=== PATIENT | female | born 1945 | race Caucasian/White ===

== ENCOUNTER 2018-03-25 14:32 | Emergency (ER) | payer BC ==
--- NOTE | 2018-03-25 16:08 | RAD ---
Indication: Head injury. CT of the brain was performed without IV contrast. Ventricular structures are midline. No midline shift is noted. The extra-axial spaces are unremarkable. There is no evidence of intracranial mass or hemorrhage. No other high or low density lesions are identified. Scalp hematoma is noted over the left parietal area. Mastoid air cells and paranasal sinuses are otherwise unremarkable. IMPRESSION: SCALP HEMATOMA ON THE LEFT. NO INTRACRANIAL MASS OR HEMORRHAGE IS NOTED.
--- NOTE | 2018-03-25 16:44 | RAD ---
Indication: Bilateral hip pain post fall. LEFT hip replacement. Comparison: December 20, 2016 Technique: AP pelvis and AP and frog-leg lateral views bilateral hips. Report: The hips are normally located. The [place] RIGHT hip is without evidence for femoral neck fracture. Minimal osteophytic lipping of the RIGHT hip without significant joint space narrowing. The bipolar LEFT hip hemiprosthesis appears normally located and without evidence for prosthesis loosening or periprosthetic fracture. No pelvic fracture or joint diastases evident. Lumbar sacral spine degenerative spondylosis and facet joint osteoarthritis. Peripheral vascular calcifications. Unremarkable soft tissue contours. IMPRESSION: #. No radiographic evidence for fracture of the [place] RIGHT hip or periprosthetic fracture of the prosthetic LEFT hip. #. As x-rays may be negative with nondisplaced hip fracture if there is persistent clinical concern MRI or in setting of contraindication to MRI or limitation in emergent access to MRI CT would be suggested.
--- NOTE | 2018-03-25 16:48 | ED ---
Head Injury - HPI Summary HPI Summary: C/o bilat hip pain, posterior head contusion, nausea s/p mechanical fall today. pt fell backwards from standing position. Denies loc, vomiting, vision chnage, RODRIGUEZ, AMS, neck pain, back pain, chest wall pain, SOB, abdo pain, UE pain, trauma to face or mouth. No anti coag. med hx = HTN, DM. 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 Mechanism Of Injury: Fall From A Standing Position Onset/Duration: Started Hours Ago Onset of Pain: Immediate Severity Currently: Moderate Severity Initially: Moderate Pain Intensity: 8 Pain Scale Used: 0-10 Numeric Location: Discrete At: - posterior head Character: Dull, Throbbing Associated Signs And Symptoms: Nausea, Swelling - Allergies/Home Medications Allergies/Adverse Reactions: Allergies Allergy/AdvReac Type Severity Reaction Status Date / Time ciprofloxacin Allergy Muscle Ache Verified 03/25/18 16:37 Iodinated Contrast- Oral and Allergy Rash Verified 03/25/18 16:37 IV Dye Sulfa (Sulfonamide Allergy Rash Verified 03/25/18 16:37 Antibiotics) amoxicillin AdvReac GI Upset Verified 03/25/18 16:37 cephalexin AdvReac GI Upset Verified 03/25/18 16:37 clarithromycin AdvReac GI Upset Verified 03/25/18 16:37 clavulanic acid AdvReac GI Upset Verified 03/25/18 16:37 [From Augmentin] codeine AdvReac GI Upset Verified 03/25/18 16:37 levofloxacin [From Levaquin] AdvReac GI Upset Verified 03/25/18 16:37 oxycodone AdvReac GI Upset Verified 03/25/18 16:37 prednisone AdvReac Shakes Verified 03/25/18 16:37 ENVIRONMENT/SEASONAL Allergy ITCHY Uncoded 03/25/18 16:29 WATERY EYES LATEX SENSITIVITY Allergy LATEX Uncoded 03/25/18 16:29 BANDAGE-REDNESS, ITCHY, SORE PMH/Surg Hx/FS Hx/Imm Hx Endocrine/Hematology History: Reports: Hx Blood Transfusions, Hx Diabetes - TYPE II Denies: Hx Anticoagulant Therapy, Hx Blood Disorders, Hx Bone Marrow Disease , Hx Systemic Lupus Erythematosus, Hx Sickle Cell Disease, Hx Thyroid Disease, Hx Anemia, Hx Unexplained Bleeding Cardiovascular History: Reports: Hx Hypertension Denies: Hx Aneurysm, Hx Angina, Hx Angioplasty, Hx Auto Implanted Cardiovert Defib, Hx Cardiac Arrest, Hx Cardiomegaly, Hx Congenital Heart Disease, Hx Congestive Heart Failure, Hx Coronary Artery Disease, Hx Deep Vein Thrombosis, Hx Embolism, Hx Hypotension, Hx Pacemaker/ICD, Hx Peripheral Vascular Disease, Hx Rheumatic Fever, Hx Syncope, Other Cardiovascular Problems/Disorders Respiratory History: Reports: Other Respiratory Problems/Disorders - SINUS INFECTION Denies: Hx Asthma, Hx Chronic Obstructive Pulmonary Disease (COPD) GI History: Reports: Hx Gastroesophageal Reflux Disease, Hx Gastrointestinal Bleed, Hx Irritable Bowel, Hx Ulcer - gastric ulcer, Other GI Disorders - ISCHEMIC COLITIS Denies: Hx Cirrhosis, Hx Crohn's Disease, Hx Diverticulosis, Hx Gall Bladder Disease, Hx Hiatal Hernia, Hx Jaundice, Hx Obstructive Bowel, Hx Ileostomy, Hx Pyloric Stenosis History: Denies: Hx Renal Disease, Other Problems/Disorders - DENIES Musculoskeletal History: Reports: Hx Arthritis - shoulders, Hx Orthopedic Injury - left hip fracture Denies: Hx Back Problems, Hx Bursitis, Hx Congenital Bone Abnormalities, Hx Fibromyalgia, Hx Gout, Hx Osteoporosis, Hx Scoliosis, Hx Tendonitis, Other Musculoskeletal History Sensory History: Reports: Hx Cataracts - surgery 11/23/15, Hx Contacts or Glasses - awaiting new prescription, Hx Glaucoma, Hx Vision Problem Denies: Hx Eye Injury, Hx Eye Prosthesis, Hx Legally Blind, Hx Macular Degeneration, Hx Deafness, Hx Hearing Aid, Hx Hearing Problem, Other Sensory Impairments Opthamlomology History: Reports: Hx Cataracts - surgery 11/23/15, Hx Contacts or Glasses - awaiting new prescription, Hx Glaucoma, Hx Vision Problem Denies: Hx Eye Injury, Hx Eye Prosthesis, Hx Legally Blind, Hx Macular Degeneration, Other Sensory Impairments Neurological History: Reports: Hx Headaches - chronic, Hx Nerve Disease - left leg DUE TO SURGERY Denies: Hx Dementia, Hx Developmental Delay, Hx Migraine, Hx Seizures, Hx Spinal Cord Injury, Hx Transient Ischemic Attacks (TIA), Other Neuro Impairments /Disorders Psychiatric History: Denies: Hx Anxiety - ON MED FOR RODRIGUEZ, Hx Panic Disorder, Hx Substance Abuse - Cancer History Cancer Type, Location and Year: bleeding ulcer, colitis Hx Chemotherapy: No - Surgical History Surgery Procedure, Year, and Place: Hysterectomy-Complete 1979. Sinus surgery. 06/30/15 L HIP REPAIR WITH HARDWARE. BILATERAL CATARACTS/GLAUCOMA. LAZER SURGERY ON EYES Hx Anesthesia Reactions: No Infectious Disease History: No Infectious Disease History: Reports: Hx of Known/Suspected MRSA, Hx Shingles, History Other Infectious Disease - gerardia Denies: Hx Clostridium Difficile - R/o C.diff, Hx Hepatitis, Hx Human Immunodeficiency Virus (HIV), Hx Tuberculosis, Hx Known/Suspected VRE, Hx Known/ Suspected VRSA, Traveled Outside the [place] in Last 30 Days - Family History Known Family History: Positive: Cardiac Disease - Social History Alcohol Use: None Hx Substance Use: No Substance Use Type: Reports: None Hx Tobacco Use: No Smoking Status (MU): Never Smoked Tobacco Review of Systems Constitutional: Negative Eyes: Negative ENT: Negative Cardiovascular: Negative Respiratory: Negative Gastrointestinal: Negative Genitourinary: Negative Positive: Other Positive: Bruising Neurological: Negative Psychological: Normal All Other Systems Reviewed And Are Negative: Yes Physical Exam - Summary Physical Exam Summary: small contusion to posterior head, no abrasion or lac. no trauma to face or mouth noted. no pain with palpation of face, neck, back, chest wall, abdomen, bilat UE, bilat LE below hips. TTP at bilat hips. pt bale to flex and extend bilat knees and hips. Neuro exam nml. Triage Information Reviewed: Yes Vital Signs On Initial Exam: Initial Vitals Temp Pulse Resp BP Pulse Ox 98.8 F 66 16 186/73 97 03/25/18 14:36 03/25/18 14:36 03/25/18 14:36 03/25/18 14:36 03/25/18 14:36 Vital Signs Reviewed: Yes Appearance: Positive: Well-Appearing Skin: Positive: Warm Head/Face: Positive: Normal Head/Face Inspection Eyes: Positive: Normal Neck: Positive: Supple Respiratory/Lung Sounds: Positive: Clear to Auscultation Cardiovascular: Positive: Normal Abdomen Description: Positive: Nontender Musculoskeletal: Positive: Normal Neurological: Positive: Normal Psychiatric: Positive: Normal AVPU Assessment: Alert - Parrish Coma Scale Best Eye Response: 4 - Spontaneous Best Motor Response: 6 - Obeys Commands Best Verbal Response: 5 - Oriented Coma Scale Total: 15 Diagnostics - Vital Signs Vital Signs Temp Pulse Resp BP Pulse Ox 03/25/18 14:36 98.8 F 66 16 186/73 97 - Laboratory Lab Statement: Any lab studies that have been ordered have been reviewed, and results considered in the medical decision making process. - Radiology hips Xray Interpretation: No Acute Changes Radiology Interpretation Completed By: Radiologist - CT brain CT Interpretation: No Acute Changes CT Interpretation Completed By: Radiologist Head Injury Course/Dx Course Of Treatment: C/o bilat hip pain, posterior head contusion, nausea s/p mechanical fall today. pt fell backwards from standing position. Denies loc, vomiting, vision chnage, RODRIGUEZ, AMS, neck pain, back pain, chest wall pain, SOB, abdo pain, UE pain, trauma to face or mouth. No anti coag. med hx = HTN, DM. PE : small contusion to posterior head, no abrasion or lac. no trauma to face or mouth noted. no pain with palpation of face, neck, back, chest wall, abdomen, bilat UE, bilat LE below hips. TTP at bilat hips. pt bale to flex and extend bilat knees and hips. Neuro exam nml. Pt ambulated at baseline after being told CT brain and xray hips were NEG. Follow up with primary care. Tylenol for pain. - Diagnoses Provider Diagnoses: Fall Discharge - Sign-Out/Discharge Documenting (check all that apply): Patient Departure - Discharge Plan Condition: Stable Disposition: HOME Patient Education Materials: Head Injury (ED) Referrals: Austyn Boyd MD [Primary Care Provider] - Additional Instructions: Follow up with primary care. Take tylenol for pain. Return to ED for any new or worsening symptoms., - Billing Disposition and Condition Condition: STABLE Disposition: Home
[2018-03-25 17:52] VITALS: BP 200/76
== END 2018-03-25 17:49 | disposition home or self-care (01) ==
LOC: ED 14:32
DX: S00.93XA Contusion of unspecified part of head, initial encounter (principal); M25.552 Pain in left hip; R11.0 Nausea; F41.9 Anxiety disorder, unspecified; I10 Essential (primary) hypertension; E11.9 Type 2 diabetes mellitus without complications; W19.XXXA Unspecified fall, initial encounter; Y92.9 Unspecified place or not applicable; Z79.899 Other long term (current) drug therapy; Z88.3 Allergy status to other anti-infective agents; Z88.2 Allergy status to sulfonamides; Z91.041 Radiographic dye allergy status; Z88.5 Allergy status to narcotic agent; Z88.8 Allergy status to other drugs, medicaments and biological substances
CPT/HCPCS: 70450; 73523; 99282

== ENCOUNTER 2018-03-31 16:19 | Emergency (ER) | payer BC ==
--- OUTSIDE RECORDS SUMMARY | 2018-03-31 16:47 | XMS REPORT ---
:1945 External Reference #:[id number] Author Organization Red Tom M.D., [facility] Address [address] [place] [address] Phone [phone] Care Team Providers Name Role Phone Austyn Boyd MD Care Team Information Special Assemblies Supervisor Unavailable Austyn Boyd MD Primary Care Physician Unavailable Payers Type Date Identification Numbers Payment Provider Subscriber Commercial Policy Number: [id number] [employer] Joaquín Hopson Huy PayID: [id number] [address] [address] [place] [address] Problems Date Description Provider Status Onset: 09/17/2013 Type 2 diabetes mellitus Active Onset: 09/17/2013 Essential hypertension Active Onset: 09/17/2013 Ocular hypertension Ottoniel Yin O.D. Active Onset: 09/17/2013 Chronic conjunctivitis Ottoniel Yin O.D. Active Onset: 01/14/2014 Chronic allergic conjunctivitis Ottoniel Yin O.D. 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 Active Onset: 04/21/2014 Tear film insufficiency Ottoniel Yin O.D. Active Onset: 04/21/2014 Cortical senile cataract Ottoniel Yin O.D. Active Onset: 04/21/2014 Nuclear senile cataract Ottoniel Yin O.D. Active Onset: 09/14/2015 Combined form of senile cataract Ottoniel Yin O.D. 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 Active Onset: 11/10/2015 Convalescence after surgery Red Tom M.D. Active Onset: 11/23/2015 Presence of intraocular lens Ottoniel Yin O.D. Active Onset: 02/12/2017 Other secondary cataract, right eye eRd Tom M.D. Active Onset: 02/12/2017 Other secondary cataract, left eye Red Tom M.D. Active Family History Date Family Member(s) Problem(s) Comments Father due to Diabetes () Father Glasses Father due to Heart Attack () Father Diabetes Father Heart Disease Father High BP Mother due to Cervical Cancer () Mother Cancer Mother Thyroid Disease Mother Glasses Mother Arthritis Social History Type Date Description Comments ETOH Use Rarely consumes alcohol Smoking Patient has never smoked Allergies, Adverse Reactions, Alerts Date Description Reaction Status Severity Comments 09/17/2013 Codeine active 09/17/2013 Sulfa Antibiotics active 09/17/2013 Codeine active 09/17/2013 Biaxin active 09/17/2013 Levaquin active 09/17/2013 Augmentin active 09/14/2015 Cipro active Medications Medication Date Status Form Strength Qnty SIG Indications Ordering Provider Timolol Maleate 09/27/ Active Solution 0.5% 15ml one H40.1131 Ottoniel 2018 drop Moon, twice a OD day both eyes Gabapentin / Active Capsules 300mg Amilcardery 0000 , Mini Sertraline HCL / Active Tablets 50mg Cowdery 0000 MD, Mini Glucophage / Active Tablets 500mg Breiman 0000 , Austyn Glyburide / Active Tablets 2.5mg Breiman 0000 , Austyn Lisinopril / Active Tablets 10mg Breiman 0000 , Austyn Onetouch Ultra / Active Strips Breiman Blue 0000 , Austyn Escitalopram / Active Tablets 5mg Cowdery Oxalate 0000 , Mini Montelukast / Active Tablets 10mg Breiman Sodium 0000 , Austyn Sertraline HCL / Active Tablets 100mg Cowdery 0000 , Mini Zyrtec Allergy / Active Capsules 10mg Unknown 0000 Betimol 02/12/ Hx Solution 0.5% 10ml 1 gtt H26.491 Red 2017 - od bid Vaishali 02/12Maria R Morrell 2017 Timolol Maleate 02/12/ Hx Solution 0.25% 15ml 1 drop Red 2016 - both Tom, 03/27/ eyes M.D. 2017 twice a day Latanoprost 06/30/ Hx Solution 0.005% 7.500m 1 drop Red 2016 - l drops Vaishali, 03/27/ both M.D. 2017 eyes every night Ketorolac 10/21/ Hx Solution 0.5% 10ml 1 drops Red Tromethamine 2015 - left Vaishali, 12/01/ eye M.D. 2016 twice a day Pred Forte 10/21/ Hx Suspension 1% 10ml 1 drops Red 2015 - left Vaishali, 12/01/ eye M.D. 2016 four times a day Tobramycin 10/21/ Hx Solution 0.3% 5ml 1 drop Red 2015 - drops Vaishali, 12/01/ left M.D. 2016 eye four times a day Timolol Maleate 12/15/ Hx Solution 0.25% 15ml 1 drop Ottoniel 2014 - both Humphrey, 01/16/ eyes O.D. 2016 twice a day Timolol Maleate 12/02/ Hx Solution 0.5% 15ml 1 drop Ottoniel 2013 - drops Humphrey, 12/15/ both O.D. 2015 eyes twice a day Latanoprost 09/17/ Hx Solution 0.005% 7.500m 1 drop Ottoniel 2013 - l drops Humphrey, 12/01/ both O.D. 2016 eyes every night Hyoscyamine / Hx Tablets 0.125mg Breiman Sulfate Mikhail Mayorga MD, 2016 Pantoprazole / Hx Tablets DR 40mg Breiman Sodium Mikhail Mayorga MD, 2016 Alphagan P / Hx Solution 0.1% Unknown 0000 - 2013 Linzess / Hx Capsules 145mcg [place] MD 2016 Mupirocin / Hx Ointment 2% Deb Mayorga MD, 2016 Nystatin/Triamci / Hx Cream 872418-9.1 Unknown nolone 0000 - Unit/GM-% 2016 Venlafaxine HCL / Hx Caps ER 24HR 37.5mg Cowdery ER 0000 Mini Mayorga MD 2016 Benzonatate / Hx Capsules 200mg Jocelynn 0000 - INT[employer]ER, July 2016 Venlafaxine HCL / Hx Caps ER 24HR 75mg Cowdery ER 0000 - , Mini 2016 Terconazole / Hx Cream 0.4% Breiman 0000 - MD, 2016 Ciprofloxacin / Hx Tablets 500mg Unknown HCL 0000 - 2016 Metronidazole / Hx Tablets 500mg Unknown 0000 - 2016 Nortriptyline / Hx Capsules 10mg Cowdery HCL 0000 - MD, Mini 2016 Tramadol HCL / Hx Tablets 50mg Haile 0000 Mukesh PEACRE, Mini 2016 Sertraline HCL / Hx Tablets 25mg Haile 0000 - MD, Mini 2016 Cholestyramine / Hx Powder Unknown 0000 - 2016 Vital Signs Date Vital Result Comment 03/28/2018 Intraocular Pressure Right Eye 12 mmHg Intraocular Pressure Left Eye 13 mmHg 12/27/2017 Intraocular Pressure Right Eye 15 mmHg Intraocular Pressure Left Eye 14 mmHg 10/15/2017 Intraocular Pressure Right Eye 13 mmHg 09/27/2017 Intraocular Pressure Right Eye 12 mmHg Intraocular Pressure Left Eye 13 mmHg 06/27/2017 Intraocular Pressure Right Eye 12 mmHg Intraocular Pressure Left Eye 12 mmHg 03/27/2017 Intraocular Pressure Right Eye 14 mmHg Intraocular Pressure Left Eye 14 mmHg 02/27/2017 Intraocular Pressure Right Eye 16 mmHg Intraocular Pressure Left Eye 16 mmHg 02/21/2017 Intraocular Pressure Right Eye 12 mmHg Intraocular Pressure Left Eye 12 mmHg 02/12/2017 Intraocular Pressure Right Eye 15 mmHg Intraocular Pressure Left Eye 15 mmHg 01/02/2017 Intraocular Pressure Right Eye 15 mmHg Intraocular Pressure Left Eye 15 mmHg 10/04/2016 Intraocular Pressure Right Eye 15 mmHg Intraocular Pressure Left Eye 15 mmHg 06/29/2016 Intraocular Pressure Right Eye 13 mmHg Intraocular Pressure Left Eye 13 mmHg 04/03/2016 Intraocular Pressure Right Eye 12 mmHg Intraocular Pressure Left Eye 12 mmHg 01/17/2016 Intraocular Pressure Right Eye 15 mmHg Intraocular Pressure Left Eye 15 mmHg 12/16/2015 Intraocular Pressure Right Eye 16 mmHg Intraocular Pressure Left Eye 16 mmHg 12/02/2015 Intraocular Pressure Right Eye 21 mmHg Intraocular Pressure Left Eye 17 mmHg 11/23/2015 Intraocular Pressure Right Eye 26 mmHg Intraocular Pressure Left Eye 32 mmHg 11/17/2015 Intraocular Pressure Right Eye 23 mmHg Intraocular Pressure Left Eye 20 mmHg 11/10/2015 Intraocular Pressure Left Eye 9 mmHg 10/20/2015 Intraocular Pressure Right Eye 16 mmHg Intraocular Pressure Left Eye 14 mmHg 09/14/2015 Intraocular Pressure Right Eye 12 mmHg Intraocular Pressure Left Eye 10 mmHg 04/15/2015 Intraocular Pressure Right Eye 11 mmHg Intraocular Pressure Left Eye 10 mmHg 01/12/2015 Intraocular Pressure Right Eye 11 mmHg Intraocular Pressure Left Eye 11 mmHg 12/15/2014 Intraocular Pressure Right Eye 14 mmHg Intraocular Pressure Left Eye 11 mmHg 10/22/2014 Intraocular Pressure Right Eye 15 mmHg Intraocular Pressure Left Eye 15 mmHg 07/22/2014 Intraocular Pressure Right Eye 11 mmHg Intraocular Pressure Left Eye 10 mmHg 04/21/2014 Intraocular Pressure Right Eye 11 mmHg Intraocular Pressure Left Eye 10 mmHg 01/14/2014 Intraocular Pressure Right Eye 14 mmHg Intraocular Pressure Left Eye 13 mmHg 09/17/2013 Intraocular Pressure Right Eye 13 mmHg Intraocular Pressure Left Eye 12 mmHg Results Test Date Test Result H/L Range Note Laboratory test finding 11/16/2015 Point of Care Glucose 115 mg/dL High 74 -106 1 Laboratory test finding 11/09/2015 Point of Care Glucose 117 mg/dL High 74 -106 2 1 [place] Block Paver: [id number] KINJALSTEPHON ODEN 2 Gran[place] Block Paver: [id number] ELYSIA LU Emiliana Procedures Date CPT Code Description Status 03/28/2018 27129 Eye Exam Est Intermediate Completed 12/27/2017 73722 Fundus Photography W/Interpretation & Report Completed 12/27/2017 65416 Ophthalmoscopy Subsequent Completed 12/27/2017 26182 Eye Exam Est Intermediate Completed 10/15/2017 58907 Ophthalmoscopy Subsequent Completed 10/15/2017 40654 Eye Exam Est Intermediate Completed 09/27/2017 37187 Eye Exam Est Intermediate Completed 06/27/2017 88360 Visual Field Exam Extended, Unilateral Or Bilateral Completed 06/27/2017 07570 Eye Exam Est Intermediate Completed 03/27/2017 54705 Eye Exam Est Intermediate Completed 03/27/2017 16475 Oct, Optic Nerve Completed 02/27/2017 34184 Eye Exam Est Intermediate Completed 02/21/2017 95254 Remove Secondary Cataract, Laser (Yag) Completed 02/12/2017 32043 Remove Secondary Cataract, Laser (Yag) Completed 01/02/2017 45058 Fundus Photography W/Interpretation & Report Completed 01/02/2017 35836 Ophthalmoscopy Subsequent Completed 01/02/2017 92079 Eye Exam Est Comprehensive Completed 10/04/2016 63775 Oct, Optic Nerve Completed 10/04/2016 29243 Eye Exam Est Intermediate Completed 06/29/2016 84112 Eye Exam Est Intermediate Completed 06/29/2016 26332 Visual Field Exam Extended, Unilateral Or Bilateral Completed 04/03/2016 17065 Fundus Photography W/Interpretation & Report Completed 04/03/2016 52038 Refraction Completed 04/03/2016 86569 Eye Exam Est Intermediate Completed 11/16/2015 46512 Extracapsular Cataract Extraction W/Intraocular Lens Completed 11/16/2015 0191T Insertion Of Anterior Segment Aqueous Drainage Device Completed 11/09/2015 01997 Extracapsular Cataract Extraction W/Intraocular Lens Completed 11/09/2015 0191T Insertion Of Anterior Segment Aqueous Drainage Device Completed 10/20/2015 13326 Eye Exam Est Intermediate Completed 10/20/2015 05538 Ophthalmic Biometry By Partial Coherence Interferometry Completed W/Intra 09/14/2015 24809 Oct Retina Completed 09/14/2015 72217 Eye Exam Est Intermediate Completed 04/15/2015 35854 Oct Retina Completed 04/15/2015 75208 Eye Exam Est Comprehensive Completed 01/12/2015 00905 Visual Field Exam Extended, Unilateral Or Bilateral Completed 01/12/2015 04655 Eye Exam Est Intermediate Completed 12/15/2014 77619 Eye Exam Est Intermediate Completed 10/22/2014 91311 Eye Exam Est Intermediate Completed 10/22/2014 12314 Oct, Optic Nerve Completed 07/22/2014 04891 Eye Exam Est Intermediate Completed 04/21/2014 75955 Fundus Photography W/Interpretation & Report Completed 04/21/2014 14389 Refraction Completed 04/21/2014 03011 Eye Exam Est Comprehensive Completed 01/14/2014 44464 Visual Field Exam Extended, Unilateral Or Bilateral Completed 01/14/2014 55556 Eye Exam Est Intermediate Completed 09/17/2013 87398 Eye Exam Est Intermediate Completed 12/19/2011 15163 Eye Exam Est Intermediate Completed 12/19/2011 15828 Visual Field Exam Extended, Unilateral Or Bilateral Completed 12/19/2011 15420 Oct, Optic Nerve Completed 08/29/2011 85787 Eye Exam Est Intermediate Completed 08/29/2011 94888 Corneal Pachymetry, Unilateral/Bilateral Completed 07/21/2011 01150 Eye Exam Est Intermediate Completed 06/19/2011 98107 Visual Field Exam Extended, Unilateral Or Bilateral Completed 06/19/2011 77456 Eye Exam Est Intermediate Completed 06/06/2011 74261 Eye Exam Est Intermediate Completed 04/20/2011 23274 Eye Exam Est Intermediate Completed 03/29/2011 14329 Eye Exam Est Intermediate Completed 03/17/2011 74303 Eye Exam Est Comprehensive Completed 03/17/2011 78737 Refraction Completed 03/17/2011 76908 Fundus Photography W/Interpretation & Report Completed 12/16/2010 73056 Eye Exam Est Intermediate Completed 11/08/2010 97586 Eye Exam Est Intermediate Completed 10/24/2010 57529 Eye Exam Est Intermediate Completed 10/17/2010 86563 Eye Exam Est Intermediate Completed 10/13/2010 17486 Eye Exam Est Intermediate Completed 09/19/2010 47445 Refraction Completed 09/19/2010 34829 Eye Exam Est Intermediate Completed 09/12/2010 86583 Eye Exam Est Intermediate Completed 06/30/2010 71187 Eye Exam Est Intermediate Completed 03/31/2010 23080 Visual Field Exam Extended, Unilateral Or Bilateral Completed 03/31/2010 86483 Eye Exam Est Intermediate Completed 03/17/2010 60885 Fundus Photography W/Interpretation & Report Completed 03/17/2010 87919 Ophthalmoscopy Initial Completed 03/17/2010 51541 Refraction Completed 03/17/2010 57744 Eye Exam New Comprehensive Completed 03/17/2010 37212 Corneal Pachymetry, Unilateral/Bilateral Completed Encounters Type Date Location Provider CPT E/M Dx Office Visit 10/29/2017 10:15a [place] [address] E11.3293 H43.811 H40.1131 Office Visit 09/13/2011 3:30p Main Office Red Tom M.D. 55214 365.10 Office Visit 08/11/2011 9:40a Main Office DR. Gisselle Mejias O.D. 35636 372.14 Office Visit 05/19/2011 2:30p Main Office Red Tom M.D. 24610 365.10 Office Visit 05/04/2011 10:15a Main Office Red Tom M.D. 46528 365.10 373.32 Office Visit 04/28/2011 9:40a Main Office DR. Gisselle Mejias O.D. 01911 372.14 Office Visit 04/05/2011 10:00a Main Office Red Tom M.D. 04042 373.32 365.10 Plan of Care Future Appointment(s):06/28/2018 9:00 am - Ottoniel Moon, OD at [id number] - Ottoniel Moon, ODH40.1131 Primary open-angle glaucoma, bilateral, mild stageFollow up:3 mos VF, sooner PRN
--- OUTSIDE RECORDS SUMMARY | 2018-03-31 16:48 | XMS REPORT ---
:1945 External Reference #:[id number] Author Organization Red Tom M.D., [facility] Address [address] [facility] [address] [place] [address] Phone [phone] Care Team Providers Name Role Phone Austyn oByd MD Care Team Information Net Developer Programmer Unavailable Austyn Boyd MD Primary Care Physician Unavailable Payers Type Date Identification Numbers Payment Provider Subscriber Commercial Policy Number: [id number] [employer] Joaquín Hopson Huy PayID: [id number] [address] [address] [place] [address] Problems Date Description Provider Status Onset: 09/17/2013 [...] Onset: 02/12/2017 Other secondary cataract, right eye Red Tom M.D. Active Onset: 02/12/2017 Other secondary [...] Mayorga MD, 2016 Nystatin/Triamci / Hx Cream [id number] Unknown nolone 0000 - Unit/GM-% 2016 Venlafaxine HCL / Hx Caps ER 24HR 37.5mg Cowdery ER 0000 Mini Mayorga MD 2016 Benzonatate / Hx Capsules 200mg Jocelynn 0000 - SURVEYOR, July 2016 Venlafaxine HCL / Hx Caps ER 24HR 75mg Cowdery ER 0000 - , Mini 2016 Terconazole / Hx Cream 0.4% Breiman 0000 - MD, 2016 Ciprofloxacin / Hx Tablets 500mg Unknown HCL 0000 - 2016 Metronidazole / Hx Tablets 500mg Unknown 0000 - 2016 Nortriptyline / Hx Capsules 10mg Cowdery HCL 0000 - , Mini 2016 Tramadol HCL / Hx Tablets 50mg Haile 0000 Mukesh PEARCE, Mini 2016 Sertraline HCL / Hx Tablets 25mg Haile 0000 - MD, Mini 2016 Cholestyramine / Hx Powder Unknown 0000 - 2016 Vital Signs Date Vital Result Comment 12/27/2017 Intraocular Pressure Right Eye 15 mmHg [...] 117 mg/dL High 74 -106 2 1 Cooperative Education Coordinator: [id number] LALIT ODEN 2 Cooperative Education Coordinator: [id number] ELYSIA Hopson Procedures Date CPT Code Description Status 03/28/2018 56729 Eye Exam Est Intermediate Completed 12/27/2017 10028 Fundus Photography W/Interpretation & Report Completed 12/27/2017 01582 Ophthalmoscopy Subsequent Completed 12/27/2017 03330 Eye Exam Est Intermediate Completed 10/15/2017 68030 Ophthalmoscopy Subsequent Completed 10/15/2017 01623 Eye Exam Est Intermediate Completed 09/27/2017 59561 Eye Exam Est Intermediate Completed 06/27/2017 77002 Visual Field Exam Extended, Unilateral Or Bilateral Completed 06/27/2017 25782 Eye Exam Est Intermediate Completed 03/27/2017 30657 Eye Exam Est Intermediate Completed 03/27/2017 10668 Oct, Optic Nerve Completed 02/27/2017 60417 Eye Exam Est Intermediate Completed 02/21/2017 56707 Remove Secondary Cataract, Laser (Yag) Completed 02/12/2017 79116 Remove Secondary Cataract, Laser (Yag) Completed 01/02/2017 23509 Fundus Photography W/Interpretation & Report Completed 01/02/2017 87709 Ophthalmoscopy Subsequent Completed 01/02/2017 42485 Eye Exam Est Comprehensive Completed 10/04/2016 55473 Oct, Optic Nerve Completed 10/04/2016 28158 Eye Exam Est Intermediate Completed 06/29/2016 56639 Eye Exam Est Intermediate Completed 06/29/2016 60606 Visual Field Exam Extended, Unilateral Or Bilateral Completed 04/03/2016 88794 Fundus Photography W/Interpretation & Report Completed 04/03/2016 48702 Refraction Completed 04/03/2016 98980 Eye Exam Est Intermediate Completed 11/16/2015 23042 Extracapsular Cataract Extraction W/Intraocular Lens Completed 11/16/2015 0191T Insertion Of Anterior Segment Aqueous Drainage Device Completed 11/09/2015 21534 Extracapsular Cataract Extraction W/Intraocular Lens Completed 11/09/2015 0191T Insertion Of Anterior Segment Aqueous Drainage Device Completed 10/20/2015 61678 Eye Exam Est Intermediate Completed 10/20/2015 28439 Ophthalmic Biometry By Partial Coherence Interferometry Completed W/Intra 09/14/2015 36739 Oct Retina Completed 09/14/2015 25293 Eye Exam Est Intermediate Completed 04/15/2015 49651 Oct Retina Completed 04/15/2015 70611 Eye Exam Est Comprehensive Completed 01/12/2015 61129 Visual Field Exam Extended, Unilateral Or Bilateral Completed 01/12/2015 05224 Eye Exam Est Intermediate Completed 12/15/2014 66005 Eye Exam Est Intermediate Completed 10/22/2014 28550 Eye Exam Est Intermediate Completed 10/22/2014 93740 Oct, Optic Nerve Completed 07/22/2014 76201 Eye Exam Est Intermediate Completed 04/21/2014 93161 Fundus Photography W/Interpretation & Report Completed 04/21/2014 70268 Refraction Completed 04/21/2014 64691 Eye Exam Est Comprehensive Completed 01/14/2014 65415 Visual Field Exam Extended, Unilateral Or Bilateral Completed 01/14/2014 22952 Eye Exam Est Intermediate Completed 09/17/2013 98915 Eye Exam Est Intermediate Completed 12/19/2011 87583 Eye Exam Est Intermediate Completed 12/19/2011 78899 Visual Field Exam Extended, Unilateral Or Bilateral Completed 12/19/2011 20313 Oct, Optic Nerve Completed 08/29/2011 68964 Eye Exam Est Intermediate Completed 08/29/2011 05864 Corneal Pachymetry, Unilateral/Bilateral Completed 07/21/2011 59832 Eye Exam Est Intermediate Completed 06/19/2011 74593 Visual Field Exam Extended, Unilateral Or Bilateral Completed 06/19/2011 18364 Eye Exam Est Intermediate Completed 06/06/2011 17992 Eye Exam Est Intermediate Completed 04/20/2011 39408 Eye Exam Est Intermediate Completed 03/29/2011 33695 Eye Exam Est Intermediate Completed 03/17/2011 49718 Eye Exam Est Comprehensive Completed 03/17/2011 91206 Refraction Completed 03/17/2011 17212 Fundus Photography W/Interpretation & Report Completed 12/16/2010 52397 Eye Exam Est Intermediate Completed 11/08/2010 13124 Eye Exam Est Intermediate Completed 10/24/2010 16876 Eye Exam Est Intermediate Completed 10/17/2010 50946 Eye Exam Est Intermediate Completed 10/13/2010 37217 Eye Exam Est Intermediate Completed 09/19/2010 39243 Refraction Completed 09/19/2010 71571 Eye Exam Est Intermediate Completed 09/12/2010 94052 Eye Exam Est Intermediate Completed 06/30/2010 46917 Eye Exam Est Intermediate Completed 03/31/2010 36251 Visual Field Exam Extended, Unilateral Or Bilateral Completed 03/31/2010 17900 Eye Exam Est Intermediate Completed 03/17/2010 08730 Fundus Photography W/Interpretation & Report Completed 03/17/2010 58796 Ophthalmoscopy Initial Completed 03/17/2010 38026 Refraction Completed 03/17/2010 50735 Eye Exam New Comprehensive Completed 03/17/2010 98193 Corneal Pachymetry, Unilateral/Bilateral Completed Encounters Type Date Location Provider CPT E/M Dx Office Visit 10/29/2017 10:15a [place] [address] E11.3293 H43.811 H40.1131 Office Visit 09/13/2011 3:30p Main Office Red Tom M.D. 57545 365.10 Office Visit 08/11/2011 9:40a Main Office DR. Gisselle Mejias O.D. 16165 372.14 Office Visit 05/19/2011 2:30p Main Office Red Tom M.D. 82129 365.10 Office Visit 05/04/2011 10:15a Main Office Red Tom M.D. 71464 365.10 373.32 Office Visit 04/28/2011 9:40a Main Office DR. Gisselle Mejias O.D. 62815 372.14 Office Visit 04/05/2011 10:00a Main Office Red Tom M.D. 09517 373.32 365.10 Plan of Care 03/28/2018 - Ottoniel Moon, [id number] Primary open-angle glaucoma, bilateral, mild stageFollow up:3 mos VF, sooner PRN
[2018-03-31] MEDS ORDERED: NS 0.9% 1000 ML* 1,000 ML IV ONE (17:25)
--- NOTE | 2018-03-31 17:46 | ED ---
Neurological HPI - HPI Summary HPI Summary: This is brody Small documenting for attending Joe Montero MD. This patient is a 72 year old F presenting to ED with a chief complaint of dizziness and fall since 1500 today. She was carrying a recycling bag when it was slipping from her hands. She lost her balance and fell on her L hip and L side of her face. She reports she still has a bump on her L side of her head from her fall last week. She doesnt usually use a cane and can ambulate just fine. She brings one in today for fear of falling again. The patient rates the pain 8/10 in severity. Symptoms aggravated by nothing. Symptoms alleviated by nothing. Patient reports feeling disoriented at times since last fall, slight lightheadedness, butt pain, L eye bruise, and L hip pain. Patient denies LOC, CP, abdominal pain, and SOB. - History of Current Complaint Chief Complaint: EDDizziness Stated Complaint: FALL/LT HIP & FACIAL INJURIES Hx Obtained From: Patient Onset/Duration: Sudden Onset, Started hours ago - 1500 today Timing: Intermittent Episodes Lasting: Current Severity: Moderate - 8/10 Pain Intensity: 8 Pain Scale Used: 0-10 Numeric - pain on L side of her face and her L hip Aggravating: Nothing Alleviating: Nothing Associated Signs and Symptoms: Positive: Dizziness - Patient reports feeling disoriented at times since last fall, slight lightheadedness, butt pain, L eye bruise, and L hip pain. Patient denies LOC, CP, abdominal pain, and SOB. - Additional Pertinent History Primary Care Physician: [id number] - Allergy/Home Medications Allergies/Adverse Reactions: Allergies Allergy/AdvReac Type Severity Reaction Status Date / Time ciprofloxacin Allergy Muscle Ache Verified 03/31/18 16:31 Iodinated Contrast- Oral and Allergy Rash Verified 03/31/18 16:31 IV Dye Sulfa (Sulfonamide Allergy Rash Verified 03/31/18 16:31 Antibiotics) amoxicillin AdvReac GI Upset Verified 03/31/18 16:31 cephalexin AdvReac GI Upset Verified 03/31/18 16:31 clarithromycin AdvReac GI Upset Verified 03/31/18 16:31 clavulanic acid AdvReac GI Upset Verified 03/31/18 16:31 [From Augmentin] codeine AdvReac GI Upset Verified 03/31/18 16:31 levofloxacin [From Levaquin] AdvReac GI Upset Verified 03/31/18 16:31 oxycodone AdvReac GI Upset Verified 03/31/18 16:31 prednisone AdvReac Shakes Verified 03/31/18 16:31 ENVIRONMENT/SEASONAL Allergy ITCHY Uncoded 03/31/18 16:31 WATERY EYES LATEX SENSITIVITY Allergy LATEX Uncoded 03/31/18 16:31 BANDAGE-REDNESS, ITCHY, SORE PMH/Surg Hx/FS Hx/Imm Hx Endocrine/Hematology History: Reports: Hx Blood Transfusions, Hx Diabetes - TYPE II Denies: Hx Anticoagulant Therapy, Hx Blood Disorders, Hx Bone Marrow Disease , Hx Systemic Lupus Erythematosus, Hx Sickle Cell Disease, Hx Thyroid Disease, Hx Anemia, Hx Unexplained Bleeding Cardiovascular History: Reports: Hx Hypertension Denies: Hx Aneurysm, Hx Angina, Hx Angioplasty, Hx Auto Implanted Cardiovert Defib, Hx Cardiac Arrest, Hx Cardiomegaly, Hx Congenital Heart Disease, Hx Congestive Heart Failure, Hx Coronary Artery Disease, Hx Deep Vein Thrombosis, Hx Embolism, Hx Hypotension, Hx Pacemaker/ICD, Hx Peripheral Vascular Disease, Hx Rheumatic Fever, Hx Syncope, Other Cardiovascular Problems/Disorders Respiratory History: Reports: Other Respiratory Problems/Disorders - SINUS INFECTION Denies: Hx Asthma, Hx Chronic Obstructive Pulmonary Disease (COPD) GI History: Reports: Hx Gastroesophageal Reflux Disease, Hx Gastrointestinal Bleed, Hx Irritable Bowel, Hx Ulcer - gastric ulcer, Other GI Disorders - ISCHEMIC COLITIS Denies: Hx Cirrhosis, Hx Crohn's Disease, Hx Diverticulosis, Hx Gall Bladder Disease, Hx Hiatal Hernia, Hx Jaundice, Hx Obstructive Bowel, Hx Ileostomy, Hx Pyloric Stenosis History: Denies: Hx Renal Disease, Other Problems/Disorders - DENIES Musculoskeletal History: Reports: Hx Arthritis - shoulders, Hx Orthopedic Injury - left hip fracture Denies: Hx Back Problems, Hx Bursitis, Hx Congenital Bone Abnormalities, Hx Fibromyalgia, Hx Gout, Hx Osteoporosis, Hx Scoliosis, Hx Tendonitis, Other Musculoskeletal History Sensory History: Reports: Hx Cataracts - surgery 11/23/15, Hx Contacts or Glasses - awaiting new prescription, Hx Glaucoma, Hx Vision Problem Denies: Hx Eye Injury, Hx Eye Prosthesis, Hx Legally Blind, Hx Macular Degeneration, Hx Deafness, Hx Hearing Aid, Hx Hearing Problem, Other Sensory Impairments Opthamlomology History: Reports: Hx Cataracts - surgery 11/23/15, Hx Contacts or Glasses - awaiting new prescription, Hx Glaucoma, Hx Vision Problem Denies: Hx Eye Injury, Hx Eye Prosthesis, Hx Legally Blind, Hx Macular Degeneration, Other Sensory Impairments Neurological History: Reports: Hx Headaches - chronic, Hx Nerve Disease - left leg DUE TO SURGERY Denies: Hx Dementia, Hx Developmental Delay, Hx Migraine, Hx Seizures, Hx Spinal Cord Injury, Hx Transient Ischemic Attacks (TIA), Other Neuro Impairments /Disorders Psychiatric History: Denies: Hx Anxiety - ON MED FOR RODRIGUEZ, Hx Panic Disorder, Hx Substance Abuse - Cancer History Cancer Type, Location and Year: bleeding ulcer, colitis Hx Chemotherapy: No - Surgical History Surgery Procedure, Year, and Place: Hysterectomy-Complete 1979. Sinus surgery. 06/30/15 L HIP REPAIR WITH HARDWARE. BILATERAL CATARACTS/GLAUCOMA. LAZER SURGERY ON EYES Hx Anesthesia Reactions: No Infectious Disease History: No Infectious Disease History: Reports: Hx of Known/Suspected MRSA, Hx Shingles, History Other Infectious Disease - gerardia Denies: Hx Clostridium Difficile - R/o C.diff, Hx Hepatitis, Hx Human Immunodeficiency Virus (HIV), Hx Tuberculosis, Hx Known/Suspected VRE, Hx Known/ Suspected VRSA, Traveled Outside the [place] in Last 30 Days - Family History Known Family History: Positive: Cardiac Disease - Social History Alcohol Use: None Hx Substance Use: No Substance Use Type: Reports: None Hx Tobacco Use: No Smoking Status (MU): Never Smoked Tobacco Review of Systems Positive: Other - L eye bruise Negative: Chest Pain Negative: Shortness Of Breath Negative: Abdominal Pain Positive: Other - butt pain, L hip pain Neurological: Other - dizziness, disoriented, slight lightheadedness; denies LOC All Other Systems Reviewed And Are Negative: Yes Physical Exam - Summary Physical Exam Summary: GENERAL: Patient is a well-developed and nourished FEMALE who is lying comfortable in the stretcher. Patient is not in any acute respiratory distress. HEAD AND FACE: Normocephalic EYES: PERRLA, EOMI x 2. Periorbital ecchymosis on the L eye. EARS: Hearing grossly intact. MOUTH: Oropharynx within normal limits. NECK: Supple, trachea is midline, no adenopathy, no JVD, no carotid bruit. CHEST: Symmetric, no tenderness at palpation LUNGS: Clear to auscultation bilaterally. No wheezing or crackles. CVS: Regular rate and rhythm, S1 and S2 present, no murmurs or gallops appreciated. ABDOMEN: Soft, non-tender. Bowel sounds are normal. No abdominal abnormal pulsations. EXTREMITIES: Full ROM in all major joints, no edema, no cyanosis or clubbing. Cervical incision is intact. Bruises on the L hip. NEURO: Alert and oriented x 3. No acute neurological deficits. Speech is normal and follows commands. SKIN: Dry and warm Triage Information Reviewed: Yes Vital Signs On Initial Exam: Initial Vitals Temp Pulse Resp BP Pulse Ox 98 F 65 16 136/52 95 03/31/18 16:31 03/31/18 16:31 03/31/18 16:31 03/31/18 16:31 03/31/18 16:31 Vital Signs Reviewed: Yes Diagnostics - Vital Signs Vital Signs Temp Pulse Resp BP Pulse Ox 03/31/18 16:31 98 F 65 16 136/52 95 - Laboratory Result Diagrams: 03/31/18 18:22 Lab Statement: Any lab studies that have been ordered have been reviewed, and results considered in the medical decision making process. - Radiology CXR Radiology Interpretation Completed By: Radiologist - No evidence for acute intrathoracic disease. ED physician has reviewed this radiology report. - EKG 1748 Cardiac Rate: NL - 60 BPM EKG Rhythm: Sinus Rhythm - prolonged OK interval, L anterior fasicular block, LVH, minimal ST elevations in anterior leads, most likely secondary to LVH EKG Comparison: No Significant Change - from 12/27/15 Course/Dx - Course Assessment/Plan: This patient is a 72 year old F presenting to ED with a chief complaint of dizziness and L hip pain and L side of face pain s/p fall since 1500 today. This patient will be signed out to Dr. Welsh, awaiting CT Brain, CT LE, CT maxillofacial, CT pelvis, and re-eval. - Differential Dx Differential Diagnoses Neuro: Positive: Other - fall with facial injury, hip injury - Diagnoses Provider Diagnoses: Fall, Facial injury, Hip injury Discharge - Sign-Out/Discharge Documenting (check all that apply): Sign-Out Patient Signing out patient TO: Sandy Welsh - Discharge Plan Condition: Stable Referrals: Austyn Boyd MD [Primary Care Provider] -
[2018-03-31] MEDS ORDERED: fentaNYL* 50 MCG/ML 2 ML VIAL (100 MCG VIAL) IV SLOW PU ONE (17:52)
--- NOTE | 2018-03-31 18:17 | RAD ---
Indication: Chest pain. Syncopal episodes. Comparison: December 27, 2015 Technique: Upright AP 1755 hours Report: Clear lungs and pleural spaces. Negative for pneumothorax. The heart, pulmonary vasculature, and mediastinal contours are unremarkable. Unremarkable osseous structures and soft tissue contours. IMPRESSION: #. No evidence for acute intrathoracic disease.
[2018-03-31 18:18] LABS: Urine Appearance Clear; Urine Blood Negative (Negative); Urine Color Straw; Urine Ketones Negative (Negative); Urine Protein Negative (Negative); Urine Red Blood Cell Trace(0-2/hpf) (Absent); Urine Specific Gravity 1.006 (1.010-1.030); Urine Urobilinogen Negative (Negative); Urine White Blood Cell Trace(0-5/hpf) (Absent)
[2018-03-31 18:29] LABS: Hematocrit 35 % (35-47); Hemoglobin 11.9 g/dl (12.0-16.0); Mean Corpuscular HGB Conc 34 g/dl (31-36); Mean Corpuscular Hemoglobin 28 pg (27-31); Mean Corpuscular Volume 84 fL (80-97); Mean Platelet Volume 7.2 um3 (7.4-10.4); Platelet Count 359 10^3/ul (150-450); Red Cell Distribution Width 15 % (10.5-15); White Blood Count 10.9 10^3/ul (3.5-10.8)
[2018-03-31 18:32] LABS: ABS Basophils 0.1 10^3/ul (0-0.2); ABS Eosinophils 0.3 10^3/ul (0-0.6); ABS Lymphocytes 1.5 10^3/ul (1.0-4.8); ABS Monocytes 0.7 10^3/ul (0-0.8); ABS Neutrophils 8.1 10^3/ul (1.5-7.7); ABS Nucleated RBC 0 10^3/ul; Eosinophil % 2.7 % (0-6); Lymphocyte % 14.3 % (25-47); Nucleated Red Blood Cells % 0
[2018-03-31 18:38] LABS: INR 0.86 (0.77-1.02)
[2018-03-31 18:46] LABS: EGFR Non-African American 101.6 (>60)
--- NOTE | 2018-03-31 19:29 | RAD ---
Indication: Recurrent falls. Hit LEFT side of head and hip. Lightheaded and disoriented. Comparison: March 25, 2018 Technique: Noncontrast CT vertex of skull through foramen magnum. Report: Mild prominence of the cerebral sulci and cerebellar fissures reflecting atrophy. Proportional mild enlargement of the ventricles. Patent basal cisterns. Negative for barraza matter white matter obscuration, intra or extra-axial hemorrhage, or mass effect. Unremarkable orbital contents. Negative for calvarial or skull base fracture. Grossly clear visualized paranasal sinuses and mastoid air spaces. Small LEFT parietal scalp hematoma significantly decreased in size compared with the March 25, 2018 exam. IMPRESSION: #. No CT evidence for traumatic brain injury or acute intracranial process. #. Mild involutional change. #. Significant partial resolution of LEFT parietal scalp hematoma.
--- NOTE | 2018-03-31 19:34 | RAD ---
INDICATION: Multiple falls. Hit LEFT side of head. Previous sinus surgery. COMPARISON: March 24, 2009 TECHNIQUE: Multidetector CT base of the skull through mandible without contrast. Multiplanar reformation. REPORT: Negative for superficial soft tissue plane edema or hematoma. Unremarkable orbital contents. The orbital and maxillary sinus margins, zygomatic arches, lamina papyracea, base of the maxilla, pterygoid plates, and nasal bones are intact. The mandible is intact. Normal temporal mandibular joint alignment. Postsurgical change of enlargement of the infundibula of the maxillary sinuses. Mild mucosal thickening and moderate indolent osseous thickening of the LEFT maxillary sinus consistent with sequela of chronic sinusitis. Negative for paranasal sinus fluid levels. Clear mastoid air spaces. IMPRESSION: #. No CT evidence for maxillofacial fracture or soft tissue injury.
--- NOTE | 2018-03-31 19:42 | RAD ---
Indication: LEFT hip and femur pain post fall. Recurrent falls. Comparison: March 25, 2018 radiographs. Technique: Noncontrast CT pelvis and LEFT femur. Multiplanar reformation. No traumatic injury or suspicious finding of the visualized pelvic viscera. Negative for free pelvic fluid. Atherosclerotic calcification at the normal diameter bifurcation of the abdominal aorta. Partial physiologic distention of the visualized inferior vena cava. Infiltrative edema or hematoma noted at the lateral LEFT hip subcutaneous tissue plane. No loculated soft tissue plane hematoma evident. Moderately severe atrophy of the LEFT hip gluteus musculature. Prosthetic LEFT hip is normally located. Negative for pelvic, periprosthetic LEFT hip, or LEFT femur fracture. Dystrophic calcifications are noted cephalad to the LEFT greater trochanter without change. Lumbar sacral spine degenerative spondylosis and facet joint osteoarthritis with advanced degenerative arthropathy at the L4-L5 and L5-S1 levels. Peripheral vascular calcifications. Report: #. Infiltrative subcutaneous tissue plane soft tissue hematoma lateral peripheral to the LEFT hip. #. Prosthetic LEFT hip is normally located. Negative for pelvic, periprosthetic LEFT hip, or LEFT femur fracture.
--- NOTE | 2018-03-31 20:07 | ED ---
Progress - Progress Note Progress Note: This is scribe Sixto White documenting for attending Dr. Sandy Welsh MD. BRAIN CT: Impression: 1. No CT evidence for traumatic brain injury or acute intracranial process. 2. Mild involutional change. 3. Significant partial resolution of LEFT parietal scalp hematoma. ED PHYSICIAN REVIEWED THIS RADIOLOGY REPORT. GCS: [address]: Impression: 1. Infiltrative subcutaneous tissue plane soft tissue hematoma lateral peripheral to the LEFT hip. 2. Prosthetic LEFT hip is normally located. Negative for pelvic, periprosthetic LEFT hip, or LEFT femur fracture. ED PHYSICIAN REVIEWED THIS RADIOLOGY REPORT. MAXILLOFACIAL CT: Impression: No CT evidence for maxillofacial fracture or soft tissue injury. ED PHYSICIAN REVIEWED THIS RADIOLOGY REPORT. PELVIS CT: Impression: 1. Infiltrative subcutaneous tissue plane soft tissue hematoma lateral peripheral to the LEFT hip. 2. Prosthetic LEFT hip is normally located. Negative for pelvic, periprosthetic LEFT hip, or LEFT femur fracture. ED PHYSICIAN REVIEWED THIS RADIOLOGY REPORT. Re-Evaluation - Re-Evaluation First Eval Re-Evaluation Time: 21:20 Comment: Patient was walked around the ED. Pt is asymptomatic, however, does only complain of pain. Patient will be discharged home with medications. Course/Dx - Course Course Of Treatment: A 72 y/o female presents to ED c/o dizziness s/p fall. A Brain CT revealed 1. No CT evidence for traumatic brain injury or acute intracranial process. 2. Mild involutional change. 3. Significant partial resolution of LEFT parietal scalp hematoma. GCS 15. A Lower Extremity/Pelvis CT revealed 1. Infiltrative subcutaneous tissue plane soft tissue hematoma lateral peripheral to the LEFT hip. 2. Prosthetic LEFT hip is normally located. Negative for pelvic, periprosthetic LEFT hip, or LEFT femur fracture. A Maxillofacial CT revealed No CT evidence for maxillofacial fracture or soft tissue injury. In the ED course, the patient recieved Fentanyl and IV fluids. During reevaluation, the patient was able to walk around the ED. Pt is asymptomatic, however, does only complain of pain. Patient will be discharged with a diagnosis of contusion. Pt is to follow up with PCP in 1-2 days. Pt is agreeable with this plan. - Diagnoses Provider Diagnoses: Contusion Discharge - Sign-Out/Discharge Documenting (check all that apply): Patient Departure - DISCHARGE - Discharge Plan Condition: Stable Disposition: HOME Prescriptions: traMADol TAB* [Ultram*] 50 mg PO Q6HR PRN #20 tab MDD 4 PRN Reason: Pain Patient Education Materials: Hip Contusion (ED) Referrals: Austyn Boyd MD [Primary Care Provider] - 2 Days Additional Instructions: FOLLOW UP WITH PRIMARY CARE PHYSICIAN IN 1-2 DAYS. RETURN TO ED FOR ANY NEW OR WORSENING SYMPTOMS.
[2018-03-31] MEDS ORDERED: Labetalol IV* 5 MG/ML 20 ML VIAL IV PUSH ONE (20:38)
[2018-03-31] MEDS ORDERED: Lisinopril TAB* 10 MG PO ONE (20:38)
[2018-03-31] MEDS ORDERED: traMADol TAB* 50 MG PO ONE (21:12)
[2018-03-31 22:05] VITALS: BP 192/70
== END 2018-03-31 22:09 | disposition home or self-care (01) ==
LOC: ED 16:19
DX: S00.03XA Contusion of scalp, initial encounter (principal); S70.02XA Contusion of left hip, initial encounter; W19.XXXA Unspecified fall, initial encounter; Y93.01 Activity, walking, marching and hiking; Y92.9 Unspecified place or not applicable; R42 Dizziness and giddiness; Z88.3 Allergy status to other anti-infective agents; Z88.5 Allergy status to narcotic agent; Z88.2 Allergy status to sulfonamides; Z91.041 Radiographic dye allergy status; Z96.642 Presence of left artificial hip joint
CPT/HCPCS: 36415; 70450; 70486; 71045; 72192; 80053; 81003; 81015; 83605; 83880; 84484; 85025; 85610; 85730; 87086; 93005; 96361; 96374; 96375; 99283; A9270-GY; J3010

== ENCOUNTER 2018-12-13 11:46 | Emergency (ER) | payer BC ==
--- OUTSIDE RECORDS SUMMARY | 2018-12-13 12:15 | XMS REPORT | Continuity of Care Document ---
:1945 External Reference #:[id number] Author Name Lary Parr PA-C Address [address] [place] [address] Care Team Providers Name Role Phone Austyn Boyd M.D. Care Team Information Acls Specialist Unavailable Austyn Boyd M.D. Primary Care Physician Unavailable Payers Date Identification Numbers Payment Provider Subscriber Policy Number: [id number] [facility] Joaquín Son PayID: [id number] [address] [address] [place] [address] Advance Directives Description No Information Available Problems Date Description Provider Status Onset: 03/02/2005 Essential hypertension Austyn Caldera M.D. Active Family History Date Family Member(s) Observation Comments Father Diabetes Father Heart Attack Father Heart Disease Mother Cancer Mother Thyroid Disease Paternal Grandfather Heart Attack Paternal Grandmother Cancer Social History Type Date Description Comments Sex Unknown Occupation Retired Tobacco Use Start: Unknown Never Smoked Cigarettes Smoking Status Reviewed: 06/30/17 Never Smoked Cigarettes Tobacco Use Start: Unknown has never smoked cigars Tobacco Use Start: Unknown has never smoked a pipe Smokeless Tobacco has never used smokeless tobacco ETOH Use does not drink alcohol Tobacco Use Start: Unknown Patient has never smoked Allergies, Adverse Reactions, Alerts Date Description Reaction Status Severity Comments 11/10/2004 Sulfa Active 11/10/2004 Codeine Active 04/24/2006 Augmentin Active 04/24/2006 Biaxin Active 06/28/2006 Keflex Active 06/28/2006 Levaquin Active 07/30/2006 Hydrocodone Active 01/05/2010 Lidocaine Active 07/02/2017 Tetracycline Active 07/02/2017 Doxycycline Active 07/02/2017 Prednisone Active 07/02/2017 Requip Active 07/02/2017 Ciprofloxacin Active Medications Medication Date Status Form Strength Qnty SIG Indications Ordering Provider Glucophage Active Tablets 500mg 14Day Unknown /0000 s Glyburide Active Tablets 1.25mg Unknown Lisinopril Active Tablets 10mg Unknown / Tramadol HCL Active Unknown / Hyoscyamine Active Unknown Sertraline HCL Active Tablets 100mg Breiman, Austyn George M.D. Gabapentin Active Capsules 300mg Breiman, Austyn George M.D. Lansoprazole Active Capsules DR 30mg Breiman, Austyn George M.D. Timolol Maleate Active Solution 0.25% Unknown Aspirin Active Chewtabs 81mg 1 by mouth Breiman, / every day Austyn George M.D. Culturelle Active Capsules 1 by mouth Self / every day Zylet 05/05 Hx Suspension 0.5-0.3% Austyn Amanda Lorelei neil M.D. 07/01 Medrol Dosepak 01/02 Hx Tablets 4mg 1Pack Follow The Austyn Patel Schedule Strominge - On Honey neil M.D. 01/05 Bacitracin 12/26 Hx 1Tube apply to 478.11 Austyn Patel Oisavage rim of Strominge - nose both Porsche neil 01/05 sides the am and the pm. Mucinex Maximum 12/26 Hx Tablets ER 1200mg 30tab 1 tab po 473.0 Austyn Patel 12HR s every 12 Strominge - hours. Porsche neil 01/05 Medrol Dosepak 07/25 Hx Tablets 4mg 1Pak follow 784.0 Austyn Patel schedule Strominge - on willard neil M.D. 12/26 Clarinex 07/11 Hx Tablets 5mg 90day 1 PO qd Austyn Patel s Strominge - Porsche neil 01/05 Medrol Dosepak 07/05 Hx Tablets 4mg 1Pak Follow 473.0 Austyn Patel Schedule Strominge - On Willard Porsche neil 07/25 Nasonex 07/05 Hx Suspension 50mcg/Act 90day 1-2 Sprays 473.0 Austyn Meño. s Intranasal Strominge - bid rPorsche 01/05 Gentamicin In NS 08/27 Hx Infusion 80mg 1lite mix in one Austyn N. r liter of Strominge - ns and rJeffersonDBo 01/05 irrig both nostrils with 50 cc bid Doxycycline 06/28 Hx Capsules 100mg 3Week 1 po bid 473.8 Austyn Patel Hyclate s Strominge - Porsche neil 07/26 Lortab 06/28 Hx Tablets 5mg;500 30tab 1-2 po q4h 473.8 Austyn NBo mg s pain Stromoriana - Porsche neil 07/26 Topamax 06/14 Hx Tablets 25mg 90day 25 mg bid 784.0 Austyn N. s for one Strominge - week, then Porsche neil 07/26 50 mg bid /2005 for one week, then 100 mg bid as tolerated. stay on lower dose for confusion Cipro 04/24 Hx Tablets 750mg 14Day 1 po bid Austyn N. s Lorelei neil M.D. 06/28 Imitrex Nasal 11/22 Hx Solution 5mg 12uni 1 346.90 Austyn Amanda [place] ts intranasal Strominge - prn Porsche neil 03/14 headache may repeat in 2 hours if needed Gentamicin In NS 11/08 Hx Infusion 80mg 1Lite mix in 1 Austyn N. r liter of Strominge - ns and rPorsche 07/26 irrigate both nostrils with 50 cc bid Bactroban 10/24 Hx Cream 2% 1tube 1 mix 09/12 N. tube in Strominge - liter ns rashaad M.DBo 11/22 irrigate both nostrils bid Bactroban 10/23 Hx Ointment 2% 1Tube mix 09/12 473.0 Austyn Patel Ointment tube in a Strominge - liter Porsche neil 10/24 bottle of sterile saline. irrigate nose bid Amitriptyline 10/22 Hx Unknown /2005 - 06/28 Protonix 10/22 Hx Unknown /2005 - 12/26 Maida 03/16 Hx Tablets 180mg 30tab 1 po qd Austyn N. /2005 s prn Strominge - allergies Porsche neil 10/23 Nasonex 03/02 Hx Suspension 50mcg 1unit 2 squirts 473.2 Austyn N. Intranasal [place] /2004 s in each Strominge - nostril qd rPorsche 11/22 Flonase 01/03 Hx Suspension 50mcg/Spr 1unit 2 Sprays 473.0 Austyn N. /2005 ay s In Each Strominge - Nostril qd Porsche neil 03/02 Doxycycline 12/09 Hx Capsules 100mg 3week 1 po bid 473.0 Austyn N. Hyclate /2004 s Melissainge - Porsche neil 10/23 Premarin Hx Tablets 0.3mg Unknown - 07/01 Hydrochlorothiazi Hx Capsules 12.5mg 14Day Unknown s - 12/26 Requip 00/ Hx Unknown / - 01/05 Neurontin Hx Capsules 300mg Unknown - 07/01 Ultram ER 00 Hx Unknown - 07/01 Xalatan Hx Solution 0.005% - 07/01 Cefuroxime Axetil Hx Tablets 250mg Breiman, /0000 Austyn George M.D. 07/01 Amoxicillin 00 Hx Capsules 500mg Breiman, 0000 Austyn George M.D. 07/01 Immunizations Description No Information Available Vital Signs Date Vital Result Comment 07/02/2017 2:32pm BP Systolic 159 mmHg BP Diastolic 67 mmHg Heart Rate 72 /min Respiratory Rate 17 /min Weight 146.00 lb Weight 66.226 kg Height 64.50 inches 5'4.50" Height in cm's 163.8 cm BMI (Body Mass Index) 24.7 kg/m2 01/05/2010 2:05pm BP Systolic 136 mmHg BP Diastolic 78 mmHg Heart Rate 74 /min Respiratory Rate 16 /min 12/27/2007 11:08am BP Systolic 131 mmHg BP Diastolic 82 mmHg Heart Rate 77 /min Respiratory Rate 16 /min 07/05/2007 2:16pm BP Systolic 152 mmHg BP Diastolic 64 mmHg Heart Rate 87 /min Respiratory Rate 16 /min 01/09/2006 9:55am BP Systolic 139 mmHg BP Diastolic 75 mmHg Heart Rate 103 /min Respiratory Rate 16 /min Results Test Date Facility Test Result H/L Range Note Laboratory test 05/08/2011 [facility] (SEE NOTE) 1 finding c/o Department of Laboratories Screen [place], [place] [id number] [phone] [facility] (SEE NOTE) 2 Laboratory test 07/30/2006 [facility] Surgery Pathology inflammation finding c/o Department of Laboratories [place], [place] [id number] [phone] Laboratory test 07/19/2006 [facility] CBC w/Electronic HCT 34 finding c/o Department of Laboratories Diff [place], [place] [id number] [phone] Xray 03/14/2006 [facility] [place] [facility] Sinus right max sin [address] [place], [place] [id number] [phone] Laboratory test 01/15/2006 [facility] Miscellaneous Cult negative finding c/o Department of Laboratories [place] [address] [phone] Laboratory test 10/23/2005 [facility] Anaerobic negative finding c/o Department of Laboratories Fluid/Swab Culture [place], [place] [id number] [phone] Other lab test - see note MRSA Laboratory test 10/23/2005 [facility] Miscellaneous Cult MRSA finding c/o Department of Laboratories & Sens extr [place], [place] [id number] [phone] Xray 03/09/2005 [facility] [place] [facility] Sinus see linked [address] triage [place], [place] [address] [phone] Laboratory test 12/07/2004 [facility] Miscellaneous Cult MRSA sen to 3 finding c/o Department of Laboratories & Sens extr tetracy [place], [place] [id number] [phone] 1 TEST RESULT RETURNED FROM REFERENCE LABORATORY. HARDCOPY REPORT TO BE SENT TO PHYSICIAN(S) OFFICE. 2 TEST RESULT RETURNED FROM REFERENCE LABORATORY. HARDCOPY REPORT TO BE SENT TO PHYSICIAN(S) OFFICE. 3 12/09/04 PER RNS INFORMED PT THAT CULTURE GREW OUT SOMETHING THAT IS RESISTANT TO ALMOST ALL ORAL ANTIBIOTICS- HE FAXED AN RX FOR A 3 WEEK COURSE OF DOXYCYCLINE DS Procedures Date Code Description Status 12/02/2018 91695 Removal Wax Impaction Completed 07/02/2017 39229 Tympanometry Completed 07/02/2017 76866 Comprehensive Audiogram Completed 07/02/2017 78783 Binocular Microscopy Completed 01/05/2010 22185 Nasal Endoscopy, Diagnostic Completed 07/05/2007 83166 Nasal Endoscopy, Diagnostic Completed 09/17/2006 81951 Endoscopy Nasal/Sinus Max Sinusco Completed 08/14/2006 86791 Nasal Endoscopy W/ Debridement Completed 07/30/2006 44752 Nasal Endoscopy W/ Debridement Completed 07/20/2006 83026 Nasal Endoscopy W/Maxllary Antrostomy W/Excision Of Poylp Completed 06/14/2006 28037 Tympanometry Completed 06/14/2006 68881 Comprehensive Audiogram Completed 01/09/2006 70629 Endoscopy Nasal/Sinus Max Sinusco Completed 10/23/2005 75761 Nasal Endoscopy, Diagnostic Completed 01/09/2005 23950 Nasal Endoscopy, Diagnostic Completed 11/10/2004 64940 Nasal Endoscopy, Diagnostic Completed 06/22/2004 12895 Comprehensive Audiogram Completed 02/24/2004 05152 Nasal Endoscopy, Diagnostic Completed Encounters Type Date Location Provider Dx Diagnosis Office Visit 07/02/2017 [place],After Austyn Patel 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, bilateral H92.03 Otalgia, bilateral M50.91 Cervical disc disorder, unspecified, high cervical region Office Visit 05/05/2011 11:30a [place],After [place] 477.8 Rhinitis, 09/10/07 [place] PATIENT SERVICES COORDINATOR Perennial, Allergy Office Visit 01/05/2010 1:45p [place],After Austyn Patel 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0 Headache Or Facial Pain 401.9 High Blood Pressure Or Hypertension/Unspecified Office Visit 07/05/2007 2:15p [place],After 09/10/07 [place], 473.0 Sinusitis, [place] PATIENT SERVICES COORDINATOR Chronic Maxillary 477.8 Rhinitis, Perennial, Allergy 784.0 Headache Or Facial Pain Office Visit 06/28/2006 [place],After Austyn Patel 473.8 Sinusitis, 9:00a 09/10/07 Porsche Caldera Chronic [place]- 401.9 High Blood Pressure Or Hypertension/Unspecified Office Visit 06/14/2006 10:15a [place],After Austyn Patel 784.0 Headache Or 09/10/07 Porsche Caldera Facial Pain 473.0 Sinusitis, Chronic Maxillary 389.10 Hearing Loss, Sensorineural/Unspecified 401.9 High Blood Pressure Or Hypertension/Unspecified Office Visit 06/14/2006 10:00a [place],After Austyn Patel 784.0 Headache Or 09/10/07 Porsche Caldera Facial Pain 473.0 Sinusitis, Chronic Maxillary 389.10 Hearing Loss, Sensorineural/Unspecified 401.9 High Blood Pressure Or Hypertension/Unspecified Office Visit 03/14/2006 [place],After Austyn Patel 473.0 Sinusitis, 2:15p 09/10/07 Porsche Caldera Chronic Maxillary 389.10 Hearing Loss, Sensorineural/Unspecified 401.9 High Blood Pressure Or Hypertension/Unspecified Office Visit 11/22/2005 [place],After Austyn Patel 473.0 Sinusitis, 3:45p 09/10/07 Porsche Caldera Chronic Maxillary 346.90 Migrane, W/O Mention Of Intractable/Unspecified 401.9 High Blood Pressure Or Hypertension/Unspecified Office Visit 03/02/2005 [place],After Austyn Patel 473.1 Sinusitis, 9:15a 09/10/07 Porsche Caldera Chronic Frontal 461.0 Sinusitis, Acute Maxillary 473.2 Sinusitis, Chronic Ethmoidal 401.9 High Blood Pressure Or Hypertension/Unspecified Office Visit 01/03/2005 [place],After Austyn Patel 473.0 Sinusitis, 9:00a 09/10/07 Porsche Caldera Chronic Maxillary Office Visit 12/28/2004 [place],After Austyn Patel 473.0 Sinusitis, 1:45p 09/10/07 Porsche Caldera Chronic Maxillary Office Visit 12/07/2004 [place],After Austyn Patel 473.0 Sinusitis, 11:00a 09/10/07 Porsche Caldera Chronic Maxillary Office Visit 09/22/2004 [place],After Austyn Patel 461.9 Sinusitis, 9:30a 09/10/07 Porsche Caldera Acute/Unspecifie d 466.0 Bronchitis, Acute/Viral Office Visit 08/16/2004 [place],After Austyn Patel 461.0 Sinusitis, 4:00p 09/10/07 Porsche Caldera Acute Maxillary Office Visit 08/16/2004 [place],After Austyn Patel 461.0 Sinusitis, 3:45p 09/10/07 Porsche Caldera Acute Maxillary Office Visit 07/11/2004 [place],After Austyn Patel 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
[2018-12-13 12:45] VITALS: BP 166/76
--- NOTE | 2018-12-13 14:45 | UC ---
Throat Pain/Nasal Carlito HPI - HPI Summary HPI Summary: 73-year-old female presents with one-week history nasal congestion, sinus pressure, green nasal discharge, sore throat, and progressively worsening productive cough. Denies fever, chills, ear pain, dysphagia, chest pain, shortness of breath, abdominal pain, nausea, or vomiting. - History of Current Complaint Chief Complaint: UCGeneralIllness Stated Complaint: COUGH,CONGESTION Time Seen by Provider: 12/13/18 14:24 Hx Obtained From: Patient Pain Intensity: 7 - Allergies/Home Medications Allergies/Adverse Reactions: Allergies Allergy/AdvReac Type Severity Reaction Status Date / Time ciprofloxacin Allergy Muscle Ache Verified 12/13/18 12:35 Iodinated Contrast- Oral and Allergy Rash Verified 12/13/18 12:35 IV Dye Sulfa (Sulfonamide Allergy Rash Verified 12/13/18 12:35 Antibiotics) amoxicillin AdvReac GI Upset Verified 12/13/18 12:35 cephalexin AdvReac GI Upset Verified 12/13/18 12:35 clarithromycin AdvReac GI Upset Verified 12/13/18 12:35 clavulanic acid AdvReac GI Upset Verified 12/13/18 12:35 [From Augmentin] codeine AdvReac GI Upset Verified 12/13/18 12:35 ibuprofen AdvReac Hx of Verified 12/13/18 12:47 ulcers levofloxacin [From Levaquin] AdvReac GI Upset Verified 12/13/18 12:35 oxycodone AdvReac GI Upset Verified 12/13/18 12:35 prednisone AdvReac Shakes Verified 12/13/18 12:35 ENVIRONMENT/SEASONAL Allergy ITCHY Uncoded 12/13/18 12:35 WATERY EYES LATEX SENSITIVITY Allergy LATEX Uncoded 12/13/18 12:35 BANDAGE-REDNESS, ITCHY, SORE Home Medications: Home Medications Dextromethorphan Polistirex [Delsym] 30 mg PO DAILY PRN 12/13/18 [History Confirmed 12/13/18] PMH/Surg Hx/FS Hx/Imm Hx Endocrine History: Diabetes Cardiovascular History: Hypertension GI/ History: Gastroesophageal Reflux Other History Of: Negative For: Anticoagulant Therapy - Surgical History Surgical History: Yes Surgery Procedure, Year, and Place: Hysterectomy-Complete 1979. Sinus surgery. 06/30/15 L HIP REPAIR WITH HARDWARE. BILATERAL CATARACTS/GLAUCOMA. LAZER SURGERY ON EYES - Family History Known Family History: Positive: Cardiac Disease - Social History Occupation: Retired Lives: With Family Alcohol Use: Rare Substance Use Type: None Smoking Status (MU): Never Smoked Tobacco - Immunization History Most Recent Influenza Vaccination: MAY 2015 Most Recent Tetanus Shot: 05/2012 Most Recent Pneumonia Vaccination: oct 2014 Review of Systems All Other Systems Reviewed And Are Negative: Yes Constitutional: Positive: Fatigue. Negative: Fever, Chills Skin: Negative: Rash Eyes: Negative: Drainage, Eye Redness ENT: Positive: Sore Throat, Nasal Discharge, Sinus Congestion, Sinus Pain/ Tenderness. Negative: Ear Ache Respiratory: Positive: Cough. Negative: Shortness Of Breath Cardiovascular: Negative: Palpitations, Chest Pain Gastrointestinal: Negative: Abdominal Pain, Vomiting, Diarrhea, Nausea Genitourinary: Positive: Negative Musculoskeletal: Positive: Negative Neurological: Positive: Negative Is Patient Immunocompromised?: No Physical Exam - Summary Physical Exam Summary: GENERAL APPEARANCE: Well developed, well nourished, alert and cooperative, and appears to be in no acute distress. EYES: Conjunctiva clear. No drainage. Vision is grossly intact. EARS: External auditory canals and tympanic membranes clear, hearing grossly intact. NOSE: Moderate nasal congestion with mucosal erythema and edema. Maxillary sinus tenderness. THROAT: Mild pharyngeal erythema with post-nasal drip. No tonsilar inflammation , swelling, exudate, or lesions. NECK: Neck supple, non-tender without lymphadenopathy. CARDIAC: Normal S1 and S2. No S3, S4 or murmurs. Rhythm is regular. There is no peripheral edema, cyanosis or pallor. Extremities are warm and well perfused. Capillary refill is less than 2 seconds. Peripheral pulses intact. LUNGS: Clear to auscultation without rales, rhonchi, wheezing or diminished breath sounds. Non-productive cough. ABDOMEN: Positive bowel sounds. Soft, nondistended, nontender. No guarding or rebound. No masses or hepatosplenomegally. MUSKULOSKELETAL: ROM intact to all extremities. No joint erythema or tenderness. Normal muscular development. Normal gait. SKIN: Skin normal color, texture and turgor with no lesions or eruptions. Triage Information Reviewed: Yes Vital Signs: Initial Vital Signs Temp 97.8 F 12/13/18 12:40 Pulse 56 12/13/18 12:40 Resp 20 12/13/18 12:40 BP 166/76 12/13/18 12:40 Pulse Ox 98 12/13/18 12:40 Vital Signs Reviewed: Yes Throat Pain/Nasal Course/Dx - Course Course Of Treatment: 73-year-old female presents with one-week history nasal congestion, sinus pressure, green nasal discharge, sore throat, and progressively worsening productive cough. Denies fever, chills, ear pain, dysphagia, chest pain, shortness of breath, abdominal pain, nausea, or vomiting. Afebrile. Hypertensive otherwise vital signs stable. Exam was remarkable for moderate nasal congestion with mucosal erythema and edema, maxillary sinus tenderness, mild pharyngeal erythema with postnasal drip, and loose nonproductive cough. Considering the duration and worsening of her symptoms will treat for an acute sinusitis with doxycycline 100 mg twice a day 7 days as well as symptomatic treatment including saline rinses and fluticasone nasal spray. She is to follow -up with her primary care provider in 3-5 days if symptoms do not improve. Anticipatory guidance and warning symptoms reviewed with patient. Verbalized understanding and agrees with plan of care. - Differential Dx/Diagnosis Differential Diagnosis/HQI/PQRI: Influenza, Sinusitis, URI Provider Diagnosis: Acute sinusitis, Post-nasal drip Discharge - Sign-Out/Discharge Documenting (check all that apply): Patient Departure All imaging exams completed and their final reports reviewed: No Studies - Discharge Plan Condition: Stable Disposition: HOME Prescriptions: Benzonatate CAP* [Tessalon 100 MG CAP*] 100 mg PO TID PRN #30 cap PRN Reason: Cough Doxycycline Hyclate 100 mg PO BID 7 Days #14 tablet Fluticasone NASAL SPRAY 50MCG* [Flonase NASAL SPRAY 50MCG*] 2 spray BOTH NARES DAILY #1 btl Patient Education Materials: Sinusitis (ED) Referrals: Austyn Boyd MD [Primary Care Provider] - 3 Days (Follow up in 3-5 days if no improvement in symptoms.) Additional Instructions: Your history and exam are consistent with a sinus infection. Start doxycycline 1 tab twice a day for 7 days. Drink plenty of fluids to avoid dehydration especially if you are running any fever. Use a saline rinse kit such as Neti Pot or NeilMed at least twice a day to help thin secretions and promote drainage of the sinuses. Use fluticasone (Flonase) nasal spray 2 sprays each nostril once daily. May use Tessalon Perles 1 cap every 8 hours as needed for cough. Take over the counter acetaminophen (Tylenol) or ibuprofen (Advil, Motrin) according to directions as needed for pain or fever. Follow up with your primary care provider in 3-5 days if symptoms persist. Seek immediate medical attention in the emergency room if you have fever greater than 100.5 F despite taking acetaminophen or ibuprofen, have chest pain , difficulty breathing, are unable to swallow, or have any worsening of symptoms. - Billing Disposition and Condition Condition: STABLE Disposition: Home - Attestation Statements Provider Attestation: Per institutional requirements, I have reviewed the chart, however, I was not consulted specifically or made aware of this patient by the midlevel provider. I did not personally evaluate, interact with , or disposition this patient.
== END 2018-12-13 14:54 | disposition home or self-care (01) ==
LOC: UCCORT 11:46
DX: J01.90 Acute sinusitis, unspecified (principal); R09.82 Postnasal drip; E11.9 Type 2 diabetes mellitus without complications; I10 Essential (primary) hypertension; Z91.040 Latex allergy status; Z91.09 Other allergy status, other than to drugs and biological substances; Z88.5 Allergy status to narcotic agent; Z88.8 Allergy status to other drugs, medicaments and biological substances; Z88.1 Allergy status to other antibiotic agents; Z91.041 Radiographic dye allergy status
CPT/HCPCS: 99212; G0463

== ENCOUNTER 2018-12-22 08:12 | Emergency (ER) | payer BC ==
[2018-12-22] MEDS ORDERED: NS 0.9% 1000 ML** 1,000 ML IV ONE ×2 (08:28→11:03)
[2018-12-22] MEDS ORDERED: Metoclopramide IV* 5 MG/ML 2 ML VIAL IV ONE (08:29)
--- NOTE | 2018-12-22 08:53 | ED ---
GI/ HPI - HPI Summary HPI Summary: This patient is a 73 year old F presenting to [facility] accompanied by a male with a chief complaint of N/V/D since 3 days ago. The patient rates the pain 9/10 in severity. Patient reports difficulty eating. Patient denies abdominal pain, CP, or SOB. The patients PCP sent her with suspected C diff because of the patient recently taking two types of antibiotics. The patient states that her PCP gave her an anti-emetic yesterday with slight improvement. She has recently been on Doxycycline for acute sinusitis. She reports 8 episodes of diarrhea a day. She last vomited earlier today. The symptoms started about 3 days after starting the Doxycycline. Allergy to IV contrast. PMHX C diff, IBS. No PMHx diverticulitis. - History of Current Complaint Chief Complaint: EDNauseaVomitDiarrh Time Seen by Provider: 12/22/18 08:24 Stated Complaint: VOMITING/DIARRHEA PER PT Hx Obtained From: Patient Onset/Duration: Started Days Ago Timing: Constant Current Severity: Severe - 9/10 Pain Intensity: 9 Associated Signs and Symptoms: Positive: Nausea, Vomiting, Diarrhea - Additional Pertinent History Primary Care Physician: [id number] - Allergy/Home Medications Allergies/Adverse Reactions: Allergies Allergy/AdvReac Type Severity Reaction Status Date / Time ciprofloxacin Allergy Muscle Ache Verified 12/22/18 08:29 Iodinated Contrast- Oral and Allergy Rash Verified 12/22/18 08:29 IV Dye latex Allergy Rash Verified 12/22/18 08:30 Sulfa (Sulfonamide Allergy Rash Verified 12/22/18 08:29 Antibiotics) amoxicillin AdvReac GI Upset Verified 12/22/18 08:29 cephalexin AdvReac GI Upset Verified 12/22/18 08:29 clarithromycin AdvReac GI Upset Verified 12/22/18 08:29 clavulanic acid AdvReac GI Upset Verified 12/22/18 08:29 [From Augmentin] codeine AdvReac GI Upset Verified 12/22/18 08:29 ibuprofen AdvReac Hx of Verified 12/22/18 08:29 ulcers levofloxacin [From Levaquin] AdvReac GI Upset Verified 12/22/18 08:29 oxycodone AdvReac GI Upset Verified 12/22/18 08:29 prednisone AdvReac Shakes Verified 12/22/18 08:29 ENVIRONMENT/SEASONAL Allergy ITCHY Uncoded 12/22/18 08:29 WATERY EYES PMH/Surg Hx/FS Hx/Imm Hx Endocrine/Hematology History: Reports: Hx Blood Transfusions, Hx Diabetes - TYPE II Denies: Hx Anticoagulant Therapy, Hx Blood Disorders, Hx Bone Marrow Disease , Hx Systemic Lupus Erythematosus, Hx Sickle Cell Disease, Hx Thyroid Disease, Hx Anemia, Hx Unexplained Bleeding Cardiovascular History: Reports: Hx Hypertension Denies: Hx Aneurysm, Hx Angina, Hx Angioplasty, Hx Auto Implanted Cardiovert Defib, Hx Cardiac Arrest, Hx Cardiomegaly, Hx Congenital Heart Disease, Hx Congestive Heart Failure, Hx Coronary Artery Disease, Hx Deep Vein Thrombosis, Hx Embolism, Hx Hypotension, Hx Pacemaker/ICD, Hx Peripheral Vascular Disease, Hx Rheumatic Fever, Hx Syncope, Other Cardiovascular Problems/Disorders Respiratory History: Reports: Other Respiratory Problems/Disorders - SINUS INFECTION Denies: Hx Asthma, Hx Chronic Obstructive Pulmonary Disease (COPD) GI History: Reports: Hx Gastroesophageal Reflux Disease, Hx Gastrointestinal Bleed, Hx Irritable Bowel, Hx Ulcer - gastric ulcer, Other GI Disorders - ISCHEMIC COLITIS Denies: Hx Cirrhosis, Hx Crohn's Disease, Hx Diverticulosis, Hx Gall Bladder Disease, Hx Hiatal Hernia, Hx Jaundice, Hx Obstructive Bowel, Hx Ileostomy, Hx Pyloric Stenosis History: Denies: Hx Renal Disease, Other Problems/Disorders - DENIES Musculoskeletal History: Reports: Hx Arthritis - shoulders, Hx Orthopedic Injury - left hip fracture Denies: Hx Back Problems, Hx Bursitis, Hx Congenital Bone Abnormalities, Hx Fibromyalgia, Hx Gout, Hx Osteoporosis, Hx Scoliosis, Hx Tendonitis, Other Musculoskeletal History Sensory History: Reports: Hx Cataracts - surgery 11/23/15, Hx Contacts or Glasses - awaiting new prescription, Hx Glaucoma, Hx Vision Problem Denies: Hx Eye Injury, Hx Eye Prosthesis, Hx Legally Blind, Hx Macular Degeneration, Hx Deafness, Hx Hearing Aid, Hx Hearing Problem, Other Sensory Impairments Opthamlomology History: Reports: Hx Cataracts - surgery 11/23/15, Hx Contacts or Glasses - awaiting new prescription, Hx Glaucoma, Hx Vision Problem Denies: Hx Eye Injury, Hx Eye Prosthesis, Hx Legally Blind, Hx Macular Degeneration, Other Sensory Impairments Neurological History: Reports: Hx Headaches - chronic, Hx Nerve Disease - left leg DUE TO SURGERY Denies: Hx Dementia, Hx Developmental Delay, Hx Migraine, Hx Seizures, Hx Spinal Cord Injury, Hx Transient Ischemic Attacks (TIA), Other Neuro Impairments /Disorders Psychiatric History: Denies: Hx Anxiety - ON MED FOR RODRIGUEZ, Hx Panic Disorder, Hx Substance Abuse - Cancer History Cancer Type, Location and Year: bleeding ulcer, colitis Hx Chemotherapy: No - Surgical History Surgery Procedure, Year, and Place: Hysterectomy-Complete 1979. Sinus surgery. 06/30/15 L HIP REPAIR WITH HARDWARE. BILATERAL CATARACTS/GLAUCOMA. LAZER SURGERY ON EYES Hx Anesthesia Reactions: No Infectious Disease History: No Infectious Disease History: Reports: Hx of Known/Suspected MRSA, Hx Shingles, History Other Infectious Disease - gerardia Denies: Hx Clostridium Difficile - R/o C.diff, Hx Hepatitis, Hx Human Immunodeficiency Virus (HIV), Hx Tuberculosis, Hx Known/Suspected VRE, Hx Known/ Suspected VRSA, Traveled Outside the [place] in Last 30 Days - Family History Known Family History: Positive: Cardiac Disease - Social History Alcohol Use: None Hx Substance Use: No Substance Use Type: Reports: None Hx Tobacco Use: No Smoking Status (MU): Never Smoked Tobacco Review of Systems ENT: Other - difficulty eating Negative: Chest Pain Negative: Shortness Of Breath Positive: Vomiting, Diarrhea, Nausea. Negative: Abdominal Pain All Other Systems Reviewed And Are Negative: Yes Physical Exam - Summary Physical Exam Summary: GENERAL: Patient is a well-developed and nourished female who is lying comfortable in the stretcher. Patient is not in any acute respiratory distress. HEAD AND FACE: Normocephalic EYES: PERRLA, EOMI x 2. EARS: Hearing grossly intact. MOUTH: Oropharynx within normal limits. NECK: Supple, trachea is midline, no adenopathy, no JVD, no carotid bruit. CHEST: Symmetric, no tenderness at palpation LUNGS: Clear to auscultation bilaterally. No wheezing or crackles. CVS: Regular rate and rhythm, S1 and S2 present, no murmurs or gallops appreciated. ABDOMEN: Soft, TTP lower abdomen. Bowel sounds are normal. No abdominal abnormal pulsations. EXTREMITIES: Full ROM in all major joints, no edema, no cyanosis or clubbing. NEURO: Alert and oriented x 3. No acute neurological deficits. Speech is normal and follows commands. SKIN: Dry and warm Triage Information Reviewed: Yes Vital Signs On Initial Exam: Initial Vitals Temp Pulse Resp BP Pulse Ox 96.6 F 112 20 192/104 94 12/22/18 08:15 12/22/18 08:15 12/22/18 08:15 12/22/18 08:15 12/22/18 08:15 Vital Signs Reviewed: Yes Diagnostics - Vital Signs Vital Signs Temp Pulse Resp BP Pulse Ox 12/22/18 08:27 196/116 12/22/18 08:15 96.6 F 112 20 192/104 94 - Laboratory Result Diagrams: 12/22/18 09:45 12/22/18 09:45 Lab Statement: Any lab studies that have been ordered have been reviewed, and results considered in the medical decision making process. - CT A/P CT Interpretation Completed By: Radiologist Summary of CT Findings: 1. NO EVIDENCE FOR ACUTE FINDING. 2. HEPATIC STEATOSIS. 3. POSSIBLE CHOLELITHIASIS. 4. SMALL BUBBLES OF AIR WITHIN THE URINARY BLADDER. RECOMMEND CLINICAL CORRELATION. 4. 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 5. STATUS POST HYSTERECTOMY. ED physician has reviewed this report GIGU Course/Dx - Course Course Of Treatment: This patient is a 73 year old F presenting to [facility] accompanied by a male with a chief complaint of N/V/D since 3 days ago. The patient rates the pain 9/10 in severity. Patient reports difficulty eating. Patient denies abdominal pain, CP, or SOB. CT abd/pelvis reveals, per radiologist, 1. NO EVIDENCE FOR ACUTE FINDING. 2. HEPATIC STEATOSIS. 3. POSSIBLE CHOLELITHIASIS. 4. SMALL BUBBLES OF AIR WITHIN THE URINARY BLADDER. RECOMMEND CLINICAL CORRELATION. 4. 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 5. STATUS POST HYSTERECTOMY. ED physician has reviewed this radiology report. The patients sodium was 121 L. I reviewed her past visits, which showed a history of hyponatremia, and made sure to give her IV fluids. She is feeling much better now. I also discussed her CT results, including the adrenal adenoma and possible gallstones, and she agreed to follow up with her doctor about these results. In the ED course the patient was given Metoclopramide, Magnesium Sulfate, Morphine, and IV fluids. Patient will be discharged with follow up from Dr. Boyd. - Diagnoses Provider Diagnoses: Gastroenteritis Discharge - Sign-Out/Discharge Documenting (check all that apply): Patient Departure - discharge Patient Received Moderate/Deep Sedation with Procedure: No - Discharge Plan Condition: Stable Disposition: HOME Patient Education Materials: Dehydration (ED), Hyponatremia (ED), Gastroenteritis (ED) Print Language: PASHTO Referrals: Austyn Boyd MD [Primary Care Provider] - 3 Days Additional Instructions: Follow up with Dr. Boyd in 1-3 days. RETURN TO THE EMERGENCY DEPARTMENT FOR CHANGING OR WORSENING SYMPTOMS. - Billing Disposition and Condition Condition: STABLE Disposition: Home - Attestation Statements Document Initiated by Scribe: Yes Documenting Scribe: Kiran Akins Provider For Whom Scribe is Documenting (Include Credential): Joe Montero MD Scribe Attestation: Kiran Mason, scribed for Joe Montero MD on 12/22/18 at 1502. Scribe Documentation Reviewed: Yes Provider Attestation: The documentation as recorded by the Kiran skinner accurately reflects the service I personally performed and the decisions made by Joe coto MD Status of Scribe Document: Viewed
[2018-12-22] MEDS ORDERED: Morphine 4 MG/ML VIAL (1 ml) 4 MG/ML VIAL IV ONE (08:57)
[2018-12-22 10:07] LABS: ABS Basophils 0 10^3/ul (0-0.2); ABS Eosinophils 0 10^3/ul (0-0.6); ABS Lymphocytes 1.2 10^3/ul (1.0-4.8); ABS Monocytes 0.4 10^3/ul (0-0.8); ABS Neutrophils 8.7 10^3/ul (1.5-7.7); ABS Nucleated RBC 0 10^3/ul; Eosinophil % 0.2 %; Hematocrit 38 % (33-41); Hemoglobin 12.6 g/dL (12.0-16.0); Lymphocyte % 11.2 %; Mean Corpuscular HGB Conc 33 g/dL (31-36); Mean Corpuscular Hemoglobin 27 pg (27-31); Mean Corpuscular Volume 82 fL (80-97); Mean Platelet Volume 7.6 fL (7.4-10.4); Nucleated Red Blood Cells % 0; Platelet Count 415 10^3/uL (150-450); Red Blood Count 4.66 10^6 /uL (3.70-4.87); Red Cell Distribution Width 14 % (10.5-15); White Blood Count 10.3 10^3/uL (3.5-10.8)
[2018-12-22 10:15] LABS: Albumin 4.5 g/dL (3.2-5.2); Albumin/Globulin Ratio 1.6 (1-3); BUN/Creatinine Ratio 18.5 (8-20); C Reactive Protein 3.04 mg/L (<8.01); Calcium 9.4 mg/dL (8.6-10.3); EGFR African American 133.2 (>60); EGFR Non-African American 110.1 (>60); Globulin 2.8 g/dL (2-4); Magnesium 1.4 mg/dL (1.9-2.7); Potassium 4.1 mmol/L (3.5-5.0); Total Bilirubin 0.7 mg/dL (0.2-1.0); Total Protein 7.3 g/dL (6.4-8.9)
[2018-12-22 11:02] LABS: Urine Appearance Clear; Urine Bacteria Absent (Absent); Urine Bilirubin Negative (Negative); Urine Blood 1+ (Negative); Urine Color Straw; Urine Glucose 3+(>=500 mg/dL) (Negative); Urine Ketones 1+ (Negative); Urine Nitrite Negative (Negative); Urine Protein 2+(100 mg/dL) (Negative); Urine Red Blood Cell Trace(0-2/hpf) (Absent); Urine Specific Gravity 1.012 (1.010-1.030); Urine Squamous Epithelial Cell Present (Absent); Urine Urobilinogen Negative (Negative); Urine White Blood Cell Trace(0-5/hpf) (Absent)
[2018-12-22] MEDS ORDERED: Magnesium Sulfate IV* 0.5 GM/ML 2 ML VIAL (1 GM) IVPB ONE (11:02)
[2018-12-22] MEDS ORDERED: Magnesium Sulfate 2 GM IV* 2 GM/50 ML BAG ONE (11:18)
[2018-12-22] MEDS ORDERED: Magnesium Sulfate 2 GM IV (Premix) IVPB ONE (11:30)
[2018-12-22 13:22] VITALS: BP 158/74
--- NOTE | 2018-12-25 06:25 | PN ---
Progress Note - Progress Note Date of Service: 12/25/18 Note: patient urine culture E coli >100,000. macrobid 100mg [id number] sent to pharmacy. spoke with patient about results.
== END 2018-12-22 13:21 | disposition home or self-care (01) ==
LOC: ED 08:12
DX: K52.9 Noninfective gastroenteritis and colitis, unspecified (principal); K76.0 Fatty (change of) liver, not elsewhere classified; E27.9 Disorder of adrenal gland, unspecified; I10 Essential (primary) hypertension; E11.9 Type 2 diabetes mellitus without complications; K21.9 Gastro-esophageal reflux disease without esophagitis; K25.9 Gastric ulcer, unspecified as acute or chronic, without hemorrhage or perforation; K55.9 Vascular disorder of intestine, unspecified; Z88.5 Allergy status to narcotic agent; Z88.2 Allergy status to sulfonamides; Z88.8 Allergy status to other drugs, medicaments and biological substances; Z88.3 Allergy status to other anti-infective agents; Z88.6 Allergy status to analgesic agent; Z91.041 Radiographic dye allergy status; Z91.040 Latex allergy status
CPT/HCPCS: 36415; 74176; 80053; 81003; 81015; 82140; 82150; 83605; 83630; 83690; 83735; 85025; 85730; 86140; 87040; 87045; 87046; 87077; 87086; 87186; 87493; 87899; 96361; 96365; 96375; 99283; J2270; J2765; J3475

== ENCOUNTER 2018-12-23 00:59 | Observation (INO) | payer BC ==
[2018-12-23] MEDS ORDERED: NS 0.9% 1000 ML** 1,000 ML IV ONE (01:30)
--- NOTE | 2018-12-23 01:40 | ED ---
Syncope/Near Syncope - HPI Summary HPI Summary: Patient is a 73 y/o F presenting to ED via ambulance with complaints of an episode of dizziness, near syncope, shaking and slurred speech within the past few hours. Patient had been [place] [facility] [place] which she has had for the past two days, was diagnosed with gastroenteritis and discharged to home at 1400 on this date. This evening, as patient was walking around her house getting ready for bed, she began to experience dizziness, shaking, and felt near syncopal. Patient's , who is present in the room, reports that the patient appeared to be "dragging her feet". reports that the patient had stated that she felt dizzy at this time. Patient grabbed her bed's railing, caught her and patient went to her knees. Patient had difficulty getting up, states that he had to help her into the bed. At this point, states that the patient began to produce slurred speech, stating that she seemed to be "mumbling" and describes her speech as "jumbled". This episode of slurred speech is reported to have lasted for around ten minutes. Patient reports no previous episodes of Sx, notes that she remembers this entire incident. No Hx of afib is reported. Patient is on lisinopril. On triage, associated severity is rated 5/10. Nothing is noted to aggravate/alleviate Sx. Home medications and allergies are reviewed. - History Of Current Complaint Chief Complaint: EDSyncope Hx Obtained From: Patient, Family/Media Intern Onset/Duration: Lasting Minutes - slurred speech episode lasted on and off for around ten minutes Timing: Intermittent Episode Lasting - slurred speech episode lasted on and off for around ten minutes Context: Witnessed - was present in the room Activity At Onset: Other - standing Associated Head Trauma: No Alleviating Factor(s): Nothing Associated Signs And Symptoms: Dizzy, Other - shaking, slurred speech - Allergies/Home Medications Allergies/Adverse Reactions: Allergies Allergy/AdvReac Type Severity Reaction Status Date / Time ciprofloxacin Allergy Muscle Ache Verified 12/22/18 08:29 Iodinated Contrast- Oral and Allergy Rash Verified 12/22/18 08:29 IV Dye latex Allergy Rash Verified 12/22/18 08:30 Sulfa (Sulfonamide Allergy Rash Verified 12/22/18 08:29 Antibiotics) amoxicillin AdvReac GI Upset Verified 12/22/18 08:29 cephalexin AdvReac GI Upset Verified 12/22/18 08:29 clarithromycin AdvReac GI Upset Verified 12/22/18 08:29 clavulanic acid AdvReac GI Upset Verified 12/22/18 08:29 [From Augmentin] codeine AdvReac GI Upset Verified 12/22/18 08:29 ibuprofen AdvReac Hx of Verified 12/22/18 08:29 ulcers levofloxacin [From Levaquin] AdvReac GI Upset Verified 12/22/18 08:29 oxycodone AdvReac GI Upset Verified 12/22/18 08:29 prednisone AdvReac Shakes Verified 12/22/18 08:29 ENVIRONMENT/SEASONAL Allergy ITCHY Uncoded 12/22/18 08:29 WATERY EYES PMH/Surg Hx/FS Hx/Imm Hx Endocrine/Hematology History: Reports: Hx Blood Transfusions, Hx Diabetes - TYPE II Denies: Hx Anticoagulant Therapy, Hx Blood Disorders, Hx Bone Marrow Disease , Hx Systemic Lupus Erythematosus, Hx Sickle Cell Disease, Hx Thyroid Disease, Hx Anemia, Hx Unexplained Bleeding Cardiovascular History: Reports: Hx Hypertension Denies: Hx Aneurysm, Hx Angina, Hx Angioplasty, Hx Auto Implanted Cardiovert Defib, Hx Cardiac Arrest, Hx Cardiomegaly, Hx Congenital Heart Disease, Hx Congestive Heart Failure, Hx Coronary Artery Disease, Hx Deep Vein Thrombosis, Hx Embolism, Hx Hypotension, Hx Pacemaker/ICD, Hx Peripheral Vascular Disease, Hx Rheumatic Fever, Hx Syncope, Other Cardiovascular Problems/Disorders Respiratory History: Reports: Other Respiratory Problems/Disorders - SINUS INFECTION Denies: Hx Asthma, Hx Chronic Obstructive Pulmonary Disease (COPD) GI History: Reports: Hx Gastroesophageal Reflux Disease, Hx Gastrointestinal Bleed, Hx Irritable Bowel, Hx Ulcer - gastric ulcer, Other GI Disorders - ISCHEMIC COLITIS Denies: Hx Cirrhosis, Hx Crohn's Disease, Hx Diverticulosis, Hx Gall Bladder Disease, Hx Hiatal Hernia, Hx Jaundice, Hx Obstructive Bowel, Hx Ileostomy, Hx Pyloric Stenosis History: Denies: Hx Renal Disease, Other Problems/Disorders - DENIES Musculoskeletal History: Reports: Hx Arthritis - shoulders, Hx Orthopedic Injury - left hip fracture Denies: Hx Back Problems, Hx Bursitis, Hx Congenital Bone Abnormalities, Hx Fibromyalgia, Hx Gout, Hx Osteoporosis, Hx Scoliosis, Hx Tendonitis, Other Musculoskeletal History Sensory History: Reports: Hx Cataracts - surgery 11/23/15, Hx Contacts or Glasses - awaiting new prescription, Hx Glaucoma, Hx Vision Problem Denies: Hx Eye Injury, Hx Eye Prosthesis, Hx Legally Blind, Hx Macular Degeneration, Hx Deafness, Hx Hearing Aid, Hx Hearing Problem, Other Sensory Impairments Opthamlomology History: Reports: Hx Cataracts - surgery 11/23/15, Hx Contacts or Glasses - awaiting new prescription, Hx Glaucoma, Hx Vision Problem Denies: Hx Eye Injury, Hx Eye Prosthesis, Hx Legally Blind, Hx Macular Degeneration, Other Sensory Impairments Neurological History: Reports: Hx Headaches - chronic, Hx Nerve Disease - left leg DUE TO SURGERY Denies: Hx Dementia, Hx Developmental Delay, Hx Migraine, Hx Seizures, Hx Spinal Cord Injury, Hx Transient Ischemic Attacks (TIA), Other Neuro Impairments /Disorders Psychiatric History: Denies: Hx Anxiety - ON MED FOR RODRIGUEZ, Hx Panic Disorder, Hx Substance Abuse - Cancer History Cancer Type, Location and Year: bleeding ulcer, colitis Hx Chemotherapy: No - Surgical History Surgery Procedure, Year, and Place: Hysterectomy-Complete 1979. Sinus surgery. 06/30/15 L HIP REPAIR WITH HARDWARE. BILATERAL CATARACTS/GLAUCOMA. LAZER SURGERY ON EYES Hx Anesthesia Reactions: No Infectious Disease History: No Infectious Disease History: Reports: Hx of Known/Suspected MRSA, Hx Shingles, History Other Infectious Disease - gerardia Denies: Hx Clostridium Difficile - R/o C.diff, Hx Hepatitis, Hx Human Immunodeficiency Virus (HIV), Hx Tuberculosis, Hx Known/Suspected VRE, Hx Known/ Suspected VRSA, Traveled Outside the [place] in Last 30 Days - Family History Known Family History: Positive: Cardiac Disease - Social History Alcohol Use: Rare Hx Substance Use: No Substance Use Type: Reports: None Hx Tobacco Use: No Smoking Status (MU): Never Smoked Tobacco Review of Systems Constitutional: Other - POSITIVE - SHAKING Neurological: Other - POSITIVE - DIZZINESS Positive: Syncope - NEAR , Slurred Speech All Other Systems Reviewed And Are Negative: Yes Physical Exam - Summary Physical Exam Summary: VITAL SIGNS: Reviewed. GENERAL: Patient is a well-developed and nourished female who is lying comfortable in the stretcher. Patient is not in any acute respiratory distress. HEAD AND FACE: No signs of trauma. No ecchymosis, hematomas or skull depressions. No sinus tenderness. EYES: PERRLA, EOMI x 2, No injected conjunctiva, no nystagmus. EARS: Hearing grossly intact. Ear canals and tympanic membranes are within normal limits. MOUTH: Oropharynx within normal limits. NECK: Supple, trachea is midline, no adenopathy, no JVD, no carotid bruit, no c- spine tenderness, neck with full ROM. CHEST: Symmetric, no tenderness at palpation LUNGS: Clear to auscultation bilaterally. No wheezing or crackles. CVS: Irregular heartbeat, S1 and S2 present, no murmurs or gallops appreciated. ABDOMEN: Soft, non-tender. No signs of distention. No rebound no guarding, and no masses palpated. Bowel sounds are normal. EXTREMITIES: FROM in all major joints, no edema, no cyanosis or clubbing. NEURO: Alert and oriented x 3. No acute neurological deficits. Speech is normal and follows commands. SKIN: Dry and warm Triage Information Reviewed: Yes Vital Signs On Initial Exam: Initial Vitals Temp Pulse Resp BP Pulse Ox 98.5 F 92 18 153/68 95 12/23/18 01:03 12/23/18 01:03 12/23/18 01:03 12/23/18 01:03 12/23/18 01:03 Vital Signs Reviewed: Yes Diagnostics - Vital Signs Vital Signs Temp Pulse Resp BP Pulse Ox 12/23/18 01:03 98.5 F 92 18 153/68 95 - Laboratory Result Diagrams: 12/23/18 01:55 12/23/18 01:55 Lab Statement: Any lab studies that have been ordered have been reviewed, and results considered in the medical decision making process. - CT brain ct CT Interpretation Completed By: Radiologist Summary of CT Findings: IMPRESSION: 1. There is stable age-related diffuse cerebral volume loss and chronic. microvascular ischemic disease. 2. No acute intracranial pathology. This report was reviewed by Dr. Welsh. - EKG 0150 Cardiac Rate: NL - rate of 91 BPM EKG Rhythm: Sinus Rhythm Summary of EKG Findings: EKG showed sinus rhythm with rate of 91 BPM, first degree AV block, LVH. Re-Evaluation - Re-Evaluation First Eval Re-Evaluation Time: 02:58 Comment: Results of labs and tests were discussed with patient, she is agreeable with admission. Course/Dx Course Of Treatment: Patient is a 73 y/o F presenting to ED via ambulance with complaints of an episode of dizziness, near syncope, shaking and slurred speech within the past few hours. Patient had been seen [place] [facility] [place]/D which she has had for the past two days, was diagnosed with gastroenteritis and discharged to home at 1400 on this date. This evening, as patient was walking around her house getting ready for bed, she began to experience dizziness, shaking, and felt near syncopal. Patient's , who is present in the room, reports that the patient appeared to be "dragging her feet". reports that the patient had stated that she felt dizzy at this time. Patient grabbed her bed's railing, caught her and patient went to her knees. Patient had difficulty getting up, states that he had to help her into the bed. At this point, states that the patient began to produce slurred speech, stating that she seemed to be "mumbling" and describes her speech as "jumbled". This episode of slurred speech is reported to have lasted for around ten minutes. Patient reports no previous episodes of Sx, notes that she remembers this entire incident. No Hx of afib is reported. Patient is on lisinopril. On physical exam, patient is noted to have irregular heartbeat. EKG showed sinus rhythm with rate of 91 BPM, first degree AV block, LVH. BRAIN CT IMPRESSION: 1. There is stable age-related diffuse cerebral volume loss and chronic. microvascular ischemic disease. 2. No acute intracranial pathology. Labs showed WBC 11.2, RBC 4.95, Absolute neuts 9.2, sodium 127, chloride 91, anion gap 13, glucose 231, trop 0.06, TSH 1.73. Patient's case was discussed with Dr. Olguin at 0253, Dr. Olguin accepts patient for admission. Results of labs and tests were discussed with patient, she is agreeable with admission. - Diagnoses Provider Diagnoses: Near syncope, TIA (transient ischemic attack) - Physician Notifications Discussed Care of Patient With: Rhianna Olguin Time Discussed With Above Provider: 02:53 Instructed by Provider To: Other - Patient's case was discussed with Dr. Olguin at 0253, Dr. Olguin accepts patient for admission. Discharge - Sign-Out/Discharge Documenting (check all that apply): Patient Departure - admit Patient Received Moderate/Deep Sedation with Procedure: No - Discharge Plan Condition: Good Disposition: ADMITTED TO [facility] - Billing Disposition and Condition Condition: GOOD Disposition: Admitted to [facility] - Attestation Statements Document Initiated by Darell: Yes Documenting Scribe: STEVIE EDUARDO Provider For Whom Hae is Documenting (Include Credential): MARKIE WELSH MD Scribe Attestation: STEVIE Mason, scribed for MARKIE WELSH MD on 12/23/18 at 0625. Scribe Documentation Reviewed: Yes Provider Attestation: The documentation as recorded by the STEVIE skinner accurately reflects the service I personally performed and the decisions made by me, MARKIE WELSH MD Status of Scribe Document: Viewed
[2018-12-23 02:12] LABS: ABS Basophils 0 10^3/ul (0-0.2); ABS Eosinophils 0 10^3/ul (0-0.6); ABS Lymphocytes 1.2 10^3/ul (1.0-4.8); ABS Monocytes 0.8 10^3/ul (0-0.8); ABS Neutrophils 9.2 10^3/ul (1.5-7.7); ABS Nucleated RBC 0 10^3/ul; Eosinophil % 0.2 %; Hematocrit 41 % (33-41); Hemoglobin 13.4 g/dL (12.0-16.0); Lymphocyte % 10.5 %; Mean Corpuscular HGB Conc 33 g/dL (31-36); Mean Corpuscular Hemoglobin 27 pg (27-31); Mean Corpuscular Volume 82 fL (80-97); Mean Platelet Volume 7.5 fL (7.4-10.4); Nucleated Red Blood Cells % 0; Platelet Count 428 10^3/uL (150-450); Red Blood Count 4.95 10^6 /uL (3.70-4.87); Red Cell Distribution Width 15 % (10.5-15); White Blood Count 11.2 10^3/uL (3.5-10.8)
[2018-12-23 02:24] LABS: Activated Partial Thrombo Time 31.9 seconds (26.0-36.3); Albumin 4.8 g/dL (3.2-5.2); Anion Gap 13 mmol/L (2-11); CO2 Carbon Dioxide 23 mmol/L (22-32); Chloride 91 mmol/L (101-111); INR 0.88 (0.77-1.02); Potassium 3.9 mmol/L (3.5-5.0); Sodium 127 mmol/L (135-145)
[2018-12-23 02:30] LABS: ALT 10 U/L (7-52); AST 19 U/L (13-39); Albumin/Globulin Ratio 1.7 (1-3); Alkaline Phosphatase 101 U/L (34-104); BUN/Creatinine Ratio 14.1 (8-20); Blood Urea Nitrogen 11 mg/dL (6-24); EGFR African American 87.1 (>60); Globulin 2.9 g/dL (2-4); Glucose 231 mg/dL (70-100); Total Protein 7.7 g/dL (6.4-8.9)
[2018-12-23 02:36] LABS: Troponin I 0.06 ng/mL (<0.04)
[2018-12-23 02:42] LABS: TSH (Thyroid Stimulating Horm) 1.73 mcIU/mL (0.34-5.60)
[2018-12-23] MEDS ORDERED: Aspirin TAB* 325 MG PO ONE (02:53)
[2018-12-23] MEDS ORDERED: Aspirin 81 mg CHEW TAB* 81 MG TAB.CHEW ONE (03:02)
[2018-12-23] MEDS ORDERED: Aspirin 81 mg CHEW TAB* 81 MG TAB.CHEW PO ONE (03:18)
[2018-12-23] MEDS ORDERED: traMADol TAB* 50 MG PO PRN (04:09)
[2018-12-23] MEDS ORDERED: Benzonatate CAP* 100 MG PO PRN (04:09)
[2018-12-23] MEDS ORDERED: Dextrose 50% Syringe 50 ML* 25 GM/50 ML SYRINGE IV PUSH PRN (04:13)
[2018-12-23] MEDS ORDERED: NS 0.9% 1000 ML** 1,000 ML IV SCH (04:15)
[2018-12-23] MEDS ORDERED: Ondansetron INJ* 2 MG/ML VIAL IV PRN (04:15)
[2018-12-23] MEDS ORDERED: Acetaminophen TAB* 325 MG PO PRN (04:15)
[2018-12-23 04:58] LABS: Cholesterol 149 mg/dL; HDL Cholesterol 65.7 mg/dL; LDL Cholesterol 71 mg/dL; Triglycerides 62 mg/dL
[2018-12-23 05:03] LABS: Troponin I 0.06 ng/mL (<0.04)
[2018-12-23 07:54] LABS: Troponin I 0.08 ng/mL (<0.04)
[2018-12-23] MEDS: Gabapentin CAP(*) 300 MG PO SCH ×3 (08:26→21:36)
[2018-12-23] MEDS: Lisinopril TAB* 10 MG PO SCH ×2 (08:26→21:35)
[2018-12-23] MEDS: Insulin LISPRO* 1 UNITS UNIT SUBCUT SCH ×3 (08:26→16:29)
[2018-12-23] MEDS: Enoxaparin(*) 40 MG/0.4 ML SYR SUBCUT SCH (08:26)
[2018-12-23] MEDS: Timolol 0.25% OPHTH.SOLN* BTL BOTH EYES SCH ×2 (08:28→21:36)
[2018-12-23] MEDS ORDERED: metFORMIN* 500 MG TAB PO SCH ×2 (09:00→18:00)
[2018-12-23] MEDS ORDERED: Sertraline* 100 MG TAB PO SCH ×2 (09:00→21:00)
[2018-12-23] MEDS: glyBURIDE TAB* 2.5 MG PO SCH (09:08)
[2018-12-23 11:13] LABS: Troponin I 0.05 ng/mL (<0.04)
--- NOTE | 2018-12-23 11:25 | HP ---
HISTORY AND PHYSICAL: DATE OF ADMISSION: 12/23/18 PRIMARY CARE PROVIDER: Dr. Boyd. NEIGHBORHOOD COORDINATOR: Joaquín Son, the patient's . SOURCE OF INFORMATION: HPI is obtained from the patient, who is an excellent historian. CODE STATUS: Full. CHIEF COMPLAINT: Syncopal event. HISTORY OF PRESENT ILLNESS: 73-year-old female with a past medical history of chronic headaches who follows with Neurology, mmr-ovhefcz-mnnrbazoe diabetes, and hypertension, who has presented to the emergency room twice in 2 days, the first time for nausea, vomiting, and diarrhea which she has had for 3 to 4 days and thought to be a gastrointestinal virus that was improving with antinausea medication and a bland diet, but then returned to the emergency room today for a syncopal event at home with a brief period of slurred speech. The patient reports that she was doing well at home after being discharged from the emergency room yesterday from her GI illness, was keeping up with her fluid intake, drinking Gatorade and eating a bland diet, and just before she went to bed, when she stood up from her chair to walk across to her bedroom, the patient felt acutely hot, faint, had tunnel vision, and felt the need to sit down. Her witnessed the entire event and helped her to the floor. He said that she started shuffling her feet and felt that she looked like she was about to pass out. She did not lose consciousness but reports she did have some slurred speech at that time that cleared on its own as the patient felt better after about 5 or 10 minutes and was able to get up. They denied bladder or bowel loss. No focal weakness and no residual deficits. The patient does recall the beginning, middle, and end of the entire event with no documented loss of consciousness, and she denied having active chest pain, shortness of breath, or other symptoms other than her baseline nausea and vomiting and diarrhea, which has actually been improving. Because of her 's concern, they called the ambulance and she was brought to the emergency room to be further evaluated. In the emergency room, blood pressure was 144/58, heart rate was 93, temperature was 98.8, oxygen saturation is 94% on room air. Labs showed mild leukocytosis and hyponatremia to 127. Troponin was elevated at 0.06. Imaging was done, which include a CT head that showed no acute intracranial pathology. EKG was done, which showed sinus rhythm with left ventricular hypertrophy with no active ischemia. CT abdomen and pelvis done from first emergency room visit showed no acute pathology. She received 325 mg of aspirin and the hospitalist team was asked to evaluate the patient given her elevated troponin for rule out ACS and to consider TIA versus syncope. She will be admitted under observation status. PAST MEDICAL HISTORY: Zaq-jnbtgnb-eekgzjsxn diabetes; chronic headaches, followed by Neurology; GERD; hypertension. PAST SURGICAL HISTORY: Status post left hemiarthroplasty and cataract. MEDICATIONS: She takes: 1. Cough syrup 30 mg p.o. daily. 2. Fluticasone 2 sprays both nares daily. 3. Hyoscyamine 0.125 mg p.o. q.6 hours. 4. Lansoprazole 30 mg p.o. q.a.m. 5. Sertraline 100 mg 1 tab p.o. q.h.s. 6. Tramadol 50 mg p.o. q.h.s. and p.o. q.6 hours p.r.n. for pain. 7. Benzonatate 100 mg p.o. t.i.d. 8. Gabapentin 300 p.o. t.i.d. 9. Glyburide 1.25 mg p.o. q.a.m. 10. Lisinopril 10 mg p.o. b.i.d. 11. Metformin 500 mg p.o. t.i.d. 12. Timolol 1 drop both eyes b.i.d. ALLERGIES: To CIPROFLOXACIN, CONTRAST, LATEX, AMOXICILLIN, KEFLEX, CLARITHROMYCIN, CODEINE, IBUPROFEN, LEVAQUIN, OXYCODONE, PREDNISONE, and SEASONAL ALLERGIES. FAMILY HISTORY: Mother with uterine cancer. Father is with a history of diabetes and heart disease. SOCIAL HISTORY: Tobacco: She is a lifetime nonuser. Alcohol: Lifetime nonuser. Illicits: Never. Lives at home with her . 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 REVIEW OF SYSTEMS: Constitutional: She denies fevers or chills. Does endorse fatigue. Eyes: Denies vision changes. Does endorse chronic mild headache but not off her baseline. ENT: Denies sore throat. Cardiovascular: Denies chest pain, palpitations, or orthopnea. Respiratory: Denies shortness of breath, cough, or pleuritic chest pain. GI: Does endorse 3 to 4 days of nausea, vomiting, and diarrhea that has been steadily improving without abdominal pain. : Denies dysuria or hematuria. Musculoskeletal: Denies myalgias or arthralgias. Skin: Denies rashes or lesions. Neurologic: Denies focal weakness or numbness outside of the setting of her 5-minute syncopal event. Psychiatric: Denies depression or anxiety. Endocrine: Denies polyuria or polydipsia. Heme: Denies bruising, bleeding, lymphadenopathy. PHYSICAL EXAMINATION GENERAL: This is a very well-appearing pleasant woman in no acute distress, sitting up in bed. VITAL SIGNS: At the time of physical exam, 98.5 temperature, pulse rate 92, blood pressure 152/68, oxygen saturation 95% on room air. HEENT: Extraocular muscles are intact. Pupils are equal and reactive. Mucous membranes are mildly dry. NECK: Supple with no supraclavicular or cervical lymphadenopathy. RESPIRATORY: She is clear to auscultation bilaterally. CARDIAC: Regular rate and rhythm with no murmurs, rubs or gallops. ABDOMEN: Belly is soft, nontender, and nondistended with normoactive bowel sounds. MUSCULOSKELETAL: She moves all 4 limbs spontaneously. She has 2+ pulses in bilateral lower extremities, DP, and no edema. NEUROLOGIC: The patient is A and O x4. Cranial nerves II through XII are intact. She has 5/5 strength in both upper and lower extremities. Finger-to- nose testing is intact. Speech is fluent. SKIN: With no rashes or lesions. DIAGNOSTIC STUDIES/LAB DATA: CBC shows a white blood cell count of 11, hemoglobin of 13, hematocrit of 41, platelets of 428. CMP shows sodium 127, potassium 3.9, chloride 91, anion gap 7, creatinine 0.78, glucose 231. Alk phos 101, ALT 10, AST 19. Troponin is elevated at 0.06. TSH 1.73. Imaging included an EKG, which showed sinus rhythm with left ventricular hypertrophy and no active ischemia. Head CT, which showed no acute intracranial pathology. Imaging, labs, and EKG reviewed by myself. ASSESSMENT AND PLAN: 73-year-old female with chronic headaches, followed by Neurology; non-insulin- dependent diabetes; hypertension, who presented to the emergency room twice in 2 days once for nausea, vomiting, diarrhea presumed to be a viral gastroenteritis, and then this evening for witnessed vasovagal event without full syncope and concurrent slurred speech. The differential for this includes true transient ischemic attack, although the patient does report prodrome, which makes this less likely. Furthermore, she has been dehydrated in the setting of viral gastroenteritis. She does have elevated troponins, but without active chest pain, this is most likely secondary to demand ischemia. We will admit for rule out acute coronary syndrome and continue to monitor for further neurologic symptoms. 1. Elevated troponin. We will trend troponins 3 times while on telemetry. She last had an echo in 2016 with an ejection fraction of 55% to 60%. She has no active chest pain, and again this is all possibly type 2 in the setting of syncopal or vasovagal event. 2. Syncopal event without true loss of consciousness most consistent with vasovagal, possibly transient ischemic attack given slurred speech. She does have an ABCD2 score of 5. Her CT head was negative. She is status post aspirin 325. PT/OT is in for tomorrow. She did have an echo in 2016 with 55% to 60%, consider consulting Neurology tomorrow, an MRI is appropriate. 3. Nausea, vomiting, and diarrhea. This is presumed to be viral gastroenteritis. Supportive care. Continue IV fluids at 100 cc per hour for additional 1 L. 4. Hyponatremia. This is all presumed to be secondary to hypovolemia, improved since initial ER visit yesterday. Continue on fluids. 5. Hypertension. Continue home lisinopril. 6. Yxc-dafjiuv-kwmtymmio diabetes. Pvbob-ko-uhye glucose. Continue home meds. 7. Chronic headaches. Continue tramadol, Tylenol, and sertraline as needed. 8. DVT prophylaxis. The patient will be placed on Lovenox for DVT prophylaxis. 9. Diet is carbohydrate consistent diet as tolerated. 10. Code status is full. 11. Disposition. The patient is stable for admission to telemetry unit for observation. Anticipate discharge in the next 24 to 48 hours if symptoms cleared and Neurology feels appropriate. TIME SPENT: Forty minutes was spent on planning of this admission with over half of that spent directly at the bedside with the patient providing direct patient care. Plan of care, assessment, and data collected to this point were shared with the patient and she agrees with the plan. [id number]/[facility] #: [id number] DARCY
--- NOTE | 2018-12-23 16:30 | PN ---
Subjective Date of Service: 12/23/18 Interval History: Patient feels better today, have rest and rehydration. Yesterday was in ER, sent home w/ likely viral gastroenteritis vs gastritis due to recent doxycycline use. Then later in evening had sweating, weakness, near-syncope, mumbling speech, bilateral leg weakness. Was admitted w/ pre-syncope, possible vagal episode vs TIA. No current symptoms Family History: Unchanged from Admission Social History: Unchanged from Admission Past Medical History: Unchanged from Admission Objective Active Medications: Acetaminophen (Tylenol Tab*) 650 mg PO Q4H PRN PRN Reason: FEVER/PAIN Benzonatate (Tessalon Cap*) 100 mg PO TID PRN PRN Reason: COUGH Dextrose (D50w Syringe 50 Ml*) 12.5 gm IV PUSH .FOR FS < 60 - SS PRN PRN Reason: FS < 60 Enoxaparin Sodium (Lovenox(*)) 40 mg SUBCUT Q24H [facility] Last Admin: 12/23/18 08:26 Dose: 40 mg Gabapentin (Neurontin Cap(*)) 300 mg PO TID [facility] Last Admin: 12/23/18 13:13 Dose: 300 mg Glyburide (Diabeta Tab*) 1.25 mg PO QAM [facility] Last Admin: 12/23/18 09:08 Dose: 1.25 mg Insulin Human Lispro (Humalog*) 0 units SUBCUT [facility]; Protocol Last Admin: 12/23/18 11:51 Dose: 1 units Lisinopril (Prinivil Tab*) 10 mg PO BID [facility] Last Admin: 12/23/18 08:26 Dose: 10 mg Metformin HCl (Glucophage*) 500 mg PO QPM [facility] Ondansetron HCl (Zofran Inj*) 4 mg IV Q6H PRN PRN Reason: NAUSEA Last Admin: 12/23/18 11:51 Dose: 4 mg Sertraline HCl (Zoloft*) 100 mg PO BEDTIME [facility] Timolol Maleate (Timoptic Ophth.Soln 0.25%) 1 drop BOTH EYES BID [facility] Last Admin: 12/23/18 08:28 Dose: 1 drop Tramadol HCl (Ultram*) 50 mg PO Q6HR PRN PRN Reason: PAIN Vital Signs - 8 hr 12/23/18 12/23/18 12/23/18 08:26 11:26 13:13 Temperature 37.0 C Pulse Rate 81 Respiratory 18 16 18 Rate Blood Pressure 142/61 (mmHg) O2 Sat by Pulse 99 Oximetry 12/23/18 12/23/18 15:39 15:50 Temperature 36.4 C 36.4 C Pulse Rate 76 76 Respiratory 16 16 Rate Blood Pressure 180/55 180/55 (mmHg) O2 Sat by Pulse 99 99 Oximetry Oxygen Devices in Use Now: None Appearance: alert, no distress Eyes: No Scleral Icterus Ears/Nose/Mouth/Throat: Clear Oropharnyx Neck: NL Appearance and Movements; NL JVP Respiratory: Symmetrical Chest Expansion and Respiratory Effort, Clear to Auscultation Cardiovascular: NL Sounds; No Murmurs; No JVD, RRR Abdominal: NL Sounds; No Tenderness; No Distention Neurological: Alert and Oriented x 3, NL Muscle Strength and Tone Lines/Tubes/Other Access: Clean, Dry and Intact Peripheral IV Nutrition: Taking PO's Result Diagrams: 12/23/18 01:55 12/23/18 01:55 Additional Lab and Data: Laboratory Tests 12/23/18 12/23/18 12/23/18 04:34 07:18 10:23 Troponin I 0.06 H* 0.08 H* 0.05 H* Assess/Plan/Problems-Billing Assessment: 73 year old admitted w/ near-syncope, differential includes TIA, vasovagal faint - Patient Problems (1) Pre-syncope Current Visit: Yes Status: Acute Priority: High Comment: -differential as above -Neurology consult appreciated -MRI pending this evening, possible small stroke -continue aspirin 81 qd (2) Hyponatremia with extracellular fluid depletion Current Visit: Yes Status: Acute Priority: Medium Code(s): E87.1 - HYPO- OSMOLALITY AND HYPONATREMIA SNOMED Code(s): 58765616 Comment: -sodium moderately low -appears was dehydrated on admission -IV NS is correct treatment, will recheck electrolytes in AM (3) DVT prophylaxis Current Visit: No Status: Acute Priority: Low Code(s): HIS4660 - SNOMED Code(s): 265436284 Comment: -SC lovenox (4) Type 2 diabetes mellitus Current Visit: Yes Status: Acute Priority: Medium Comment: -no hypoglycemia noted on admission -blood sugars adequately controlled -continue outpatient medications, FSBG Status and Disposition: OBV, likely discharge tomorrow
[2018-12-23] MEDS: amLODIPine TAB* 5 MG PO SCH (16:41)
--- NOTE | 2018-12-23 16:46 | CONS ---
NEUROLOGY CONSULTATION: DATE OF CONSULT: 12/23/18 LOCATION: She is an inpatient in [facility]. REFERRING PROVIDER: Rhianna Olguin MD CHIEF COMPLAINT: Weakness, slurred speech. HISTORY OF PRESENT ILLNESS: Terese Son is a 73-year-old woman who had been suffering from a gastroenteritis for several days prior to admission. She had not had anything to eat, but just fluids for several days. Yesterday, with persistent nausea and vomiting and diarrhea, she presented to the emergency room. She was treated with antiemetics and fluids and sent home. Last evening , she felt very weak. She started to go to bed and her , who is present this afternoon, states that she was shuffling more than usual. She began to feel very weak and dizzy. She was sweating profusely. She felt like she was going to pass out. Her said that her speech was slurred. This went on for perhaps a minute or less from his estimation, less than 5 according to Terese. She ended up on her knees in front of their bed. She was not able to get up by herself to get into bed. Her finally got her into bed and called an ambulance and she was brought back to the emergency room and admitted. Currently, she feels a little weak, but other than that, better. She had not eaten for days and ate something earlier and so has a little bit of nausea. There is no history of epilepsy or stroke in the past. She has had chronic migraines for which she follows with Dr. Be. It sounds as though she might have had some faints in the past, but she could not come up with any specific instances. PAST MEDICAL HISTORY: Notable for hypertension, chronic migraines, type 2 diabetes, gastroesophageal reflux. MEDICATIONS: At home consist of: 1. Lansoprazole 30 mg p.o. q.a.m. 2. Sertraline 100 mg q.h.s. 3. Tramadol 50 mg q.6 hours p.r.n. pain. 4. Gabapentin 300 mg p.o. t.i.d. 5. Lisinopril 10 mg p.o. b.i.d. 6. Glyburide 1.25 mg p.o. q.a.m. 7. Metformin 500 mg p.o. t.i.d. 8. Timolol eyedrops. ALLERGIES: She has multiple drug allergies. Specifically, CIPROFLOXACIN, AMOXICILLIN, KEFLEX, CLARITHROMYCIN, CODEINE, LEVAQUIN, IBUPROFEN, OXYCODONE, CONTRAST DYE. SOCIAL HISTORY: She lives with her . She does not smoke and does not drink alcohol. She is retired from the [employer]. PHYSICAL EXAMINATION: She is an elderly woman who appears her stated age. Most recent vital signs, temperature 98.6, blood pressure 142/61, heart rate 81 , respiratory rate is 16, oxygen saturation is 99% on room air. Skin is cool and dry. Lungs are clear. Heart is in a regular rhythm with a grade 2/6 early systolic murmur, left lower sternal border. Neurological Exam: Pupils react sluggishly from 3 down to about 2.5 mm. Eye movements are saccadic and she has some impersistence of gaze. Visual bedoya seem constricted bilaterally. Funduscopic exam reveals pale, sharp, optic discs bilaterally. Facial musculature is symmetric. Facial sensation to light touch is reported as less in the left side of the face than the right. Palate and tongue appear normal, there is no oral trauma. Speech is clear without dysarthria. Sensory exam in the limbs is notable for diminished light touch in the left hand relative to the right. Light touch is intact in the legs. Motor exam reveals relatively normal tone and strength for age. There is no drift of the limbs. Reflexes are trace in biceps and knees. Plantars are flexor. She is alert and oriented and a good historian with intact memory and fluent language. She has reasonably good attention, concentration, and adequate fund of knowledge. LABORATORY DATA/DIAGNOSTIC STUDIES: Laboratory data includes a CT of the brain , which I reviewed the images of as well as the report. It is interpreted as showing possible chronic ischemic changes, but otherwise normal. EKG reveals evidence for left ventricular hypertrophy. Other laboratory data notable for a CBC with a borderline elevated white blood cell count at 11.2 and otherwise a normal CBC. Chemistry is notable for a sodium of 127 this morning and it was 121 yesterday. Troponin upon presentation yesterday was 0.06 and peaked at 0.08 and is 0.05 this morning. A glucose in diamond setter apprentice hours was 231. The rest of the chemistry profile is unremarkable. She did have a mildly elevated ammonia at 59. IMPRESSION AND PLAN: Impression is that of a probable syncopal episode complicated by some dysarthria. However, given her sensory asymmetries on exam and elevated troponins, I would like to get an MRI scan of the brain to make sure she did not have an acute ischemic insult. If that is negative, then I do not think any further neurological evaluation would be warranted. I will follow her up until at least the MRI is complete. [id number]/[facility] #: [id number] DARCY
--- NOTE | 2018-12-23 17:02 | ECHO ---
Patient: ZBIGNIEW FITZPATRICK [facility] Rec#: [id number] : 1945 Date: 12/23/2018 Age: 73y Height: 163 cm / 64.2 in Weight: 65 kg / 143.3 lbs Sex: F BSA: 1.7 Room#: [facility] Admit Date#: 12/23/2018 Type: Inpatient Referring: CARMEN TIPTON L Reading: Ollie Morales DO Dowel Pointer: Mini Luna RDCS CC: Austyn Boyd MD CC: Dalton Tian MD Transthoracic Echocardiogram Indication: TIA BP: 174/67 HR: 72 Rhythm: NSR Findings History: DM,HTN,+ family hx.,dizziness,near syncope,slurred speech. Technical Comments: The study quality is good. Completed at 1542. Left Ventricle: The left ventricular chamber size is normal. Mild concentric left ventricular hypertrophy is observed.with moderate thicking of the anterior basal septum up to 1.75 cm The estimated ejection fraction is 60-65%. Abnormal left ventricular diastolic function is observed. The basal inferolateral, and mid inferolateral wall segments are hypokinetic (score 2). Overall wallmotion score index is 2.00 Left Atrium: The left atrial chamber size is normal. Right Ventricle: The right ventricular chamber size and systolic function are within normal limits. Right Atrium: The right atrial cavity size is normal. Aortic Valve: The aortic valve is trileaflet. There is no evidence of aortic valve thickening. There is no evidence of aortic regurgitation. There is no evidence of aortic stenosis. Mitral Valve: There is posterior mitral annular calcification. There is trace to mild mitral regurgitation. There is no evidence of mitral stenosis. Tricuspid Valve: The tricuspid valve leaflets are normal. There is trace tricuspid regurgitation. Unable to estimate the right ventricular systolic pressure. There is no tricuspid stenosis. Pulmonic Valve: The pulmonic valve appears normal. There is no evidence of pulmonic regurgitation. There is no pulmonic stenosis. Pericardium: There is no significant pericardial effusion. Aorta: The ascending aorta is not well visualized. There is no dilatation of the aortic arch. There is no dilation of the aortic root. Pulmonary Artery: The main pulmonary artery is not well visualized. Venous: The inferior vena cava appears normal in size. There is a greater than 50% respiratory change in the inferior vena cava dimension. Conclusions Mild concentric left ventricular hypertrophy is observed. The left ventricular chamber size is normal. Mild concentric left ventricular hypertrophy is observed Moderate thicking of the anterior basal septum The estimated ejection fraction is 60-65%. The basal inferolateral, and mid inferolateral wall segments are hypokinetic The left atrial chamber size is normal. The right ventricular chamber size and systolic function are within normal limits. No significant valvular abnormalities noted Compared to prior study from 12/2015, LV wall thickness not previously commented on, basal inferior/inferolateral wall appears hypokinetic on this study. Measurements Name Value Normal Range RVIDd (AP) 2D 2.6 cm (0.9 - 2.6) RVDdMajor (2D) 2.1 cm (2.2 - 4.4) RAd ISD 4CH 3.8 cm (3.4 - 4.9) RA (A4C)W 2.5 cm (2.9 - 4.6) IVSd (2D) 1.1 cm (0.6 - 1) LVPWd (2D) 1.1 cm (0.6 - 1) LVIDd (2D) 4.1 cm (3.6 - 5.4) LVIDs (2D) 2.9 cm - LV FS (2D) 29 % (25 - 45) Aortic Annulus 1.7 cm (1.4 - 2.6) Ao root diameter (2D) 2.8 cm (2.1 - 3.5) Aortic arch 2.2 cm (1.8 - 3.4) Descending Ao 1 cm - LA dimension (AP) 2D 3.3 cm (2.3 - 3.8) LAd ISD 4CH 4.1 cm (2.9 - 5.3) LA ISD 4CH W 4.1 cm (2.5 - 4.5) Name Value Normal Range MV E-wave Vmax 1 m/sec - MV deceleration time 172 msec - MV A-wave Vmax 1.5 m/sec - MV E:A ratio 0.6 ratio - LV septal e' Vmax 0.06 m/sec - LV lateral e' Vmax 0.07 m/sec - LV E:e' septal ratio 16.67 ratio - LV E:e' lateral ratio 14.28 ratio - Name Value Normal Range AV Vmax 1.5 m/sec - AV VTI 33.4 cm - AV peak gradient 9 mmHg - AV mean gradient 5 mmHg - LVOT Vmax 1.4 m/sec - LVOT VTI 32.8 cm - LVOT peak gradient 8 mmHg - LVOT mean gradient 4 mmHg - Name Value Normal Range MR Vmax 6.4 m/sec - MR VTI 211 cm - Name Value Normal Range IVC diameter 1.3 cm - Name Value Normal Range PV Vmax 1 m/sec - PV peak gradient 4 mmHg - Wallmotion BAS Not Seen BA Not Seen BAL Not Seen VERO Hypokinetic BI Not Seen BIS Not Seen MAS Not Seen MA Not Seen MAL Not Seen MIL Hypokinetic WI Not Seen MIS Not Seen Not Seen AA Not Seen AL Not Seen AI Not Seen APEX Not Seen
[2018-12-24 07:05] LABS: ABS Basophils 0 10^3/ul (0-0.2); ABS Eosinophils 0.2 10^3/ul (0-0.6); ABS Lymphocytes 2.1 10^3/ul (1.0-4.8); ABS Monocytes 0.6 10^3/ul (0-0.8); ABS Neutrophils 3.7 10^3/ul (1.5-7.7); ABS Nucleated RBC 0 10^3/ul; Eosinophil % 3.4 %; Hematocrit 32 % (33-41); Hemoglobin 10.6 g/dL (12.0-16.0); Mean Corpuscular HGB Conc 33 g/dL (31-36); Mean Corpuscular Hemoglobin 27 pg (27-31); Mean Corpuscular Volume 82 fL (80-97); Mean Platelet Volume 7.5 fL (7.4-10.4); Nucleated Red Blood Cells % 0; Platelet Count 334 10^3/uL (150-450); Red Blood Count 3.88 10^6 /uL (3.70-4.87); Red Cell Distribution Width 15 % (10.5-15); White Blood Count 6.6 10^3/uL (3.5-10.8)
[2018-12-24 07:31] LABS: BUN/Creatinine Ratio 16.7 (8-20); Calcium 8.8 mg/dL (8.6-10.3); EGFR African American 117.9 (>60); EGFR Non-African American 97.5 (>60); Magnesium 1.7 mg/dL (1.9-2.7); Potassium 3.5 mmol/L (3.5-5.0)
[2018-12-24] MEDS: amLODIPine TAB* 5 MG PO SCH (08:17)
[2018-12-24] MEDS: Gabapentin CAP(*) 300 MG PO SCH (08:18)
[2018-12-24 08:19] VITALS: BP 142/49
[2018-12-24] MEDS: glyBURIDE TAB* 2.5 MG PO SCH (08:20)
[2018-12-24] MEDS: Lisinopril TAB* 10 MG PO SCH (08:21)
[2018-12-24] MEDS: Insulin LISPRO* 1 UNITS UNIT SUBCUT SCH (08:22)
[2018-12-24] MEDS: Enoxaparin(*) 40 MG/0.4 ML SYR SUBCUT SCH (08:24)
[2018-12-24] MEDS: Timolol 0.25% OPHTH.SOLN* BTL BOTH EYES SCH (08:28)
[2018-12-24] MEDS ORDERED: Aspirin 81 mg CHEW TAB* 81 MG TAB.CHEW PO SCH (09:00)
--- NOTE | 2018-12-25 13:36 | DS ---
CC: Dr. Boyd DISCHARGE SUMMARY: DATE OF ADMISSION: 12/23/18 DATE OF DISCHARGE: 12/24/18 PRIMARY DIAGNOSIS: Presyncope due to vagal episode. SECONDARY DIAGNOSES: 1. Type 2 diabetes. 2. Chronic daily headaches. 3. Gastroesophageal reflux disease. 4. Hypertension. 5. Anxiety. 6. Glaucoma. 7. Dehydration due to recent gastroenteritis. 8. Hyponatremia. MEDICATIONS ON DISCHARGE: 1. Gabapentin 300 mg p.o. t.i.d. 2. Glyburide 1.25 mg p.o. q.a.m. 3. Hyoscyamine 0.25 mg p.o. q.6 hours p.r.n. cramps. 4. Lansoprazole 30 mg p.o. q.a.m. 5. Lisinopril 10 mg p.o. b.i.d. 6. Metformin 500 mg p.o. q.p.m. 7. Sertraline 100 mg p.o. q.p.m. 8. Timolol 0.25% 1 drop both eyes daily. 9. Acetaminophen 650 mg p.o. q.4 hours as needed. 10. Amlodipine 2.5 mg p.o. daily. 11. Aspirin 81 mg p.o. daily. 12. Fluticasone nasal spray 1 spray each nostril daily. 13. Tramadol 50 mg p.o. q.4 hours p.r.n. pain. HOSPITAL COURSE: A 73-year-old woman with a history of diabetes, presented with an episode of near s yncope that occurred at home. This was associated with some slurred speech and generalized weakness. She had actually been in the ER earlier in the last 24 hours prior to admission and was sent home w ith a diagnosis of gastroenteritis with treatment with fluid and antiemetics. When the patient was a dmitted, she initially had a head CT that did not show any infarct or bleeding. Because of slurred sp eech and possible focality of weakness, she was seen by Dr. Tian of Neurology. The patient's MRI of the brain showed mild age-related atrophy and chronic small vessel changes but no findings to naveen elate with the patient's presyncope or slurred speech. The patient also had an echocardiogram on that showed a normal left ventricular chamber size, ejection fraction of 60% to 65%. There is abnormal diastolic function and some hypokinetic wall segments inferiorly. There were no significant valvular findings. Laboratory testing during this hospital stay showed a troponin of 0.06. This fe ll to 0.05 after serial testing. Magnesium was 1.7. The initial sodium was 127, and this has improv ed to 133 with normal saline hydration. White count was initially 11.2 and this fell to 6.6 on the n ext day. Overall, the impression was that the patient has dehydration due to recent gastroenteritis as well as some vagal episodes that led her to have weakness and slurred speech and near syncope. DISPOSITION: Home with her . ACTIVITY: Should be as tolerated. CONDITION: Stable. STATUS: Observation patient. DIET: Should be diabetic diet. [id number] #: [id number]
== END 2018-12-24 10:23 | disposition home or self-care (01) ==
LOC: ED 00:59 → MEDTELE 04:06
PROVIDERS: ADMIT Internal Medicine; ATTEND Internal Medicine
DX: R55 Syncope and collapse (principal); R42 Dizziness and giddiness; R47.81 Slurred speech; E11.9 Type 2 diabetes mellitus without complications; R51 Headache; K21.9 Gastro-esophageal reflux disease without esophagitis; I10 Essential (primary) hypertension; F41.9 Anxiety disorder, unspecified; H40.9 Unspecified glaucoma; E86.0 Dehydration; K52.9 Noninfective gastroenteritis and colitis, unspecified; E87.1 Hypo-osmolality and hyponatremia; Z79.82 Long term (current) use of aspirin; R53.1 Weakness; Z88.0 Allergy status to penicillin; Z79.899 Other long term (current) drug therapy; Z88.2 Allergy status to sulfonamides; Z86.14 Personal history of Methicillin resistant Staphylococcus aureus infection
CPT/HCPCS: 36415; 70450; 70551; 80048; 80053; 80061; 83735; 83930; 84443; 84484; 85025; 85610; 85730; 93005; 93306; 96372; 96374; 99284; A9270-GY; G0378; G8978-GP-CH; G8979-GP-CH; G8980-GP-CH; J1650; J2405

== ENCOUNTER 2019-02-01 10:12 | Emergency (ER) | payer BC ==
--- OUTSIDE RECORDS SUMMARY | 2019-02-01 10:35 | XMS REPORT | Continuity of Care Document ---
:1945 External Reference #:[id number] Author Name Jordana Lee Care Team Providers Name Role Phone Austyn Boyd MD Primary Care Physician Unavailable Payers Date Identification Numbers Payment Provider Subscriber Policy Number: [id number] [facility] Joaquín Son Group Name: [id number] [address] PayID: [id number] [place] [address] Advance Directives Description No Information Available Problems Active Problems Provider Date Headache Mini Be M.D. Onset: 12/17/2013 Anxiety state Mini Be M.D. Onset: 12/17/2013 Localized, primary osteoarthritis Callie Arshad M.D. Onset: 05/29/2018 Trochanteric bursitis Callie Arshad M.D. Onset: 05/29/2018 Localized, primary osteoarthritis of the pelvic Callie Arshad M.D. Onset: region and thigh Gluteal tendinitis Callie Arshad M.D. Onset: 07/24/2016 Prosthetic arthroplasty of the hip Callie Arshad M.D. Onset: 07/24/2016 Localized, secondary osteoarthritis of the Callie Arshad M.D. Onset: 2015 pelvic region and thigh Family History Date Family Member(s) Observation Comments General Heart Disease General Diabetes General Cancer Social History Type Date Description Comments Sex Unknown Lives With Occupation Retired ETOH Use Denies alcohol use Tobacco Use Start: Unknown Patient has never smoked Smoking Status Reviewed: 01/20/19 Patient has never smoked Exercise Type/Frequency Exercises regularly Allergies, Adverse Reactions, Alerts Active Allergies Reaction Severity Comments Date vijay Ruff 09/18/2012 Sulfa flushing, itching, GI upset GI upset 09/18/2012 Augmentin flushing, itching, GI upset itchy 09/18/2012 Biaxin flushing, itching, GI upset ithcy 09/18/2012 Prednisone body shakes 10/21/2012 Keflex flushing, itching flushing 11/18/2014 Levaquin flushing, itching, GI upset 11/18/2014 Cipro joints locked up 09/13/2015 Medications Active Medications SIG Qnty Indications Ordering Date Provider Clindamycin HCL take 2 tabs by 2caps Mark Cid, 09/22/2015 300mg mouth 1 hour M.D. Capsules prior to dental procedure Sertraline HCL 2 by mouth every 180tabs Mini Be, 09/13/2015 100mg at bedtime M.D. Tablets Tramadol HCL 1 tablet by 90tabs Callie Arshad, 07/27/2015 50mg Tablets mouth every 6 M.D. hours as needed pain Gabapentin take 2 by mouth 360caps Rachel Paulino 08/06/2012 300mg Capsules every morning, 1 Stackman, M.D. by mouth qnoon, and 1 by mouth every night at bedtime Fluticasone Benzonatate 100mg Unknown Doxycycline 100mg Unknown Dextromethorphan 30mg Unknown Polistirex ER Benzonatate take one or two Unknown 100mg Capsules capsules every 8 hours as needed for cough. Timolol Maleate 1 drop per eye Unknown 0.25% daily Solution Lansoprazole 1 by mouth every Unknown 30mg Capsules day DR Latanoprost qhs both eyes Unknown 0.005% Solution Hyoscyamine Sulfate 2 po q 6h prn Unknown 0.125mg stomach pain Tablets Sub Zyrtec Allergy 1 po qd prn 30caps Unknown 10mg Capsules Glucophage 1 po tid 360tabs Unknown 500mg Tablets Glyburide 1/2 tab daily 60tabs Unknown 2.5mg Tablets Lisinopril 1 po bid 30tabs Unknown 10mg Tablets History Medications Yonatan Stocking Ble L03.116 Callie Arshad, 07/30/2015 - M.D. 04/04/2018 Diflucan take 1 tab po, 2tabs L03.116 Callie Arshad, 07/30/2015 - 150mg Tablets may repeat in 72 M.D. 08/11/2015 hours Doxycycline Hyclate 1 tab po bid 14caps Callie Arshad, 07/27/2015 - 100mg M.D. 08/11/2015 Capsules Ciprofloxacin HCL 1 tablet po bid 14tabs Callie Jeancarlos, 07/27/2015 - 500mg M.D. 08/11/2015 Tablets Aspirin Adult Low Dose 1 by mouth every 30tabs Callie Arshad, 07/27/2015 - day M.D. 11/01/[address] Murillo 2 tabs by mouth 80caps Z47.1 Kp Cardozo, 07/22/2015 - 300mg Capsules every 6 hours M.D. 07/24/2015 Tramadol HCL take 1 by mouth 60tabs 784.0 Callie Arshad, 05/13/2014 - 50mg Tablets once a day, as M.D. 07/27/2015 need for a severe headache. Maximum 3 days a week. Hyoscyamine Sulfate 2 po q 6h prn 25tabs Mini Be, 12/17/2013 - stomach pain M.D. 04/26/2016 0.125mg Tablets Sub Sertraline HCL take 1.5 tab by 135tabs Mini Be, 05/26/2013 - 50mg mouth each day M.D. 09/13/2015 Tablets Lexapro take 1 po qday, 60tabs Mini Be, 12/12/2012 - 5mg Tablets after 2 weeks M.D. 05/26/2013 increase to 2 tablets po qday. (PT States Taking 1 Tab Daily) Effexor XR take 1 po qday in 30caps Mini Be, 09/18/2012 - 37.5mg Caps ER addition to 75mg M.D. 10/21/2012 24HR tablet. Effexor XR 1 tab po every Mini Be, 09/11/2012 - 37.5mg Caps ER day for 7 days M.D. 09/11/2012 24HR then 2 tabpo every day for 21 days Effexor XR 1 po qd 30caps Mini Be, 09/11/2012 - 75mg Caps ER M.D. 12/12/2012 24HR Effexor XR take 1 po qday x 60caps Mini Be, 07/01/2012 - 37.5mg Caps ER 14 days, then 2 M.D. 09/11/2012 24HR po qday Nortriptyline HCL taper by 1 tablet 30caps Mini Be, 06/24/2012 - 10mg every 3 days to M.D. 07/01/2012 Capsules off Naphazoline/Pheniramin 1 drop left eye Unknown - e daily 01/12/2019 0.1% Solution Travatan Z 1 gtt drop ou qd Humphrey, - 0.004% Ottoniel O.DBo 11/01/2016 Solution Cholestyramine 1 packet in 2-6 30units Unknown - 4gm Packet ounces of water 08/11/2015 po every other day Prevacid 1 by mouth Qd 30caps Unknown - 30mg Capsules DR 04/04/2018 Culturelle 1 po qday Unknown - Capsules 05/11/2014 Hyoscyamine Sulfate 2 tablets every 6 Unknown - hours as needed 05/11/2014 0.125mg Tablets for diarrhea and Dispers stomach cramps. Tylenol Extra Strength 1 po bid, prn Unknown - body aches 04/04/2018 500mg Tablets Singulair 1 po qd prn 90tabs Unknown - 10mg Tablets 08/27/2013 Linzness 1 cap po daily Unknown - 145mg Capsule prn 12/16/2013 Patanol 1 gtt both eyes 5ml Unknown - 0.1% Solution qd prn allergies 11/17/2014 Timolol Maleate 1 gtt ou qhs Unknown - 0.5% 04/10/2016 Solution Latanoprost 1 gtt each eye Unknown - 0.005% daily 04/10/2016 Solution Protonix 1/2 po qd 30tabs Unknown - 40mg Tablets DR 05/11/2014 Medications Administered in Office Medication SIG Qnty Indications Ordering Provider Date Depomedrol 40MG Callie Arshad M.D. 01/13/2019 Injection Synvisc Or Synvisc-One Injection 1 Callie Arshad M.D. 09/27/2018 MG Injection Synvisc Or Synvisc-One Injection 1 Callie Arshad M.D. 09/18/2018 MG Injection Synvisc Or Synvisc-One Injection 1 Callie Arshad M.D. 09/11/2018 MG Injection Depomedrol 40MG Callie Arshad M.D. 05/29/2018 Injection Depomedrol 40MG Callie Arshad M.D. 04/22/2018 Injection Depomedrol 40MG Callie Arshad M.D. 01/05/2017 Injection Depomedrol 40MG Callie Arshad M.D. 12/20/2016 Injection Immunizations Description No Information Available Vital Signs Date Vital Result Comment 01/20/2019 10:13am Height 64 inches 5'4" Weight 150.00 lb BP Systolic 140 mmHg BP Diastolic 72 mmHg Body Temperature 98.4 F Pain Level 9 BMI (Body Mass Index) 25.7 kg/m2 01/13/2019 3:40pm Height 64.5 inches 5'4.50" Weight 150.00 lb BP Systolic 140 mmHg BP Diastolic 74 mmHg Body Temperature 99.2 F Pain Level 8 BMI (Body Mass Index) 25.3 kg/m2 09/27/2018 11:16am Height 64.5 inches 5'4.50" Heart Rate 68 /min BP Systolic 130 mmHg BP Diastolic 72 mmHg Body Temperature 98.7 F Pain Level 7 09/18/2018 10:53am Height 64.5 inches 5'4.50" Weight 149.00 lb BP Systolic 143 mmHg BP Diastolic 67 mmHg Respiratory Rate 16 /min Pain Level 6 BMI (Body Mass Index) 25.2 kg/m2 09/11/2018 10:33am Height 64.5 inches 5'4.50" Heart Rate 72 /min BP Systolic 128 mmHg BP Diastolic 82 mmHg Body Temperature 98.9 F Pain Level 7 06/26/2018 10:03am Height 64.5 inches 5'4.50" Weight 145.00 lb BP Systolic 150 mmHg BP Diastolic 72 mmHg Body Temperature 98.2 F Pain Level 6 BMI (Body Mass Index) 24.5 kg/m2 05/29/2018 10:13am Height 65 inches 5'5" Weight 143.00 lb Heart Rate 60 /min BP Systolic 120 mmHg BP Diastolic 72 mmHg Pain Level 7 BMI (Body Mass Index) 23.8 kg/m2 04/22/2018 3:13pm Height 64.5 inches 5'4.50" Heart Rate 56 /min BP Systolic Sitting 142 mmHg BP Diastolic Sitting 68 mmHg Respiratory Rate 16 /min Body Temperature 98.9 F Pain Level 5 04/05/2018 3:42pm Height 64.5 inches 5'4.50" Weight 145.00 lb Heart Rate 80 /min BP Systolic 156 mmHg BP Diastolic 74 mmHg BMI (Body Mass Index) 24.5 kg/m2 01/05/2017 8:01am Height 64.5 inches 5'4.50" Weight 149.00 lb Heart Rate 75 /min BP Systolic 145 mmHg BP Diastolic 61 mmHg Body Temperature 97.5 F BMI (Body Mass Index) 25.2 kg/m2 12/20/2016 11:09am Height 64.5 inches 5'4.50" Weight 149.00 lb Heart Rate 68 /min BP Systolic 148 mmHg BP Diastolic 63 mmHg Body Temperature 97.6 F BMI (Body Mass Index) 25.2 kg/m2 11/02/2016 11:52am Height 64 inches 5'4" Weight 150.00 lb Heart Rate 60 /min BP Systolic Sitting 108 mmHg BP Diastolic Sitting 74 mmHg Respiratory Rate 14 /min BMI (Body Mass Index) 25.7 kg/m2 07/24/2016 2:56pm Height 64 inches 5'4" Weight 146.00 lb Pain Level 3 BMI (Body Mass Index) 25.1 kg/m2 04/26/2016 11:33am Height 64 inches 5'4" Weight 146.25 lb Heart Rate 64 /min BP Systolic Sitting 140 mmHg BP Diastolic Sitting 72 mmHg Respiratory Rate 16 /min BMI (Body Mass Index) 25.1 kg/m2 12/22/2015 10:59am Height 64 inches 5'4" Weight 141.00 lb Heart Rate 76 /min BP Systolic Sitting 134 mmHg BP Diastolic Sitting 76 mmHg Respiratory Rate 14 /min BMI (Body Mass Index) 24.2 kg/m2 11/05/2015 10:30am Height 64 inches 5'4" Weight 155.00 lb Pain Level 7 BMI (Body Mass Index) 26.6 kg/m2 09/13/2015 1:12pm Height 64 inches 5'4" Weight 155.00 lb Heart Rate 60 /min BP Systolic Sitting 128 mmHg BP Diastolic Sitting 68 mmHg Respiratory Rate 14 /min BMI (Body Mass Index) 26.6 kg/m2 09/06/2015 2:40pm Height 64 inches 5'4" Weight 155.00 lb Pain Level 4 BMI (Body Mass Index) 26.6 kg/m2 08/12/2015 2:12pm Height 64 inches 5'4" Weight 158.00 lb Heart Rate 82 /min BP Systolic Sitting 128 mmHg BP Diastolic Sitting 66 mmHg Respiratory Rate 14 /min Body Temperature 98.9 F BMI (Body Mass Index) 27.1 kg/m2 08/11/2015 10:55am Height 64 inches 5'4" Weight 155.00 lb BMI (Body Mass Index) 26.6 kg/m2 07/30/2015 10:53am Height 64 inches 5'4" Weight 155.00 lb Body Temperature 98.9 F Pain Level 3 BMI (Body Mass Index) 26.6 kg/m2 07/22/2015 10:33am Height 64 inches 5'4" Weight 155.00 lb Heart Rate 86 /min BP Systolic 135 mmHg BP Diastolic 78 mmHg BMI (Body Mass Index) 26.6 kg/m2 11/18/2014 11:12am Height 64 inches 5'4" Weight 157.00 lb Heart Rate 60 /min BP Systolic Sitting 122 mmHg BP Diastolic Sitting 64 mmHg Respiratory Rate 16 /min BMI (Body Mass Index) 26.9 kg/m2 05/13/2014 1:36pm Height 64 inches 5'4" Weight 155.00 lb Heart Rate 68 /min BP Systolic Sitting 118 mmHg BP Diastolic Sitting 58 mmHg Respiratory Rate 16 /min BMI (Body Mass Index) 26.6 kg/m2 12/17/2013 9:01am Height 64 inches 5'4" Weight 161.00 lb Heart Rate 67 /min BP Systolic 120 mmHg BP Diastolic 70 mmHg Respiratory Rate 16 /min BMI (Body Mass Index) 27.6 kg/m2 08/27/2013 3:12pm Heart Rate 64 /min BP Systolic Sitting 138 mmHg BP Diastolic Sitting 56 mmHg Respiratory Rate 16 /min 05/26/2013 1:21pm Heart Rate 60 /min BP Systolic Sitting 128 mmHg BP Diastolic Sitting 66 mmHg Respiratory Rate 16 /min 02/26/2013 1:27pm Heart Rate 68 /min BP Systolic Sitting 122 mmHg BP Diastolic Sitting 54 mmHg Respiratory Rate 16 /min 10/21/2012 8:47am Heart Rate 89 /min BP Systolic Sitting 142 mmHg BP Diastolic Sitting 60 mmHg Respiratory Rate 18 /min 09/18/2012 8:39am Heart Rate 75 /min BP Systolic Sitting 132 mmHg BP Diastolic Sitting 64 mmHg Respiratory Rate 18 /min 07/01/2012 2:41pm Weight 163.00 lb Heart Rate 84 /min BP Systolic 128 mmHg BP Diastolic 68 mmHg Respiratory Rate 12 /min Results Test Date Facility Test Result H/L Range Note Comp Metabolic Panel 06/29/2015 [facility] Sodium 126 mmol/L Low 133-[address] [place] [address] [phone] Chloride 92 mmol/L Low 101-111 Co2 Carbon Dioxide 29 mmol/L N 22-32 Glucose 129 mg/dL High 70-100 1 Blood Urea Nitrogen 7 mg/dL N 6-24 2 Creatinine 0.52 mg/dL N 0.51-0.95 3 BUN/Creatinine Ratio 13.5 N 8-20 Calcium 9.8 mg/dL N 8.6-10.3 4 Total Protein 7.9 g/dL N 6.4-8.9 5 Albumin 4.9 g/dL N 3.2-5.2 6 Globulin 3.0 g/dL N 2-4 Albumin/Globulin Ratio 1.6 N 1-3 Total Bilirubin 0.40 mg/dL N 0.2-1.0 7 Alkaline Phosphatase 76 U/L N 34-104 8 Alt 13 U/L N 7-52 9 Egfr Non- 116.2 N >60 Egfr 149.5 N >60 10 Potassium TNP mmol/L N 3.5-5.0 11 Anion Gap TNP mmol/L N 2-11 Ast TNP U/L N 13-39 12 Laboratory test 06/29/2015 [facility] Sodium Random 82 mmol/L N finding [address] [place] [address] [phone] Osmolality Urine 241 mOsm/kg N 150-1150 Type & Screen 06/29/2015 [facility] Patient Blood Type O Positive N [address] [place] [address] [phone] Antibody Screen NEGATIVE N Laboratory test 06/29/2015 [facility] Inr/Protime 0.87 N 0.78- 1.[address] [place] [address] [phone] Partial Thrombo Time PTT 34.2 seconds N 26.0-36.3 CBC Auto 06/29/2015 [facility] White Blood 11.4 10^3/uL High 4.8-10.[address] [place] [address] [phone] Red Blood Count 4.78 10^6/uL N 4.0-5.4 Hemoglobin 13.3 g/dL N 12.0-16.0 Hematocrit 41 % N 35-47 Mean Corpuscular Volume 87 fL N 80-97 Mean Corpuscular Hemoglobin 28 pg N 27-31 Mean Corpuscular HGB Conc 32 g/dL N 31-36 Red Cell Distribution Width 14 % N 10.5-15 Platelet Count 446 10^3/uL N 150-450 Mean Platelet Volume 8 um3 N 7.4-10.4 Abs Neutrophils 9.2 10^3/uL High 1.5-7.7 Abs Lymphocytes 1.4 10^3/uL N 1.0-4.8 Abs Monocytes 0.6 10^3/uL N 0-0.8 Abs Eosinophils 0.2 10^3/uL N 0-0.6 Abs Basophils 0.1 10^3/uL N 0-0.2 Abs Nucleated RBC 0.01 10^3/uL N Granulocyte % 80.7 % N 38-83 Lymphocyte % 12.3 % Low 25-47 Monocyte % 5.1 % N 1-9 Eosinophil % 1.4 % N 0-6 Basophil % 0.5 % N 0-2 Nucleated Red Blood Cells % 0 N Urinalysis Profile 06/29/2015 [facility] Urine Color Straw [address] [place] [address] [phone] Urine Appearance Clear N Urine Specific [place] 1.004 Low 1.010-1.030 Urine pH 7.0 N 5-9 Urine Urobilinogen Negative N Negative Urine Ketones Negative N Negative Urine Protein Negative N Negative Urine Leukocytes Negative N Negative Urine Blood Negative N Negative Urine Nitrite Negative N Negative Urine Bilirubin Negative N Negative Urine Glucose Negative N Negative Laboratory test 07/04/2012 [facility] Lactic Acid 2.8 mmol/L High 0.5-1.[address] [place] [address] [phone] 1 Specimen hemolyzed. Result may not be valid. 2 Specimen hemolyzed. Result may not be valid. 3 Specimen hemolyzed. Result may not be valid. 4 Specimen hemolyzed. Result may not be valid. 5 Specimen hemolyzed. Result may not be valid. 6 Specimen hemolyzed. Result may not be valid. 7 Specimen hemolyzed. Result may not be valid. 8 Specimen hemolyzed. Result may not be valid. 9 Specimen hemolyzed. Result may not be valid. 10 Because ethnic data is not always readily available, this report includes an eGFR for both -Americans and non- Americans. The National Kidney Disease Education Program (NKDEP) does not endorse the use of the MDRD equation for patients that are not between the ages of 18 and 70, are , have extremes of body size, muscle mass, or nutritional status, or are non- or non-. According to the National Kidney Foundation, irrespective of diagnosis, the stage of the disease is based on the level of kidney function: Stage Description GFR(mL/min/1.73 m(2)) 1 Kidney damage with normal or decreased GFR 90 2 Kidney damage with mild decrease in GFR 60-89 3 Moderate decrease in GFR 30-59 4 Severe decrease in GFR 15-29 5 Kidney failure <15 (or dialysis) 11 Unable to report test result due to hemolysis. 12 Unable to report test result due to hemolysis. Procedures Date Code Description Status 01/13/2019 Inject/Drain Joint/Bursa Major W/O US Completed 12/23/2018 80987 ECHO Transthorasic Realtime 2D W Doppler & Color Flow Hosp Completed 09/27/2018 Inject/Drain Joint/Bursa Major W/O US Completed 09/18/2018 Inject/Drain Joint/Bursa Major W/O US Completed 09/11/2018 Inject/Drain Joint/Bursa Major W/O US Completed 05/29/2018 Inject/Drain Joint/Bursa Major W/O US Completed 04/22/2018 Injection Single Tendon Origin/Insertion Completed 01/05/2017 Inject/Drain Joint/Bursa Major W/O US Completed 12/20/2016 Injection Single Tendon Origin/Insertion Completed 12/27/2015 84281 ECHO Transthorasic Realtime 2D W Doppler & Color Flow Hosp Completed 06/30/2015 88375 Open TX Of Femoral FX,Promimal End,Neck Internal Fixation Completed 06/30/2015 26098 Open TX Of Femoral FX,Promimal End,Neck Internal Fixation Completed 06/29/2015 29512 EKG, Interpretation Only Completed 01/01/2015 69068 ECHO Transthorasic Realtime 2D W Doppler & Color Flow Hosp Completed Encounters Type Date Location Provider Dx Diagnosis Office Visit 12/24/2018 [facility] Gregory Arciniega R55 Syncope and 8:33a Assoc,pc Hospitalists Porsche Cunha,FACP collapse E11.9 Type 2 diabetes mellitus without complications R51 Headache K21.9 Gastro-esophageal reflux disease without esophagitis I10 Essential (primary) hypertension F41.9 Anxiety disorder, unspecified H40.9 Unspecified glaucoma E86.0 Dehydration E87.1 Hypo-osmolality and hyponatremia Office Visit 12/23/2018 8:32a [facility] Rhianna Dill, R79.89 Other specified Assoc,pc abnormal Hospitalists findings of blood chemistry R55 Syncope and collapse R11.2 Nausea with vomiting, unspecified R19.7 Diarrhea, unspecified E87.1 Hypo-osmolality and hyponatremia I10 Essential (primary) hypertension E11.9 Type 2 diabetes mellitus without complications R51 Headache Office Visit 06/26/2018 Orthopedic Callie M17.11 Unilateral primary 9:45a Services Of Porsche Arshad osteoarthritis, right C.M.A. knee M25.561 Pain in right knee Office Visit 05/29/2018 10:00a [facility]opedic Services Callie Arshad, M25.551 Pain in right Of C.M.A. M.Carine. hip W19.xxxD Unspecified fall, subsequent encounter M16.11 Unilateral primary osteoarthritis, right hip S70.02xD Contusion of left hip, subsequent encounter M70.62 Trochanteric bursitis, left hip M70.61 Trochanteric bursitis, right hip M25.561 Pain in right knee M25.461 Effusion, right knee M17.11 Unilateral primary osteoarthritis, right knee M16.0 Bilateral primary osteoarthritis of hip Office Visit 04/05/2018 3:15p Orthopedic Services Callie Arshad, M25.551 Pain in right Of C.M.A. M.D. hip M25.552 Pain in left hip Z96.642 Presence of left artificial hip joint M16.11 Unilateral primary osteoarthritis, right hip W19.xxxA Unspecified fall, initial encounter S70.02xA Contusion of left hip, initial encounter Office Visit 11/02/2016 [place] Mini Be G43.919 Migraine, unsp, 10:45a Neurologic M.D. intractable, Services Of Reservoir Engineer without status migrainosus F41.9 Anxiety disorder, unspecified Office Visit 07/24/2016 3:00p Orthopedic Services Callie Arshad M25.552 Pain in left Of C.M.A. M.D. hip Z96.642 Presence of left artificial hip joint M76.02 Gluteal tendinitis, left hip Office Visit 04/26/2016 [place] Mini Be, G43.919 Migraine, unsp, 11:15a Neurologic M.DBo intractable, Services Of [facility] without status migrainosus F41.9 Anxiety disorder, unspecified Office Visit 12/28/2015 9:34a [facility] Mark Méndez, R53.1 Weakness Assoc, Hospitalists M.D. R79.89 Other specified abnormal findings of blood chemistry E86.0 Dehydration Office Visit 12/27/2015 9:33a [facility] Kandis Weeks, R53.1 Weakness Assoc, Hospitalists SENIOR QC TECHNICIAN R79.89 Other specified abnormal findings of blood chemistry E86.0 Dehydration Office Visit 12/22/2015 [place] Mini Be, G43.919 Migraine, unsp, 10:45a Neurologic M.D. intractable, Services Of Reservoir Engineer without status migrainosus F41.9 Anxiety disorder, unspecified R25.1 Tremor, unspecified Office Visit 11/05/2015 10:30a Orthopedic Callie Arshad, Z47.1 Aftercare Services Of M.D. following joint C.M.A. 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 intractable, Services Of [facility] without status migrainosus F41.9 Anxiety disorder, unspecified Office Visit 08/12/2015 [facility] Oleg Arciniega T85.83xD Hemorrhage due 2:20p Infectious Porsche Zelaya to internal Diseases prosth dev/grft, NEC, subs Office Visit 07/26/2015 [facility] Sue M00.9 Pyogenic 12:59p Assoc,pc Porsche Brown arthritis, Hospitalists unspecified E11.9 Type 2 diabetes mellitus without complications I10 Essential (primary) hypertension Office Visit 07/26/2015 11:53a [facility] Oleg Arciniega L03.116 Cellulitis of For Adri Zelaya M.D. left lower limb Diseases T81.4xxA Infection following a procedure, initial encounter Z96.642 Presence of left artificial hip joint Office Visit 07/25/2015 12:59p [facility] Stevan M00.9 Pyogenic Assoc,pc Porsche Avendaño arthritis, Hospitalists unspecified E11.9 Type 2 diabetes mellitus without complications I10 Essential (primary) hypertension Office Visit 07/24/2015 7:00a Orthopedic Callie L03.116 Cellulitis of Services Of Candie Arshad M.D. left lower limb Office Visit 07/24/2015 12:58p [facility] Lary Mansfield, M00.9 Pyogenic Assoc,pc N.P. arthritis, Hospitalists unspecified E11.9 Type 2 diabetes mellitus without complications I10 Essential (primary) hypertension Office Visit 07/02/2015 10:54a [facility] Kandis Weeks, S72.002G Fx unsp Assoc,pc SENIOR QC TECHNICIAN part of nk Hospitalists of omdi, subs for clos fx w delay heal E11.8 Type 2 diabetes mellitus with unspecified complications E78.5 Hyperlipidemia, unspecified I10 Essential (primary) hypertension Office Visit 07/01/2015 10:54a [facility] Kandis Weeks, S72.002G Fx unsp Assoc,pc SENIOR QC TECHNICIAN part of nk Hospitalists of [facility], subs for clos fx w delay heal E11.8 Type 2 diabetes mellitus with unspecified complications E78.5 Hyperlipidemia, unspecified I10 Essential (primary) hypertension Office Visit 06/30/2015 10:53a [facility] Kandis Weeks, S72.002G Fx unsp Assoc,pc SENIOR QC TECHNICIAN part of nk Hospitalists of [facility], subs for clos fx w delay heal E11.8 Type 2 diabetes mellitus with unspecified complications E78.5 Hyperlipidemia, unspecified I10 Essential (primary) hypertension Office Visit 06/29/2015 10:52a [facility] Jude Park, S72.002G Fx unsp Assoc,pc N.P. part of nk Hospitalists of [facility] subs for clos fx w delay heal E11.8 Type 2 diabetes mellitus with unspecified complications E78.5 Hyperlipidemia, unspecified I10 Essential (primary) hypertension Office Visit 01/01/2015 7:59a [facility] Robert Sandoval, 435.9 TIA Ischemia Assoc,santos Morrell Cerebral Hospitalists Transient Unspec 276.1 Hyposmolality & Or Hyponatremia 401.9 Hypertension Unspec 250.00 Diabetes Mellitus W/O Compl Type II Or Unspec Controlled Office Visit 12/31/2014 [facility] Mini Be, 780.97 Altered 9:52a Clinic M.Demian Mental Status 799.59 Other Signs And Symptoms Involving Cognition 401.9 Hypertension Unspec Office Visit 12/31/2014 7:52a [facility] Janell Hawkins 435.9 TIA Ischemia Assoc,santos Foster, N.P. Cerebral Hospitalists Transient Unspec 276.1 Hyposmolality & Or Hyponatremia 250.00 Diabetes Mellitus W/O Compl Type II Or Unspec Controlled 401.9 Hypertension Unspec Office Visit 11/18/2014 11:00a [place] [facility] Mini Be, 784.0 Headache Services Of [facility] Porsche 300.00 Anxiety State Unspec Office Visit 05/13/2014 1:30p [place] [facility] Mini Be 784.0 Headache Services Of [facility] Porsche 300.00 Anxiety State Unspec Office Visit 12/17/2013 8:45a [place] [facility] Mini Be 784.0 Headache Services Of [facility] Porsche 300.00 Anxiety State Unspec Office Visit 08/27/2013 3:00p [place] [facility] Mini Be, 346.91 Migraine Unspec Services Of Reservoir Engineer M.D. W/ Intractable W/O Status Migrainosus 300.00 Anxiety State Unspec Office Visit 05/26/2013 1:15p [place] [facility] Mini Be, 346.91 Migraine Unspec Services Of [employer]ervoir Engineer M.D. W/ Intractable W/O Status Migrainosus 300.00 Anxiety State Unspec Office Visit 02/26/2013 1:30p [facility] Be, 346.91 Migraine Unspec Services Of [employer]ervoir Engineer M.D. W/ Intractable W/O Status Migrainosus 781.2 Gait Abnormality 799.59 Other Signs And Symptoms Involving Cognition Office Visit 12/12/2012 11:45a [facility] Mini Be, 346.91 Migraine Unspec Services Of [employer]ervoir Engineer M.D. W/ Intractable W/O Status Migrainosus 300.00 Anxiety State Unspec Office Visit 10/21/2012 Scot Be, 346.71 Chronic Migraine 8:45a Neurologic M.D. W/Out Aura, Services Of [employer]ervoir Engineer W/Intractable W/O Migrainosus Office Visit 09/18/2012 Scot Be, 346.91 Migraine Unspec W/ 8:30a Neurologic M.D. 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 Gastroenteritis Hospitalists Presumed Infectious Orig 250.00 Diabetes Mellitus W/O Compl Type II Or Unspec Controlled 401.9 Hypertension Unspec Office Visit 07/05/2012 [facility] [place] 009.1 Colitis Enteritis & 1:47p Asssantos owens M.D. Gastroenteritis Hospitalists Presumed Infectious Orig 250.00 Diabetes Mellitus W/O Compl Type II Or Unspec Controlled 401.9 Hypertension Unspec Office Visit 07/04/2012 [facility] Jude 009.1 Colitis Enteritis & 1:48p Assocsantos, N.P. 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 W/ Intractable W/O Status Migrainosus Office Visit 04/29/2012 11:00a [facility] Mini Amilcarsari, 784.0 Headache Services Of Sophia Morrell Plan of Treatment 01/20/2019 - Callie Arshad M.D.M25.562 Pain in left kneeFollow up:Follow up: [employer] authorization needed. Follow up appointment DWAYNE.M25.462 Effusion, left kneeM17.12 Unilateral primary osteoarthritis, left kneeW19.xxxA Unspecified fall , initial awcjzhvvjH69.552 Pain in left hipNew Xrays:Hip Left 2 Views And Pelvis 90991 - 05913, Ordered: 01/20/19Z96.642 Presence of left artificial hip macueA16.512 Pain in left shoulderNew Xrays:Shoulder Left 2+ VWS, Ordered: 01/20
--- OUTSIDE RECORDS SUMMARY | 2019-02-01 10:35 | XMS REPORT | Continuity of Care Document ---
:1945 External Reference #:[id number] Author Name Ottoniel Nevarezon, OD Address [address] [place] [address] Care Team Providers Name Role Phone Austyn Boyd MD Care Team Information Alumni Relations Coordinator Unavailable Deb PEARCE, Austyn Primary Care Physician Unavailable Payers Date Identification Numbers Payment Provider Subscriber Policy Number: [id number] [employer] Joaquín Son PayID: [id number] [address] [address] [place] [address] Advance Directives Description No Information Available Problems Active Problems Provider Date Type 2 diabetes mellitus Onset: 09/17/2013 Essential hypertension Onset: 09/17/2013 Ocular hypertension Ottoniel Yin O.D. Onset: 09/17/2013 Chronic conjunctivitis Ottoniel Yin O.D. Onset: 09/17/2013 Chronic allergic conjunctivitis Ottoniel Yin O.D. 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 Onset: 08/2014 Open-angle glaucoma Ottoniel Yin O.D. Onset: 04/21/2014 Tear film insufficiency Ottoniel Yin O.D. Onset: 04/21/2014 Cortical senile cataract Ottoniel Yin O.D. Onset: 04/21/2014 Nuclear senile cataract Ottoniel Yin O.D. Onset: 04/21/2014 Combined form of senile cataract Ottoniel Yin O.D. Onset: 09/14/2015 Type 2 diabetes mellitus with mild Ottoniel Yin O.D. Onset: 09/14/2015 nonproliferative diabetic retinopathy without macular edema Primary open-angle glaucoma, mild stage Ottoniel Yin O.D. Onset: 2015 Convalescence after surgery Red Tom M.D. Onset: 11/10/2015 Presence of intraocular lens Ottoniel Yin O.D. Onset: 11/23/2015 Other secondary cataract, right eye Red Tom M.D. Onset: 02/12/2017 Other secondary cataract, left eye Red Tom M.D. Onset: 02/12/2017 Family History Date Family Member(s) Observation Comments Father due to Diabetes () Father Glasses Father due to Heart Attack () Father Diabetes Father Heart Disease Father High BP Mother due to Cervical Cancer () Mother Cancer Mother Thyroid Disease Mother Glasses Mother Arthritis Social History Type Date Description Comments Sex Unknown ETOH Use Rarely consumes alcohol Tobacco Use Start: Unknown Patient has never smoked Smoking Status Reviewed: 01/07/19 Patient has never smoked Allergies, Adverse Reactions, Alerts Active Allergies Reaction Severity Comments Date Codeine 09/17/2013 Sulfa Antibiotics 09/17/2013 Biaxin 09/17/2013 Levaquin 09/17/2013 Augmentin 09/17/2013 Cipro 09/14/2015 Prednisone 10/08/2018 Medications Active Medications SIG Qnty Indications Ordering Provider Date Timolol Maleate one drop twice a 15ml Ottoniel Moon, OD 07/29/2018 0.5% day both eyes Solution Gabapentin Haile PEARCE, Mini 300mg Capsules Sertraline HCL Haile PEARCE, Mini 50mg Tablets Glucophage Deb PEARCE, Austyn 500mg Tablets Glyburide Deb PEARCE, Austyn 2.5mg Tablets Lisinopril Deb PEARCE, Austyn 10mg Tablets Onetouch Ultra Blue Deb PEARCE, Austyn Strips Escitalopram Oxalate Haile PEARCE, Mini 5mg Tablets Zyrtec Allergy Unknown 10mg Capsules History Medications Timolol Maleate one drop 15ml Ottoniel Moon, 07/15/2018 - 0.5% twice a day OD 07/29/2018 Solution both eyes Timolol Maleate one drop 15ml Ottoniel Moon, 07/08/2018 - 0.5% twice a day OD 07/15/2018 Solution both eyes Timolol Maleate one drop 15ml H40.1131 Ottoniel Moon, 09/27/2017 - 0.5% twice a day OD 07/08/2018 Solution both eyes Betimol 1 gtt od bid 10ml H26.491 Red Tom, 02/12/2017 - 0.5% Solution M.D. 02/12/2017 Timolol Maleate 1 drop both 15ml Red Tom, 02/12/2017 - 0.25% eyes twice a M.D. 03/27/2017 Solution day Latanoprost 1 drop drops 7.500ml Red Tom, 06/30/2016 - 0.005% Solution both eyes M.D. 03/27/2017 every night Ketorolac Tromethamine 1 drops left 10ml Red Tom, 10/21/2015 - 0.5% eye twice a M.D. 12/02/2015 Solution day Pred Forte 1 drops left 10ml Red Tom, 10/21/2015 - 1% Suspension eye four M.D. 12/02/2015 times a day Tobramycin 1 drop drops 5ml Red Tom, 10/21/2015 - 0.3% Solution left eye four M.D. 12/02/2015 times a day Timolol Maleate 1 drop both 15ml Ottoniel Yin, 12/15/2014 - 0.25% eyes twice a O.D. 01/17/2016 Solution day Timolol Maleate 1 drop drops 15ml Ottoniel Yin, 12/02/2013 - 0.5% both eyes O.D. 12/15/2014 Solution twice a day Latanoprost 1 drop drops 7.500ml Ottoniel Yin, 09/17/2013 - 0.005% Solution both eyes O.D. 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[employer]ER, - 200mg Capsules July 03/27/2017 Venlafaxine HCL ER Haile PEARCE, - 37.5mg Mini 03/27/2017 Caps ER 24HR Nystatin/Triamcinolone Unknown - 03/27/2017 981568-5.1Unit/GM-% Cream Montelukast Sodium Deb PEARCE, - 10mg Austyn 10/08/2018 Tablets Mupirocin Deb PEARCE, - 2% Ointment Austyn 03/27/2017 Steve Malagon MD, - 145mcg Capsules Red 03/27/2017 Alphagan P Unknown - 0.1% Solution 09/17/2013 Pantoprazole Sodium Deb PEARCE, - 40mg Austyn 03/27/2017 Tablets Hyoscyamine Sulfate Deb PEARCE, - 0.125mg Austyn 03/27/2017 Tablets Immunizations Description No Information Available Vital Signs Date Vital Result Comment 01/07/2019 10:45am Intraocular Pressure Right Eye 17 mmHg Intraocular Pressure Left Eye 16 mmHg 10/08/2018 10:45am Intraocular Pressure Right Eye 16 mmHg Intraocular Pressure Left Eye 15 mmHg 07/08/2018 11:28am Intraocular Pressure Right Eye 14 mmHg Intraocular Pressure Left Eye 13 mmHg 03/28/2018 10:23am Intraocular Pressure Right Eye 12 mmHg Intraocular Pressure Left Eye 13 mmHg 12/27/2017 10:23am Intraocular Pressure Right Eye 15 mmHg Intraocular Pressure Left Eye 14 mmHg 10/15/2017 10:21am Intraocular Pressure Right Eye 13 mmHg 09/27/2017 10:23am Intraocular Pressure Right Eye 12 mmHg Intraocular Pressure Left Eye 13 mmHg 06/27/2017 2:21pm Intraocular Pressure Right Eye 12 mmHg Intraocular Pressure Left Eye 12 mmHg 03/27/2017 1:25pm Intraocular Pressure Right Eye 14 mmHg Intraocular Pressure Left Eye 14 mmHg 02/27/2017 11:05am Intraocular Pressure Right Eye 16 mmHg Intraocular Pressure Left Eye 16 mmHg 02/21/2017 3:14pm Intraocular Pressure Right Eye 12 mmHg Intraocular Pressure Left Eye 12 mmHg 02/12/2017 11:03am Intraocular Pressure Right Eye 15 mmHg Intraocular Pressure Left Eye 15 mmHg 01/02/2017 10:52am Intraocular Pressure Right Eye 15 mmHg Intraocular Pressure Left Eye 15 mmHg 10/04/2016 9:34am Intraocular Pressure Right Eye 15 mmHg Intraocular Pressure Left Eye 15 mmHg 06/29/2016 2:25pm Intraocular Pressure Right Eye 13 mmHg Intraocular Pressure Left Eye 13 mmHg 04/03/2016 9:33am Intraocular Pressure Right Eye 12 mmHg Intraocular Pressure Left Eye 12 mmHg 01/17/2016 10:38am Intraocular Pressure Right Eye 15 mmHg Intraocular Pressure Left Eye 15 mmHg 12/16/2015 11:00am Intraocular Pressure Right Eye 16 mmHg Intraocular Pressure Left Eye 16 mmHg 12/02/2015 12:15pm Intraocular Pressure Right Eye 21 mmHg Intraocular Pressure Left Eye 17 mmHg 11/23/2015 1:45pm Intraocular Pressure Right Eye 26 mmHg Intraocular Pressure Left Eye 32 mmHg 11/17/2015 8:29am Intraocular Pressure Right Eye 23 mmHg Intraocular Pressure Left Eye 20 mmHg 11/10/2015 8:31am Intraocular Pressure Left Eye 9 mmHg 10/20/2015 1:59pm Intraocular Pressure Right Eye 16 mmHg Intraocular Pressure Left Eye 14 mmHg 09/14/2015 1:35pm Intraocular Pressure Right Eye 12 mmHg Intraocular Pressure Left Eye 10 mmHg 04/15/2015 10:53am Intraocular Pressure Right Eye 11 mmHg Intraocular Pressure Left Eye 10 mmHg 01/12/2015 11:35am Intraocular Pressure Right Eye 11 mmHg Intraocular Pressure Left Eye 11 mmHg 12/15/2014 11:49am Intraocular Pressure Right Eye 14 mmHg Intraocular Pressure Left Eye 11 mmHg 10/22/2014 11:22am Intraocular Pressure Right Eye 15 mmHg Intraocular Pressure Left Eye 15 mmHg 07/22/2014 10:52am Intraocular Pressure Right Eye 11 mmHg Intraocular Pressure Left Eye 10 mmHg 04/21/2014 11:11am Intraocular Pressure Right Eye 11 mmHg Intraocular Pressure Left Eye 10 mmHg 01/14/2014 10:25am Intraocular Pressure Right Eye 14 mmHg Intraocular Pressure Left Eye 13 mmHg 09/17/2013 11:22am Intraocular Pressure Right Eye 13 mmHg Intraocular Pressure Left Eye 12 mmHg Results Test Date Facility Test Result H/L Range Note Laboratory test 11/16/2015 [facility] Point of Care 115 mg/dL High 74-106 [address] [address] [phone] Laboratory test 11/09/2015 [facility] Point of Care 117 mg/dL High 74-106 [address] Glucose [place] [id number] [phone] 1 Physics Faculty Member: [id number] LALIT ODEN 2 Physics Faculty Member: [id number] ELYSIA Hopson Procedures Date Code Description Status 10/08/2018 73447 Oct, Optic Nerve Completed 10/08/2018 13851 Eye Exam Est Intermediate Completed 07/08/2018 30145 Visual Field Exam Extended, Unilateral Or Bilateral Completed 07/08/2018 89990 Eye Exam Est Intermediate Completed 03/28/2018 27925 Eye Exam Est Intermediate Completed 12/27/2017 06824 Fundus Photography W/Interpretation & Report Completed 12/27/2017 32076 Ophthalmoscopy Subsequent Completed 12/27/2017 74802 Eye Exam Est Intermediate Completed 10/15/2017 77731 Eye Exam Est Intermediate Completed 10/15/2017 50703 Ophthalmoscopy Subsequent Completed 09/27/2017 09280 Eye Exam Est Intermediate Completed 06/27/2017 23425 Visual Field Exam Extended, Unilateral Or Bilateral Completed 06/27/2017 38163 Eye Exam Est Intermediate Completed 03/27/2017 69752 Oct, Optic Nerve Completed 03/27/2017 48476 Eye Exam Est Intermediate Completed 02/27/2017 43520 Eye Exam Est Intermediate Completed 02/21/2017 30752 Remove Secondary Cataract, Laser (Yag) Completed 02/12/2017 93856 Remove Secondary Cataract, Laser (Yag) Completed 01/02/2017 05379 Eye Exam Est Comprehensive Completed 01/02/2017 75966 Ophthalmoscopy Subsequent Completed 01/02/2017 48100 Fundus Photography W/Interpretation & Report Completed 10/04/2016 46448 Oct, Optic Nerve Completed 10/04/2016 22000 Eye Exam Est Intermediate Completed 06/29/2016 68846 Visual Field Exam Extended, Unilateral Or Bilateral Completed 06/29/2016 51610 Eye Exam Est Intermediate Completed 04/03/2016 03206 Fundus Photography W/Interpretation & Report Completed 04/03/2016 98768 Refraction Completed 04/03/2016 91693 Eye Exam Est Intermediate Completed 11/16/2015 0191T Insertion Of Anterior Segment Aqueous Drainage Device Completed 11/16/2015 08578 Extracapsular Cataract Extraction W/Intraocular Lens Completed 11/09/2015 49900 Extracapsular Cataract Extraction W/Intraocular Lens Completed 11/09/2015 0191T Insertion Of Anterior Segment Aqueous Drainage Device Completed 10/20/2015 62045 Ophthalmic Biometry By Partial Coherence Interferometry Completed W/Intra 10/20/2015 77970 Eye Exam Est Intermediate Completed 09/14/2015 65922 Oct Retina Completed 09/14/2015 31944 Eye Exam Est Intermediate Completed 04/15/2015 70645 Oct Retina Completed 04/15/2015 89358 Eye Exam Est Comprehensive Completed 01/12/2015 46506 Visual Field Exam Extended, Unilateral Or Bilateral Completed 01/12/2015 13662 Eye Exam Est Intermediate Completed 12/15/2014 16890 Eye Exam Est Intermediate Completed 10/22/2014 59170 Oct, Optic Nerve Completed 10/22/2014 12812 Eye Exam Est Intermediate Completed 07/22/2014 92675 Eye Exam Est Intermediate Completed 04/21/2014 51676 Fundus Photography W/Interpretation & Report Completed 04/21/2014 06739 Refraction Completed 04/21/2014 71608 Eye Exam Est Comprehensive Completed 01/14/2014 14066 Visual Field Exam Extended, Unilateral Or Bilateral Completed 01/14/2014 15922 Eye Exam Est Intermediate Completed 09/17/2013 76870 Eye Exam Est Intermediate Completed 12/19/2011 33800 Eye Exam Est Intermediate Completed 12/19/2011 19071 Visual Field Exam Extended, Unilateral Or Bilateral Completed 12/19/2011 14363 Oct, Optic Nerve Completed 08/29/2011 12061 Eye Exam Est Intermediate Completed 08/29/2011 83831 Corneal Pachymetry, Unilateral/Bilateral Completed 07/21/2011 81865 Eye Exam Est Intermediate Completed 06/19/2011 93166 Visual Field Exam Extended, Unilateral Or Bilateral Completed 06/19/2011 32723 Eye Exam Est Intermediate Completed 06/06/2011 67961 Eye Exam Est Intermediate Completed 04/20/2011 19286 Eye Exam Est Intermediate Completed 03/29/2011 43537 Eye Exam Est Intermediate Completed 03/17/2011 66230 Fundus Photography W/Interpretation & Report Completed 03/17/2011 06860 Refraction Completed 03/17/2011 90445 Eye Exam Est Comprehensive Completed 12/16/2010 37526 Eye Exam Est Intermediate Completed 11/08/2010 70389 Eye Exam Est Intermediate Completed 10/24/2010 71314 Eye Exam Est Intermediate Completed 10/17/2010 00111 Eye Exam Est Intermediate Completed 10/13/2010 30711 Eye Exam Est Intermediate Completed 09/19/2010 57493 Eye Exam Est Intermediate Completed 09/19/2010 85770 Refraction Completed 09/12/2010 06267 Eye Exam Est Intermediate Completed 06/30/2010 53261 Eye Exam Est Intermediate Completed 03/31/2010 07847 Visual Field Exam Extended, Unilateral Or Bilateral Completed 03/31/2010 81057 Eye Exam Est Intermediate Completed 03/17/2010 93314 Fundus Photography W/Interpretation & Report Completed 03/17/2010 78481 Ophthalmoscopy Initial Completed 03/17/2010 52561 Refraction Completed 03/17/2010 54583 Eye Exam New Comprehensive Completed 03/17/2010 22123 Corneal Pachymetry, Unilateral/Bilateral Completed Encounters Type Date Location Provider Dx Diagnosis Office Visit 10/29/2017 Main Office Ottoniel Moon, OD E11.3293 Type 2 diab with 10:15a mild nonp rtnop without macular edema, bi H43.811 Vitreous degeneration, right eye H40.1131 Primary open-angle glaucoma, bilateral, mild stage Office Visit 09/13/2011 3:30p Main Office Red Tom, 365.10 Glaucoma Open Angle M.D. Unspec Office Visit 08/11/2011 9:40a Main Office DR. Gisselle Mejias, 372.14 Conjunctivitis O.D. Chronic Allergic Other Office Visit 05/19/2011 2:30p Main Office Red Tom, 365.10 Glaucoma Open Angle M.D. Unspec Office Visit 05/04/2011 10:15a Main Office Red Tom 365.10 Glaucoma Open Angle M.D. Unspec 373.32 Dermatitis Eyelid Contact & Allergic Office Visit 04/28/2011 9:40a Main Office DR. Pitts 372.14 Conjunctivitis Boscia, O.D. Chronic Allergic Other Office Visit 04/05/2011 10:00a Main Office Red 373.32 Dermatitis Magdalena Tom M.D. Contact & Allergic 365.10 Glaucoma Open Angle Unspec Plan of Treatment 01/07/2019 - Ottoniel Moon, ODH40.1131 Primary open-angle glaucoma, bilateral, mild cbozvP44.3293 Type 2 diabetes mellitus with mild nonproliferative diabetic retinopathy without macular edema, xgxrhwzmhS14.4 UoedyomxjbP52.811 Vitreous degeneration, right eyeFollow up:3 mos mac oct
--- OUTSIDE RECORDS SUMMARY | 2019-02-01 10:35 | XMS REPORT | Continuity of Care Document ---
:1945 External Reference #:[id number] Author Name Edwina Padilla Care Team Providers Name Role Phone Austyn Boyd MD Primary Care Physician Unavailable Payers Date Identification Numbers Payment Provider Subscriber Policy Number: [id number] Fep Joaquín Son Group Name: [id number] [address] PayID: [id number] EliezerOBED [id number] [id number] Advance Directives Description No Information Available Problems [...] Patient has never smoked Smoking Status Reviewed: 01/13/19 Patient has never smoked Exercise Type/Frequency Exercises [...] Paulino 08/06/2012 300mg Capsules every morning, 1 Porsche Eisenberg by mouth qnoon, and 1 by mouth [...] 30tabs Unknown 10mg Tablets History Medications Yonatan Stockumer Ble L03.116 Callie Arshad, 07/30/2015 - M.D. 04/04/2018 Diflucan take 1 tab po, 2tabs L03.116 Calliesruthi Liuke, 07/30/2015 - 150mg Tablets may repeat in 72 M.D. 08/11/2015 hours Doxycycline Hyclate 1 tab po bid 14caps Callie Arshad, 07/27/2015 - 100mg M.D. 08/11/2015 Capsules Ciprofloxacin HCL 1 tablet po bid 14tabs Callie Arshad, 07/27/2015 - 500mg M.D. 08/11/2015 Tablets Aspirin [...] 2 po q 6h prn 25tabs Mini eB, 12/17/2013 - stomach pain M.D. 04/26/2016 0.125mg [...] gtt drop ou qd Humphrey, - 0.004% Zahra Alcazar 11/01/2016 Solution Cholestyramine 1 packet in 2-6 30units Unknown - 4gm Packet ounces of water 08/11/2015 po every other day Prevacid 1 by mouth Qd 30caps Unknown - 30mg Capsules 04/04/2018 Culturelle 1 po qday Unknown - [...] po qd 30tabs Unknown - 40mg Tablets 05/11/2014 Medications Administered in Office Medication SIG Qnty Indications Ordering Provider Date Synvisc Or Synvisc-One Injection 1 Callie Arshad [...] Available Vital Signs Date Vital Result Comment 01/13/2019 3:40pm Height 64.5 inches 5'4.50" Weight [...] Date Facility Test Result H/L Range Note Type & Screen 06/29/2015 [facility] Patient Blood O Positive [address] [place] [address] [phone] Antibody Screen NEGATIVE N Comp Metabolic Panel 06/29/2015 [facility] Sodium 126 mmol/L Low 133-[address] [place] [address] [phone] Chloride 92 mmol/L Low 101-111 Co2 Carbon [...] U/L N 13-39 12 Laboratory test 06/29/2015 [facility] Sodium Random 82 mmol/L N finding [address] [place] [address] [phone] Osmolality Urine 241 mOsm/kg N 150-1150 Laboratory test 06/29/2015 [facility] Inr/Protime 0.87 N 0.78- 1.[address] [place] [address] [phone] Partial Thrombo Time PTT 34.2 seconds N 26.0-36.3 CBC Auto 06/29/2015 [facility] White Blood 11.4 10^3/uL High 4.8-10.[address] [place] [address] [phone] Red Blood Count 4.78 10^6/uL N 4.0-5.4 [...] Cells % 0 N Urinalysis Profile 06/29/2015 [facility] Urine Color Straw N [address] [place] [address] [phone] Urine Appearance Clear N Urine Specific Lewis 1.004 Low 1.010-1.030 Urine pH 7.0 N 5-9 Urine Urobilinogen Negative N Negative Urine Ketones Negative N Negative Urine Protein Negative N Negative Urine Leukocytes Negative N Negative Urine Blood Negative N Negative Urine Nitrite Negative N Negative Urine Bilirubin Negative N Negative Urine Glucose Negative N Negative Laboratory test 07/04/2012 [facility] Lactic Acid 2.8 mmol/L High 0.5-1.[address] [place] [address] [phone] 1 Specimen hemolyzed. Result may not be [...] to hemolysis. Procedures Date Code Description Status 01/13/201901804 Inject/Drain Joint/Bursa Major W/O US Completed 12/23/2018 29486 ECHO Transthorasic Realtime 2D W Doppler & Color Flow Hosp Completed 09/27/201836883 Inject/Drain Joint/Bursa Major W/O US Completed 09/18/201843568 Inject/Drain Joint/Bursa Major W/O US Completed 09/11/201801994 Inject/Drain Joint/Bursa Major W/O US Completed 05/29/201816498 Inject/Drain Joint/Bursa Major W/O US Completed 04/22/201841279 Injection Single Tendon Origin/Insertion Completed 01/05/201774177 Inject/Drain Joint/Bursa Major W/O US Completed 12/20/201666397 Injection Single Tendon Origin/Insertion Completed 12/27/2015 81424 ECHO Transthorasic Realtime 2D W Doppler & Color Flow Hosp Completed 06/30/2015 58970 Open TX Of Femoral FX,Promimal End,Neck Internal Fixation Completed 06/30/2015 79187 Open TX Of Femoral FX,Promimal End,Neck Internal Fixation Completed 06/29/2015 40192 EKG, Interpretation Only Completed 01/01/2015 55993 ECHO Transthorasic Realtime 2D W Doppler & Color Flow Hosp Completed Encounters Type Date Location Provider Dx Diagnosis Office Visit 12/24/2018 [facility] Gregory Arciniega R55 Syncope and 8:33a Assoc,pc Hospitalists Porsche Cunha,FACP collapse E11.9 Type 2 diabetes mellitus without complications R51 Headache K21.9 Gastro-esophageal reflux disease without esophagitis I10 Essential (primary) hypertension F41.9 Anxiety disorder, unspecified H40.9 Unspecified glaucoma E86.0 Dehydration E87.1 Hypo-osmolality and hyponatremia Office Visit 12/23/2018 8:32a [facility] Rhianna Dill, R79.89 Other specified Assoc,pc MD abnormal Hospitalists findings of blood chemistry R55 [...] Pain in right Of C.M.A. M.D. hip W19.xxxD Unspecified fall, subsequent encounter M16.11 Unilateral primary osteoarthritis, right hip S70.02xD Contusion of left hip, subsequent encounter M70.62 Trochanteric bursitis, left hip M70.61 Trochanteric bursitis, right hip M25.561 Pain in right knee M25.461 Effusion, right knee M17.11 Unilateral primary osteoarthritis, right knee M16.0 Bilateral primary osteoarthritis of hip Office Visit 04/05/2018 3:15p [facility] Callie Arshad M25.551 Pain in right Of C.M.A. M.D. hip M25.552 Pain in left hip Z96.642 Presence of left artificial hip joint M16.11 Unilateral primary osteoarthritis, right hip W19.xxxA Unspecified fall, initial encounter S70.02xA Contusion of left hip, initial encounter Office Visit 11/02/2016 [facility] G43.919 Migraine, unsp, 10:45a Neurologic M.D. intractable, [facility] without status migrainosus F41.9 Anxiety disorder, unspecified Office Visit 07/24/2016 3:00p [facility] Callie Arshad M25.552 Pain in left Of C.M.A. M.D. hip Z96.642 Presence of left artificial hip joint M76.02 Gluteal tendinitis, left hip Office Visit 04/26/2016 [facility] G43.919 Migraine, unsp, 11:15a Neurologic M.D. intractable, [facility] without status migrainosus F41.9 Anxiety disorder, unspecified Office Visit 12/28/2015 9:34a [facility] Mark Méndez, R53.1 Weakness Assoc, Hospitalists M.D. R79.89 Other specified abnormal findings of blood chemistry E86.0 Dehydration Office Visit 12/27/2015 9:33a [facility] Kandis Weeks, R53.1 Weakness Assoc, Hospitalists STAFF [employer]ER R79.89 Other specified abnormal findings of blood chemistry E86.0 Dehydration Office Visit 12/22/2015 [facility] G43.919 Migraine, unsp, 10:45a Neurologic M.D. intractable, [facility] without status migrainosus F41.9 Anxiety disorder, unspecified R25.1 Tremor, unspecified Office Visit 11/05/2015 10:30a Orthopedic Callie Arshad, Z47.1 Aftercare Services Of M.D. following joint C.M.A. 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 intractable, [facility] without status migrainosus F41.9 Anxiety disorder, unspecified Office Visit 08/12/2015 [facility] Oleg Arciniega T85.83xD Hemorrhage due 2:20p Infectious Porsche Zelaya to internal Diseases prosth dev/grft, NEC, subs Office Visit 07/26/2015 [facility] Sue M00.9 Pyogenic 12:59p Assoc,pc Porsche Brown arthritis, Hospitalists unspecified E11.9 Type 2 diabetes mellitus without complications I10 Essential (primary) hypertension Office Visit 07/26/2015 11:53a [facility] Oleg Arciniega L03.116 Cellulitis of For Adri Zelaya M.D. left lower limb Diseases T81.4xxA Infection following a procedure, initial encounter Z96.642 Presence of left artificial hip joint Office Visit 07/25/2015 12:59p [facility] Stevan M00.9 Pyogenic Assoc,santos Avendaño M.D. arthritis, Hospitalists unspecified E11.9 Type 2 diabetes mellitus without complications I10 Essential (primary) hypertension Office Visit 07/24/2015 7:00a Orthopedic Callie L03.116 Cellulitis of [facility] Arshad M.D. left lower limb Office Visit 07/24/2015 12:58p [facility] Lary Mansfield M00.9 Pyogenic Assoc,pc N.P. arthritis, Hospitalists unspecified E11.9 Type 2 diabetes mellitus without complications I10 Essential (primary) hypertension Office Visit 07/02/2015 10:54a [facility] Kandis Weeks, S72.002G Fx unsp Assoc,pc [employer]AFF [employer] OFFICER part of nk Hospitalists [facility] for clos fx w delay heal E11.8 Type 2 diabetes mellitus with unspecified complications E78.5 Hyperlipidemia, unspecified I10 Essential (primary) hypertension Office Visit 07/01/2015 10:54a [facility] Kandis Burch, S72.002G Fx unsp Assoc,pc STAFF [employer] OFFICER part of nk Hospital[facility] subs for clos fx w delay heal E11.8 Type 2 diabetes mellitus with unspecified complications E78.5 Hyperlipidemia, unspecified I10 Essential (primary) hypertension Office [facility]/30[facility]2015 [facility], S72.002G Fx unsp Assoc,pc STAFF [employer] OFFICER part of nk Hospitalists [facility], subs for clos fx w delay heal E11.8 Type 2 diabetes mellitus with unspecified complications E78.5 Hyperlipidemia, unspecified I10 Essential (primary) hypertension Office Visit 06/29/2015 10:52a [facility] Jude Park, S72.002G Fx unsp Assoc,pc N.P. part of nk [facility]ists [facility], subs for clos fx w delay heal E11.8 Type 2 diabetes mellitus with unspecified complications E78.5 Hyperlipidemia, unspecified I10 Essential (primary) hypertension Office Visit 01/01/2015 7:59a [facility] Robert Sandoval, 435.9 TIA Ischemia Assoc,pc Diane.Demian Cerebral Hospitalists Transient Unspec 276.1 Hyposmolality & Or Hyponatremia 401.9 Hypertension Unspec 250.00 Diabetes Mellitus W/O Compl Type II Or Unspec Controlled Office Visit 12/31/2014 [facility] Mini Be, 780.97 Altered 9:52a Clinic M.DBo Mental Status 799.59 Other Signs And Symptoms Involving Cognition 401.9 Hypertension Unspec Office Visit 12/31/2014 7:52a [facility] Janell Hawkins 435.9 TIA Ischemia Assoc,pc Pete, N.P. Cerebral Hospitalists Transient Unspec 276.1 Hyposmolality & Or Hyponatremia 250.00 Diabetes Mellitus W/O Compl Type II Or Unspec Controlled 401.9 Hypertension Unspec Office Visit 11/18/2014 11:00a [facility] Neu[facility]ic Mini Be, 784.0 Headache [facility] Contreras.Demian 300.00 Anxiety State Unspec Office Visit 05/13/2014 1:30p [facility] Neu[facility] Mini Be 784.0 [facility] Contreras.DBo 300.00 Anxiety State Unspec Office Visit 12/17/2013 8:45a [facility] Mere Be 784.0 Head[facility] Morrell 300.00 Anxiety State Unspec Office Visit 08/27/2013 3:00p [facility] Mere Be, 346.91 Migraine Unspec [facility] W/ Intractable W/O Status Migrainosus 300.00 Anxiety State Unspec Office Visit 05/26/2013 1:15p [facility] Mere Be, 346.91 Migraine Unspec [facility] W/ Intractable W/O Status Migrainosus 300.00 Anxiety State Unspec Office Visit 02/26/2013 1:30p [facility] Mini Be, 346.91 Migraine Unspec [facility] W/ Intractable W/O Status Migrainosus 781.2 Gait Abnormality 799.59 Other Signs And Symptoms Involving Cognition Office Visit 12/12/2012 11:45a [facility] Mini Be, 346.91 Migraine Unspec [facility] Morrell W/ Intractable W/O Status Migrainosus 300.00 Anxiety State Unspec Office Visit 10/21/2012 [facility], 346.71 Chronic Migraine 8:45a Neurologic Porsche W/Out Aura, [facility] W/Intractable W/O Migrainosus Office Visit 09/18/2012 [facility] Mini Be, 346.91 Migraine Unspec W/ 8:30a Neurologic Porsche Intractable W/O [facility] Status Migrainosus 300.00 Anxiety State Unspec Office Visit 07/06/2012 [facility] Alexsander 009.1 Colitis Enteritis & 1:48p Assoc,santos Reyes M.D. Gastroenteritis Hospitalists Presumed Infectious Orig 250.00 Diabetes Mellitus W/O Compl Type II Or Unspec Controlled 401.9 Hypertension Unspec Office Visit 07/05/2012 [facility] Alexsander 009.1 Colitis Enteritis & 1:47p Assocsantos M.D. Gastroenteritis Hospitalists Presumed Infectious Orig 250.00 Diabetes Mellitus W/O Compl Type II Or Unspec Controlled 401.9 Hypertension Unspec Office Visit 07/04/2012 [facility] Jude 009.1 Colitis Enteritis & 1:48p Assoc,santos [place], N.P. Gastroenteritis Hospitalists Presumed Infectious Orig 250.00 Diabetes Mellitus W/O Compl Type II Or Unspec Controlled 401.9 Hypertension Unspec Office Visit 07/01/2012 2:45p [facility] Neu[facility] Mini Be, 346.91 Migraine Unspec Services [facility] Morrell W/ Intractable W/O Status Migrainosus Office Visit 04/29/2012 11:00a [facility] Neu[facility] Mini Be, 784.0 Headache Services Of [facility] Morrell Plan of Treatment Future Appointment(s):01/20/2019 10:00 am - Callie Arshad M.D. at [facility]/13/2019 - Callie Arshad M.D.M25.562 Pain in left kneeNew Xrays:Knee 3 Views LT, Ordered: 01/13/19Follow up:Follow up: 1 weekM25.462 Effusion, left kneeM17.12 Unilateral primary osteoarthritis, left knee
[2019-02-01] MEDS ORDERED: NS 0.9% 1000 ML** 1,000 ML IV ONE ×2 (11:36→12:51)
[2019-02-01] MEDS ORDERED: Ketorolac INJ* 30 MG/ML 1 ML VIAL IV PUSH ONE (11:36)
[2019-02-01] MEDS ORDERED: Ondansetron INJ* 2 MG/ML VIAL IV ONE (11:36)
--- NOTE | 2019-02-01 11:52 | ED ---
GI/ HPI - HPI Summary HPI Summary: This patient is a 73 year old F presenting to ED with a chief complaint of NVD since 2 months ago. Patient was seen in the ER two weeks ago for the same symptoms. Prior to that visit she was shaking and lightheaded. She did not give a stool sample and was given nausea medicine but no antibiotics. The patient rates the pain 8/10 in severity. She describes her symptoms as different from a typical IBS exacerbation. Symptoms aggravated by nothing. Symptoms alleviated by nothing. Patient reports nausea, diarrhea, vomiting, stomachache, chronic headache, aching knees. Patient denies blood in vomit and stool, fever, chills, difficulty breathing, palpitations. She did not eat today. Last bowel movement was this morning. Patient believes she also has a UTI again. PMHx of IBS, DM, HTN, GERD, GI bleed, ulcer, but no Crohns or ulcerative colitis. PSHx: hysterectomy, sinus surgery, bleeding ulcer in stomach. FHx of cardiac disease. She does not drink alcohol, smoke tobacco, or use substances. - History of Current Complaint Chief Complaint: EDNauseaVomitDiarrh Time Seen by Provider: 02/01/19 11:18 Stated Complaint: VOMITING/DIARRHEA PER PT Hx Obtained From: Patient Onset/Duration: Started Weeks Ago - 2 months, Still Present Timing: Constant Severity: Severe Current Severity: Severe Pain Intensity: 8 Location of Pain: Diffuse Associated Signs and Symptoms: Positive: Negative - Blood in vomit or stool, fevers, chills, palpitations, difficulty breathing, Nausea, Vomiting, Abdominal Pain, Other: - Headache, aching knees Aggravating Factor(s): Nothing Alleviating Factor(s): Nothing - Additional Pertinent History Primary Care Physician: [id number] - Allergy/Home Medications Allergies/Adverse Reactions: Allergies Allergy/AdvReac Type Severity Reaction Status Date / Time ciprofloxacin Allergy Muscle Ache Verified 02/01/19 10:25 Iodinated Contrast- Oral and Allergy Rash Verified 02/01/19 10:25 IV Dye latex Allergy Rash Verified 02/01/19 10:25 Sulfa (Sulfonamide Allergy Rash Verified 02/01/19 10:25 Antibiotics) amoxicillin AdvReac GI Upset Verified 02/01/19 10:25 cephalexin AdvReac GI Upset Verified 02/01/19 10:25 clarithromycin AdvReac GI Upset Verified 02/01/19 10:25 clavulanic acid AdvReac GI Upset Verified 02/01/19 10:25 [From Augmentin] codeine AdvReac GI Upset Verified 02/01/19 10:25 ibuprofen AdvReac Hx of Verified 02/01/19 10:25 ulcers levofloxacin [From Levaquin] AdvReac GI Upset Verified 02/01/19 10:25 oxycodone AdvReac GI Upset Verified 02/01/19 10:25 prednisone AdvReac Shakes Verified 02/01/19 10:25 ENVIRONMENT/SEASONAL Allergy ITCHY Uncoded 12/22/18 08:29 WATERY EYES PMH/Surg Hx/FS Hx/Imm Hx Endocrine/Hematology History: Reports: Hx Blood Transfusions, Hx Diabetes - TYPE II Denies: Hx Anticoagulant Therapy, Hx Blood Disorders, Hx Bone Marrow Disease , Hx Systemic Lupus Erythematosus, Hx Sickle Cell Disease, Hx Thyroid Disease, Hx Anemia, Hx Unexplained Bleeding Cardiovascular History: Reports: Hx Hypertension Denies: Hx Aneurysm, Hx Angina, Hx Angioplasty, Hx Auto Implanted Cardiovert Defib, Hx Cardiac Arrest, Hx Cardiomegaly, Hx Congenital Heart Disease, Hx Congestive Heart Failure, Hx Coronary Artery Disease, Hx Deep Vein Thrombosis, Hx Embolism, Hx Hypotension, Hx Pacemaker/ICD, Hx Peripheral Vascular Disease, Hx Rheumatic Fever, Hx Syncope, Other Cardiovascular Problems/Disorders Respiratory History: Reports: Other Respiratory Problems/Disorders - SINUS INFECTION Denies: Hx Asthma, Hx Chronic Obstructive Pulmonary Disease (COPD) GI History: Reports: Hx Gastroesophageal Reflux Disease, Hx Gastrointestinal Bleed, Hx Irritable Bowel, Hx Ulcer - gastric ulcer, Other GI Disorders - ISCHEMIC COLITIS Denies: Hx Cirrhosis, Hx Crohn's Disease, Hx Diverticulosis, Hx Gall Bladder Disease, Hx Hiatal Hernia, Hx Jaundice, Hx Obstructive Bowel, Hx Ileostomy, Hx Pyloric Stenosis History: Denies: Hx Renal Disease, Other Problems/Disorders - DENIES Musculoskeletal History: Reports: Hx Arthritis - shoulders, Hx Orthopedic Injury - left hip fracture Denies: Hx Back Problems, Hx Bursitis, Hx Congenital Bone Abnormalities, Hx Fibromyalgia, Hx Gout, Hx Osteoporosis, Hx Scoliosis, Hx Tendonitis, Other Musculoskeletal History Sensory History: Reports: Hx Cataracts - surgery 11/23/15, Hx Glaucoma, Hx Vision Problem, Hx Hearing Aid - NOT WEARING Denies: Hx Contacts or Glasses, Hx Eye Injury, Hx Eye Prosthesis, Hx Legally Blind, Hx Macular Degeneration, Hx Deafness, Hx Hearing Problem, Other Sensory Impairments Opthamlomology History: Reports: Hx Cataracts - surgery 11/23/15, Hx Glaucoma, Hx Vision Problem Denies: Hx Contacts or Glasses, Hx Eye Injury, Hx Eye Prosthesis, Hx Legally Blind, Hx Macular Degeneration, Other Sensory Impairments Neurological History: Reports: Hx Headaches - chronic, Hx Nerve Disease - left leg DUE TO SURGERY Denies: Hx Dementia, Hx Developmental Delay, Hx Migraine, Hx Seizures, Hx Spinal Cord Injury, Hx Transient Ischemic Attacks (TIA), Other Neuro Impairments /Disorders Psychiatric History: Denies: Hx Anxiety - ON MED FOR RODRIGUEZ, Hx Panic Disorder, Hx Substance Abuse - Cancer History Cancer Type, Location and Year: bleeding ulcer, colitis Hx Chemotherapy: No Hx Radiation Therapy: No - Surgical History Surgery Procedure, Year, and Place: TOTAL HYSTERECTOMY, 1979;. SINUS SURGERY;. 06/30/15 L HIP PARTIAL REPLACEMENT;. BILATERAL CATARACTS/GLAUCOMA;. LAZER SURGERY ON EYES;. SURGERY FOR BLEEDING ULCER IN STOMACH;. TONSILECTOMY Hx Anesthesia Reactions: No Infectious Disease History: No Infectious Disease History: Reports: Hx of Known/Suspected MRSA, Hx Shingles, History Other Infectious Disease - gerardia Denies: Hx Clostridium Difficile - R/o C.diff, Hx Hepatitis, Hx Human Immunodeficiency Virus (HIV), Hx Tuberculosis, Hx Known/Suspected VRE, Hx Known/ Suspected VRSA, Traveled Outside the [place] in Last 30 Days - Family History Known Family History: Positive: Cardiac Disease - Social History Alcohol Use: None Hx Substance Use: No Substance Use Type: Reports: None Hx Tobacco Use: No Smoking Status (MU): Never Smoked Tobacco Review of Systems Negative: Fever, Chills Negative: Palpitations Negative: Shortness Of Breath Gastrointestinal: Negative - Blood in vomit or stool Positive: Abdominal Pain, Vomiting, Diarrhea, Nausea Positive: Arthralgia - Aching knees Positive: Headache All Other Systems Reviewed And Are Negative: Yes Physical Exam - Summary Physical Exam Summary: GENERAL: Patient is a well-developed and nourished F who is lying comfortable in the stretcher. Patient is not in any acute respiratory distress. HEAD AND FACE: Normocephalic EYES: PERRLA, EOMI x 2. EARS: Hearing grossly intact. MOUTH: Dry mucous membranes NECK: Supple, trachea is midline, no adenopathy, no JVD, no carotid bruit. CHEST: Symmetric, no tenderness at palpation LUNGS: Clear to auscultation bilaterally. No wheezing or crackles. CVS: Regular rate and rhythm, S1 and S2 present, no murmurs or gallops appreciated. ABDOMEN: Soft, non-tender. Bowel sounds are normal. No abnormal abdominal pulsations. EXTREMITIES: Full ROM in all major joints, no edema, no cyanosis or clubbing. NEURO: Alert and oriented x 3. No acute neurological deficits. Speech is normal and follows commands. SKIN: Dry and warm Triage Information Reviewed: Yes Vital Signs On Initial Exam: Initial Vitals Temp Pulse Resp BP Pulse Ox 97.9 F 99 16 157/80 95 02/01/19 10:21 02/01/19 10:21 02/01/19 10:21 02/01/19 10:21 02/01/19 10:21 Vital Signs Reviewed: Yes Diagnostics - Vital Signs Vital Signs Temp Pulse Resp BP Pulse Ox 02/01/19 10:21 97.9 F 99 16 157/80 95 - Laboratory Result Diagrams: 02/01/19 12:13 02/01/19 12:13 Lab Statement: Any lab studies that have been ordered have been reviewed, and results considered in the medical decision making process. Re-Evaluation - Re-Evaluation First Eval Re-Evaluation Time: 16:53 Change: Improved Comment: Patient is able to tolerate PO without difficulty, much approved. She has a scheduled appointment with GI on Sunday. Patient will be discharged with diagnosis of diarrhea. Patient understands and agrees with this plan. GIGU Course/Dx - Course Course Of Treatment: This patient is a 73 year old F presenting to ED with a chief complaint of NVD since 2 months ago. In the ED course, patient was given Toradol, fluids, and Zofran. Bloodwork and UA obtained. Following treatment, patient wasa ble to tolerate PO without difficulty and is much approved. Patient will be discharged home with diagnosis of diarrhea. I discussed results with patient, and she reports feeling better. She is hemodynamically stable and safe for discharge. Strict return precautions given and she will otherwise follow up with GI. - Diagnoses Provider Diagnoses: Diarrhea Discharge - Sign-Out/Discharge Documenting (check all that apply): Patient Departure - Discharge Patient Received Moderate/Deep Sedation with Procedure: No - Discharge Plan Condition: Stable Disposition: HOME Patient Education Materials: Acute Diarrhea (ED) Referrals: Frank Black MD [Medical Doctor] - 2 Days Additional Instructions: Follow up with LÁZARO Curiel, in 1-3 days. RETURN TO THE EMERGENCY DEPARTMENT FOR CHANGING OR WORSENING SYMPTOMS. - Billing Disposition and Condition Condition: STABLE Disposition: Home - Attestation Statements Document Initiated by Scribe: Yes Documenting Scribe: Driss Bearden Provider For Whom Scribe is Documenting (Include Credential): Joe Montero MD Scribe Attestation: Driss Mason, scribed for Joe Montero MD on 02/01/19 at 2044. Scribe Documentation Reviewed: Yes Provider Attestation: The documentation as recorded by the Driss skinner accurately reflects the service I personally performed and the decisions made by me, Joe Montero MD Status of Scribe Document: Viewed
[2019-02-01 12:25] LABS: ABS Eosinophils 0.1 10^3/ul (0-0.6); ABS Lymphocytes 1.2 10^3/ul (1.0-4.8); ABS Monocytes 0.4 10^3/ul (0-0.8); ABS Neutrophils 6.6 10^3/ul (1.5-7.7); Hematocrit 38 % (35-47); Hemoglobin 12.7 g/dL (12.0-16.0); Lymphocyte % 14.7 %; Mean Corpuscular HGB Conc 33 g/dL (31-36); Mean Corpuscular Hemoglobin 28 pg (27-31); Mean Corpuscular Volume 83 fL (80-97); Mean Platelet Volume 7.3 fL (7.4-10.4); Platelet Count 407 10^3/uL (150-450); Red Blood Count 4.63 10^6 /uL (3.70-4.87); Red Cell Distribution Width 15 % (10.5-15); White Blood Count 8.4 10^3/uL (3.5-10.8)
[2019-02-01 12:41] LABS: Albumin 4.2 g/dL (3.2-5.2); Albumin/Globulin Ratio 1.5 (1-3); BUN/Creatinine Ratio 13.4 (8-20); C Reactive Protein 8.13 mg/L (<8.01); Calcium 9.7 mg/dL (8.6-10.3); EGFR African American 57.4 (>60); EGFR Non-African American 47.4 (>60); Globulin 2.8 g/dL (2-4); Potassium 4.3 mmol/L (3.5-5.0); Total Bilirubin 0.4 mg/dL (0.2-1.0)
[2019-02-01 13:03] LABS: Urine Appearance Clear; Urine Bacteria 1+ (Absent); Urine Bilirubin Negative (Negative); Urine Blood 1+ (Negative); Urine Color Amber; Urine Glucose 1+(50 mg/dL) (Negative); Urine Ketones Negative (Negative); Urine Nitrite Negative (Negative); Urine Protein Negative (Negative); Urine Red Blood Cell Absent (Absent); Urine Specific Gravity 1.003 (1.010-1.030); Urine Squamous Epithelial Cell Present (Absent); Urine Urobilinogen Negative (Negative); Urine White Blood Cell Trace(0-5/hpf) (Absent)
[2019-02-01 17:04] VITALS: BP 132/68
--- NOTE | 2019-02-04 08:43 | PN ---
Progress Note - Progress Note Date of Service: 02/01/19 Note: Patient urine culture final grew Klebsiella pneumonia 100,000 Patient was not placed on antibiotics prior to discharge Call patient with results at 8:30 AM on 02/04/[address] her on ciprofloxacin which is sensitive to organism as she has several allergies Patient states she does not recall her reaction but believes this was muscle aches This was listed as an allergy We have agreed we would try this medication at this time and she will discontinue his medication if it causes her any adverse effects She has a close follow-up with her GI specialist tomorrow
== END 2019-02-01 17:04 | disposition home or self-care (01) ==
LOC: ED 10:12
DX: R19.7 Diarrhea, unspecified (principal); R11.2 Nausea with vomiting, unspecified; R10.9 Unspecified abdominal pain; R51 Headache; Z88.0 Allergy status to penicillin; Z88.2 Allergy status to sulfonamides; Z86.14 Personal history of Methicillin resistant Staphylococcus aureus infection
CPT/HCPCS: 36415; 80053; 81003; 81015; 83605; 83690; 85025; 86140; 87040; 87077; 87086; 87186; 96374; 96375; 99284; J1885; J2405

== ENCOUNTER 2019-08-27 15:10 | Emergency (ER) | payer BC ==
[2019-08-27] MEDS ORDERED: Acetaminophen TAB* 325 MG PO ONE (15:39)
--- NOTE | 2019-08-27 15:42 | ED ---
Head Injury - HPI Summary HPI Summary: Patient is a 74-year-old female who presents emergency department for evaluation of a head injury that occurred after a mechanical fall. Patient states she was walking into her chairman when she slipped on "slush" and fell backwards striking her head on the sidewalk. Patient denies loss of consciousness. She denies neck pain, chest pain, shortness of breath, dizziness. Patient was able to get up off the ground by herself and came into the ER with her . She does note pain to her left buttocks. She is not anticoagulated. Symptoms are moderate in severity. No current modifying factors. Patient notes last tetanus immunization was within 5-10 years. - History Of Current Complaint Chief Complaint: EDFall Stated Complaint: FALL HEAD INJURY Time Seen by Provider: 08/27/19 15:23 Hx Obtained From: Patient Pain Intensity: 8 - Allergies/Home Medications Allergies/Adverse Reactions: Allergies Allergy/AdvReac Type Severity Reaction Status Date / Time ciprofloxacin Allergy Muscle Ache Verified 08/27/19 15:17 Iodinated Contrast Media Allergy Rash Verified 08/27/19 15:17 [Iodinated Contrast- Oral and IV Dye] latex Allergy Rash Verified 08/27/19 15:17 Sulfa (Sulfonamide Allergy Rash Verified 08/27/19 15:17 Antibiotics) amoxicillin AdvReac GI Upset Verified 08/27/19 15:17 cephalexin AdvReac GI Upset Verified 08/27/19 15:17 clarithromycin AdvReac GI Upset Verified 08/27/19 15:17 clavulanic acid AdvReac GI Upset Verified 08/27/19 15:17 [From Augmentin] codeine AdvReac GI Upset Verified 08/27/19 15:17 ibuprofen AdvReac Hx of Verified 08/27/19 15:17 ulcers levofloxacin [From Levaquin] AdvReac GI Upset Verified 08/27/19 15:17 oxycodone AdvReac GI Upset Verified 08/27/19 15:17 prednisone AdvReac Shakes Verified 08/27/19 15:17 ENVIRONMENT/SEASONAL Allergy ITCHY Uncoded 12/22/18 08:29 WATERY EYES PMH/Surg Hx/FS Hx/Imm Hx Previously Healthy: Yes Endocrine/Hematology History: Reports: Hx Blood Transfusions, Hx Diabetes - TYPE II Denies: Hx Anticoagulant Therapy, Hx Blood Disorders, Hx Bone Marrow Disease , Hx Systemic Lupus Erythematosus, Hx Sickle Cell Disease, Hx Thyroid Disease, Hx Anemia, Hx Unexplained Bleeding Cardiovascular History: Reports: Hx Hypertension Denies: Hx Aneurysm, Hx Angina, Hx Angioplasty, Hx Auto Implanted Cardiovert Defib, Hx Cardiac Arrest, Hx Cardiomegaly, Hx Congenital Heart Disease, Hx Congestive Heart Failure, Hx Coronary Artery Disease, Hx Deep Vein Thrombosis, Hx Embolism, Hx Hypotension, Hx Pacemaker/ICD, Hx Peripheral Vascular Disease, Hx Rheumatic Fever, Hx Syncope, Other Cardiovascular Problems/Disorders Respiratory History: Reports: Other Respiratory Problems/Disorders - SINUS INFECTION Denies: Hx Asthma, Hx Chronic Obstructive Pulmonary Disease (COPD) GI History: Reports: Hx Gastroesophageal Reflux Disease, Hx Gastrointestinal Bleed, Hx Irritable Bowel, Hx Ulcer - gastric ulcer, Other GI Disorders - ISCHEMIC COLITIS Denies: Hx Cirrhosis, Hx Crohn's Disease, Hx Diverticulosis, Hx Gall Bladder Disease, Hx Hiatal Hernia, Hx Jaundice, Hx Obstructive Bowel, Hx Ileostomy, Hx Pyloric Stenosis History: Denies: Hx Renal Disease, Other Problems/Disorders - DENIES Musculoskeletal History: Reports: Hx Arthritis - shoulders, Hx Orthopedic Injury - left hip fracture Denies: Hx Back Problems, Hx Bursitis, Hx Congenital Bone Abnormalities, Hx Fibromyalgia, Hx Gout, Hx Osteoporosis, Hx Scoliosis, Hx Tendonitis, Other Musculoskeletal History Sensory History: Reports: Hx Cataracts - surgery 11/23/15, Hx Glaucoma, Hx Vision Problem, Hx Hearing Aid - NOT WEARING Denies: Hx Contacts or Glasses, Hx Eye Injury, Hx Eye Prosthesis, Hx Legally Blind, Hx Macular Degeneration, Hx Deafness, Hx Hearing Problem, Other Sensory Impairments Opthamlomology History: Reports: Hx Cataracts - surgery 11/23/15, Hx Glaucoma, Hx Vision Problem Denies: Hx Contacts or Glasses, Hx Eye Injury, Hx Eye Prosthesis, Hx Legally Blind, Hx Macular Degeneration, Other Sensory Impairments Neurological History: Reports: Hx Headaches - chronic, Hx Nerve Disease - left leg DUE TO SURGERY Denies: Hx Dementia, Hx Developmental Delay, Hx Migraine, Hx Seizures, Hx Spinal Cord Injury, Hx Transient Ischemic Attacks (TIA), Other Neuro Impairments /Disorders Psychiatric History: Denies: Hx Anxiety - ON MED FOR RODRIGUEZ, Hx Panic Disorder, Hx Substance Abuse - Cancer History Cancer Type, Location and Year: bleeding ulcer, colitis Hx Chemotherapy: No Hx Radiation Therapy: No - Surgical History Surgery Procedure, Year, and Place: TOTAL HYSTERECTOMY, 1979;. SINUS SURGERY;. 06/30/15 L HIP PARTIAL REPLACEMENT;. BILATERAL CATARACTS/GLAUCOMA;. LAZER SURGERY ON EYES;. SURGERY FOR BLEEDING ULCER IN STOMACH;. TONSILECTOMY Hx Anesthesia Reactions: No Infectious Disease History: No Infectious Disease History: Reports: Hx of Known/Suspected MRSA, Hx Shingles, History Other Infectious Disease - gerardia Denies: Hx Clostridium Difficile - R/o C.diff, Hx Hepatitis, Hx Human Immunodeficiency Virus (HIV), Hx Tuberculosis, Hx Known/Suspected VRE, Hx Known/ Suspected VRSA, Traveled Outside the [place] in Last 30 Days - Family History Known Family History: Positive: Cardiac Disease, Non-Contributory - Social History Occupation: Retired Lives: With Family Alcohol Use: None Hx Substance Use: No Substance Use Type: Reports: None Hx Tobacco Use: No Smoking Status (MU): Never Smoked Tobacco Review of Systems Eyes: Negative Negative: Photophobia, Blurred Vision, Diplopia ENT: Negative Cardiovascular: Negative Negative: Palpitations, Chest Pain Respiratory: Negative Negative: Shortness Of Breath Gastrointestinal: Negative Negative: Abdominal Pain Positive: Other - left buttocks pain Positive: Bruising Positive: Headache. Negative: Weakness, Paresthesia, Numbness, Syncope All Other Systems Reviewed And Are Negative: Yes Physical Exam Triage Information Reviewed: Yes Vital Signs On Initial Exam: Initial Vitals Temp Pulse Resp BP Pulse Ox 98.2 F 78 16 196/106 97 08/27/19 15:14 08/27/19 15:14 08/27/19 15:14 08/27/19 15:14 08/27/19 15:14 Vital Signs Reviewed: Yes Appearance: Positive: Well-Appearing - Pt. sitting on side of bed in NAD. Pleasant. Answers questions appropriately. Skin: Positive: Warm, Dry Head/Face: Positive: Other - Large hematoma noted to lateral left scalp. Overlying superficial abrasion. Eyes: Positive: Normal, EOMI, ESTHER, Conjunctiva Clear Neck: Positive: Supple, Nontender Respiratory/Lung Sounds: Positive: Clear to Auscultation, Breath Sounds Present Cardiovascular: Positive: Normal, RRR Musculoskeletal: Positive: Normal, Strength/ROM Intact, Other - No midline vertebral tenderness. Pain over left buttocks. Neurological: Positive: Normal, Alert, Oriented to Person Place, Time, CN Intact II-III Psychiatric: Positive: Affect/Mood Appropriate Procedures - Sedation Patient Received Moderate/Deep Sedation with Procedure: No Diagnostics - Vital Signs Vital Signs Temp Pulse Resp BP Pulse Ox 08/27/19 15:14 98.2 F 78 16 196/106 97 - Laboratory Lab Statement: Any lab studies that have been ordered have been reviewed, and results considered in the medical decision making process. Head Injury Course/Dx Course Of Treatment: Patient with head injury and left hip injury after mechanical fall. Scalp wound was cleaned and nonsuturable. Patient was given a dose of Tylenol for pain and ice pack for head. Brain and neck CT negative for acute findings, reading per radiology. Hip xray negative for acute findings per radiology. Results discussed. Will dc home. To ice areas intermittently. Tylenol for pain as directed. Close f.u with pcp and return to er if sxs change or worsen. - Diagnoses Differential Diagnosis/HQI/PQRI: Concussion Without LOC, Contusion, Hematoma, Intracranial Bleed, Laceration, Skull Fracture Provider Diagnoses: Head injury, Hip pain, Scalp hematoma Discharge ED - Sign-Out/Discharge Documenting (check all that apply): Patient Departure - Discharge Plan Condition: Good Disposition: HOME Patient Education Materials: Head Injury (ED), Hip Pain (ED) Referrals: Austyn Boyd MD [Primary Care Provider] - Additional Instructions: Follow up with PCP for recheck within one week Ice intermittently Tylenol for pain as directed Keep wound clean and dry Return to ER if symptoms change or worsen - Billing Disposition and Condition Condition: GOOD Disposition: Home - Attestation Statements Provider Attestation: I was available for consult. This patient was seen by the BERENICE. The patient was not presented to, seen by, or examined by me. David Sullivan MD
[2019-08-27 18:22] VITALS: BP 127/56
== END 2019-08-27 18:21 | disposition home or self-care (01) ==
LOC: ED 15:10
DX: S00.03XA Contusion of scalp, initial encounter (principal); M25.552 Pain in left hip; W00.0XXA Fall on same level due to ice and snow, initial encounter; Y92.89 Other specified places as the place of occurrence of the external cause; E11.9 Type 2 diabetes mellitus without complications; I10 Essential (primary) hypertension; K21.9 Gastro-esophageal reflux disease without esophagitis; Z90.710 Acquired absence of both cervix and uterus; Z96.642 Presence of left artificial hip joint; Z88.5 Allergy status to narcotic agent; Z88.0 Allergy status to penicillin; Z88.2 Allergy status to sulfonamides; Z88.8 Allergy status to other drugs, medicaments and biological substances; Z88.1 Allergy status to other antibiotic agents; Z91.041 Radiographic dye allergy status; Z91.040 Latex allergy status
CPT/HCPCS: 70450; 72125; 99281; A9270-GY

== ENCOUNTER 2019-09-10 12:48 | Emergency (ER) | payer BC ==
--- OUTSIDE RECORDS SUMMARY | 2019-09-10 13:06 | XMS REPORT | Continuity of Care Document ---
:1945 External Reference #:[id number] Author Name Ottoniel Moon, OD Address [address] [place] [address] Care Team Providers Name Role Phone Deb PEARCE, [facility] Care Team Information Emergency Worker [phone] Problems Active Problems Provider Date Type 2 [...] left eye Red Tom M.D. Onset: 02/12/2017 Social History Type Date Description Comments Sex Unknown ETOH Use Rarely consumes alcohol Tobacco Use Start: Unknown Patient has never smoked Smoking Status Reviewed: 08/25/19 Patient has never smoked Allergies, Adverse Reactions, Alerts Active Allergies Reaction Severity Comments Date Codeine 09/17/2013 Sulfa Antibiotics 09/17/2013 Biaxin 09/17/2013 Levaquin 09/17/2013 Augmentin 09/17/2013 Cipro 09/14/2015 Prednisone 10/08/2018 Medications Active Medications SIG Qnty Indications Ordering Provider Date Timolol Maleate one drop twice a 15ml Ottoniel Moon, OD 04/17/2019 0.5% day both eyes Solution Gabapentin Haile PEARCE, Mini 300mg Capsules Sertraline HCL Haile PEARCE, Mini 50mg Tablets Glucophage Deb PEARCE, Austyn 500mg Tablets Glyburide Deb PEARCE, Austyn 2.5mg Tablets Lisinopril Deb PEARCE, Austyn 10mg Tablets Onetouch Ultra Blue Deb PEARCE, Austyn Strips Escitalopram Oxalate Haile PEARCE, Mini 5mg Tablets Zyrtec Allergy Unknown 10mg Capsules Amlodipine Besylate Deb PEARCE, Austyn 2.5mg Tablets Immunizations Description No Information Available Vital Signs Date Vital Result Comment 05/15/2019 11:16am Intraocular Pressure Right Eye 13 mmHg Intraocular Pressure Left Eye 14 mmHg 01/07/2019 10:45am Intraocular Pressure Right Eye 17 mmHg Intraocular Pressure Left Eye 16 mmHg Results Description No Information Available Procedures Date Code Description Status 08/25/2019 37789 Visual Field Exam Extended, Unilateral Or Bilateral Completed 08/25/2019 97557 Eye Exam Est Intermediate Completed 05/15/2019 35603 Oct Retina Completed 05/15/2019 40052 Eye Exam Est Intermediate Completed Medical Devices Description No Information Available Encounters Description No Information Available Assessments Date Code Description Provider 08/25/2019 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
--- NOTE | 2019-09-10 13:14 | ED ---
Abdominal Pain/Female - HPI Summary HPI Summary: This pt is a 74 Y/O F presenting to [facility] with a CC of abdominal pain rated a 7/ 10 in severity with associated rectum bleeding that started on 09/09/19 following a fall where she landed on her buttocks. She states that prior to the fall she felt very lightheaded and became dizzy. Her states that she hit the wall with her head. She states that last night she had diarrhea with associated bloody stools. She states that the bleeding worsened and began occurring while she urinated but states that the blood still came out of her rectum. She denies any N/V, headaches, CP, and SOB. She states that she has no aggravating or alleviating factors. She has a PMHx of DM, HTN, and chronic headaches. - History of Current Complaint Chief Complaint: EDGIBleed Stated Complaint: POSS BLEEDING ULCER PER PT Time Seen by Provider: 09/10/19 13:01 Hx Obtained From: Patient Onset/Duration: Sudden Onset, Lasting Days - 1, Still Present Timing: Constant Severity Initially: Moderate Severity Currently: Moderate Pain Intensity: 7 Pain Scale Used: 0-10 Numeric Location: Diffuse Radiates: No Aggravating Factor(s): Nothing Alleviating Factor(s): Nothing Associated Signs and Symptoms: Positive: Negative - SOB, Diarrhea - w/ bloody stool, Other: - headaches. Negative: Chest Pain, Nausea, Vomiting Allergies/Adverse Reactions: Allergies Allergy/AdvReac Type Severity Reaction Status Date / Time ciprofloxacin Allergy Muscle Ache Verified 09/10/19 12:56 Iodinated Contrast Media Allergy Rash Verified 09/10/19 12:56 [Iodinated Contrast- Oral and IV Dye] latex Allergy Rash Verified 09/10/19 12:56 Sulfa (Sulfonamide Allergy Rash Verified 09/10/19 12:56 Antibiotics) amoxicillin AdvReac GI Upset Verified 09/10/19 12:56 cephalexin AdvReac GI Upset Verified 09/10/19 12:56 clarithromycin AdvReac GI Upset Verified 09/10/19 12:56 clavulanic acid AdvReac GI Upset Verified 09/10/19 12:56 [From Augmentin] codeine AdvReac GI Upset Verified 09/10/19 12:56 ibuprofen AdvReac Hx of Verified 09/10/19 12:56 ulcers levofloxacin [From Levaquin] AdvReac GI Upset Verified 09/10/19 12:56 oxycodone AdvReac GI Upset Verified 09/10/19 12:56 prednisone AdvReac Shakes Verified 09/10/19 12:56 ENVIRONMENT/SEASONAL Allergy ITCHY Uncoded 12/22/18 08:29 WATERY EYES PMH/Surg Hx/FS Hx/Imm Hx Previously Healthy: Yes Endocrine/Hematology History: Reports: Hx Blood Transfusions, Hx Diabetes - TYPE II Denies: Hx Anticoagulant Therapy, Hx Blood Disorders, Hx Bone Marrow Disease , Hx Systemic Lupus Erythematosus, Hx Sickle Cell Disease, Hx Thyroid Disease, Hx Anemia, Hx Unexplained Bleeding Cardiovascular History: Reports: Hx Hypertension Denies: Hx Aneurysm, Hx Angina, Hx Angioplasty, Hx Auto Implanted Cardiovert Defib, Hx Cardiac Arrest, Hx Cardiomegaly, Hx Congenital Heart Disease, Hx Congestive Heart Failure, Hx Coronary Artery Disease, Hx Deep Vein Thrombosis, Hx Embolism, Hx Hypotension, Hx Pacemaker/ICD, Hx Peripheral Vascular Disease, Hx Rheumatic Fever, Hx Syncope, Other Cardiovascular Problems/Disorders Respiratory History: Reports: Other Respiratory Problems/Disorders - SINUS INFECTION Denies: Hx Asthma, Hx Chronic Obstructive Pulmonary Disease (COPD) GI History: Reports: Hx Gastroesophageal Reflux Disease, Hx Gastrointestinal Bleed, Hx Irritable Bowel, Hx Ulcer - gastric ulcer, Other GI Disorders - ISCHEMIC COLITIS Denies: Hx Cirrhosis, Hx Crohn's Disease, Hx Diverticulosis, Hx Gall Bladder Disease, Hx Hiatal Hernia, Hx Jaundice, Hx Obstructive Bowel, Hx Ileostomy, Hx Pyloric Stenosis History: Denies: Hx Renal Disease, Other Problems/Disorders - DENIES Musculoskeletal History: Reports: Hx Arthritis - shoulders, Hx Orthopedic Injury - left hip fracture Denies: Hx Back Problems, Hx Bursitis, Hx Congenital Bone Abnormalities, Hx Fibromyalgia, Hx Gout, Hx Osteoporosis, Hx Scoliosis, Hx Tendonitis, Other Musculoskeletal History Sensory History: Reports: Hx Cataracts - surgery 11/23/15, Hx Glaucoma, Hx Vision Problem, Hx Hearing Aid - NOT WEARING Denies: Hx Contacts or Glasses, Hx Eye Injury, Hx Eye Prosthesis, Hx Legally Blind, Hx Macular Degeneration, Hx Deafness, Hx Hearing Problem, Other Sensory Impairments Opthamlomology History: Reports: Hx Cataracts - surgery 11/23/15, Hx Glaucoma, Hx Vision Problem Denies: Hx Contacts or Glasses, Hx Eye Injury, Hx Eye Prosthesis, Hx Legally Blind, Hx Macular Degeneration, Other Sensory Impairments Neurological History: Reports: Hx Headaches - chronic, Hx Nerve Disease - left leg DUE TO SURGERY Denies: Hx Dementia, Hx Developmental Delay, Hx Migraine, Hx Seizures, Hx Spinal Cord Injury, Hx Transient Ischemic Attacks (TIA), Other Neuro Impairments /Disorders Psychiatric History: Denies: Hx Anxiety - ON MED FOR RODRIGUEZ, Hx Panic Disorder, Hx Substance Abuse - Cancer History Cancer Type, Location and Year: bleeding ulcer, colitis Hx Chemotherapy: No Hx Radiation Therapy: No - Surgical History Surgery Procedure, Year, and Place: TOTAL HYSTERECTOMY, 1979;. SINUS SURGERY;. 06/30/15 L HIP PARTIAL REPLACEMENT;. BILATERAL CATARACTS/GLAUCOMA;. LAZER SURGERY ON EYES;. SURGERY FOR BLEEDING ULCER IN STOMACH;. TONSILECTOMY Hx Anesthesia Reactions: No Infectious Disease History: No Infectious Disease History: Reports: Hx of Known/Suspected MRSA, Hx Shingles, History Other Infectious Disease - gerardia Denies: Hx Clostridium Difficile - R/o C.diff, Hx Hepatitis, Hx Human Immunodeficiency Virus (HIV), Hx Tuberculosis, Hx Known/Suspected VRE, Hx Known/ Suspected VRSA, Traveled Outside the [place] in Last 30 Days - Family History Known Family History: Positive: Cardiac Disease, Non-Contributory - Social History Occupation: Retired Lives: With Family Alcohol Use: None Hx Substance Use: No Substance Use Type: Reports: None Hx Tobacco Use: No Smoking Status (MU): Never Smoked Tobacco Household Exposure: No Review of Systems Negative: Chest Pain Negative: Shortness Of Breath Positive: Abdominal Pain, Diarrhea - w/ bloody stools. Negative: Vomiting, Nausea Negative: Headache All Other Systems Reviewed And Are Negative: Yes Physical Exam - Summary Physical Exam Summary: Constitutional: Well-developed, Well-nourished, Alert. (-) Distressed Skin: Warm, Dry, pale HENT: Normocephalic; Atraumatic Eyes: Conjunctiva normal Neck: Musculoskeletal ROM normal neck. (-) JVD, (-) Stridor, (-) Tracheal deviation Cardio: Rhythm regular, rate normal, Heart sounds normal; Intact distal pulses; The pedal pulses are 2+ and symmetric. Radial pulses are 2+ and symmetric. Pulmonary/Chest wall: Effort normal. (-) Respiratory distress, (-) Wheezes, (-) Rales Abd: Soft, (-) tenderness, (-) Distension, (-) Guarding, (-) Rebound Musculoskeletal: (-) Edema Neuro: Alert, Oriented x3 Psych: Mood and affect Normal Triage Information Reviewed: Yes Vital Signs On Initial Exam: Initial Vitals Temp Pulse Resp BP Pulse Ox 98.1 F 73 16 158/64 95 09/10/19 12:52 09/10/19 12:52 09/10/19 12:52 09/10/19 12:52 09/10/19 12:52 Vital Signs Reviewed: Yes Procedures - Sedation Patient Received Moderate/Deep Sedation with Procedure: No Diagnostics - Vital Signs Vital Signs Temp Pulse Resp BP Pulse Ox 09/10/19 12:52 98.1 F 73 16 158/64 95 - Laboratory Result Diagrams: 09/10/19 13:27 09/10/19 13:27 Lab Statement: Any lab studies that have been ordered have been reviewed, and results considered in the medical decision making process. - Radiology Sacrum and Coccyx X-Ray Radiology Interpretation Completed By: Radiologist Summary of Radiographic Findings: no evidence for fractures or breaks. ED physician has reviewed this report. Abdominal Pain Fem Course/Dx - Course Course Of Treatment: This pt is a 74 Y/O F presenting to [facility] with a CC of abdominal pain rated a 7/10 in severity with associated rectum bleeding that started on 09/09/19 following a fall where she landed on her buttocks. She states that prior to the fall she felt very lightheaded and became dizzy. Her states that she hit the wall with her head. She states that last night she had diarrhea with associated bloody stools. She states that the bleeding worsened and began occurring while she urinated but states that the blood still came out of her rectum. Her PE found that she was pale. She has abnormalities in the following laboratory values: WBCs, Hgb, Hct, Absolute Neuts, and a negative occult blood. Her Sacrum and Coccyx X-Ray found no evidence for fractures or breaks. She will be discharged home with a Dx of rectal bleeding, diarrhea, and dehydration. - Diagnoses Provider Diagnoses: Acute diarrhea, Rectal bleeding, Dehydration Discharge ED - Sign-Out/Discharge Documenting (check all that apply): Patient Departure - discharge - Discharge Plan Condition: Stable Disposition: HOME Patient Education Materials: Acute Diarrhea (ED), Dehydration (ED), Rectal Bleeding (ED) Referrals: Austyn Boyd MD [Primary Care Provider] - 2 Days Additional Instructions: PLEASE FOLLOW UP WITH YOUR PRIMARY CARE PROVIDER IN 1-3 DAYS AND RETURN TO THE EMERGENCY DEPARTMENT FOR ANY NEW OR WORSENING SYMPTOMS. - Attestation Statements Document Initiated by Darell: Yes Documenting Scribe: Kapil Castellanos Provider For Whom Scribe is Documenting (Include Credential): Kip Kenny DO Scribdayna Attestation: I, Kapil Castellanos, scribed for Kip Kenny DO on 09/10/19 at 1536. Status of Scribe Document: Ready
[2019-09-10] MEDS ORDERED: NS 0.9% 1000 ML** 1,000 ML IV ONE (13:15)
[2019-09-10 13:43] LABS: ABS Basophils 0.1 10^3/ul (0-0.2); ABS Eosinophils 0.4 10^3/ul (0-0.6); ABS Lymphocytes 1.7 10^3/ul (1.0-4.8); ABS Monocytes 0.7 10^3/ul (0-0.8); ABS Neutrophils 10.5 10^3/ul (1.5-7.7); Eosinophil % 3.1 %; Hematocrit 32 % (35-47); Hemoglobin 10.6 g/dL (12.0-16.0); Lymphocyte % 12.9 %; Mean Corpuscular HGB Conc 33 g/dL (31-36); Mean Corpuscular Hemoglobin 27 pg (27-31); Mean Corpuscular Volume 82 fL (80-97); Mean Platelet Volume 7.4 fL (7.4-10.4); Platelet Count 411 10^3/uL (150-450); Red Blood Count 3.97 10^6 /uL (3.70-4.87); Red Cell Distribution Width 15 % (10-15); White Blood Count 13.4 10^3/uL (3.5-10.8)
[2019-09-10 13:50] LABS: Activated Partial Thrombo Time 34.4 seconds (26.0-38.0); INR 0.95 (0.82-1.09)
[2019-09-10 14:00] LABS: Albumin 3.9 g/dL (3.2-5.2); Albumin/Globulin Ratio 1.4 (1-3); BUN/Creatinine Ratio 18.8 (8-20); Calcium 9.3 mg/dL (8.6-10.3); EGFR African American 78.7 (>60); Globulin 2.8 g/dL (2-4); Potassium 3.9 mmol/L (3.5-5.0); Total Bilirubin 0.3 mg/dL (0.2-1.0); Total Protein 6.7 g/dL (6.4-8.9)
[2019-09-10] MEDS ORDERED: NS 0.9% 500 ML* 500 ML IV ONE (14:42)
[2019-09-10 15:41] VITALS: BP 152/84
== END 2019-09-10 15:40 | disposition home or self-care (01) ==
LOC: ED 12:48
DX: R19.7 Diarrhea, unspecified (principal); K62.5 Hemorrhage of anus and rectum; E86.0 Dehydration; E11.9 Type 2 diabetes mellitus without complications; I10 Essential (primary) hypertension; R51 Headache; Z91.81 History of falling
CPT/HCPCS: 36415; 72220; 80053; 82270; 85025; 85610; 85730; 86850; 86900; 86901; 96360; 96361; 99282

== ENCOUNTER 2021-06-07 08:59 | Inpatient (IN) ==
[2021-06-07] MEDS ORDERED: Morphine 4 MG/ML VIAL (1 ml) IV ONE (10:36)
[2021-06-07] MEDS ORDERED: Lactated Ringers 1000 ml BAG 1,000 ML IV ONE (10:36)
[2021-06-07] MEDS ORDERED: Ondansetron 4 mg VIAL 2 MG/ML 2 ml VIAL IV ONE (10:37)
[2021-06-07 11:19] LABS: ABS Eosinophils 0.2 10^3/ul (0-0.6); ABS Lymphocytes 1.4 10^3/ul (1.0-4.8); ABS Monocytes 0.4 10^3/ul (0-0.8); ABS Neutrophils 8.3 10^3/ul (1.5-7.7); Hematocrit 37 % (35-47); Hemoglobin 12.3 g/dL (12.0-16.0); Lymphocyte % 13.9 %; Mean Corpuscular HGB Conc 33 g/dL (31-36); Mean Corpuscular Hemoglobin 28 pg (27-31); Mean Corpuscular Volume 84 fL (80-97); Mean Platelet Volume 7.6 fL (7.4-10.4); Platelet Count 341 10^3/uL (150-450); Red Blood Count 4.46 10^6 /uL (3.70-4.87); Red Cell Distribution Width 17 % (10-15); White Blood Count 10.4 10^3/uL (3.5-10.8)
[2021-06-07 11:39] LABS: Troponin I 0.01 ng/mL (<0.03)
[2021-06-07 11:40] LABS: Albumin 4.4 g/dL (3.2-5.2); Albumin/Globulin Ratio 1.5 (1-3); Calcium 9.7 mg/dL (8.6-10.3); EGFR African American 96.6 (>60); EGFR Non-African American 79.8 (>60); Globulin 2.9 g/dL (2-4); Magnesium 1.9 mg/dL (1.9-2.7); Potassium 4.7 mmol/L (3.5-5.0); Total Bilirubin 0.3 mg/dL (0.2-1.0); Total Protein 7.3 g/dL (6.4-8.9)
[2021-06-07 12:15] LABS: Activated Partial Thrombo Time 32.5 seconds (26.0-38.0); INR 0.96 (0.86-1.15)
[2021-06-07] MEDS: Morphine 4 MG/ML VIAL (1 ml) IV ONE ×2 (12:18→12:20)
[2021-06-07 12:25] LABS: TSH Ultra Thyroid Stim Horm 2.75 mcIU/mL (0.34-5.60)
[2021-06-07] MEDS ORDERED: Acetaminophen IV 1 GM/100ML 100 ML IV PRN ×2 (12:54→18:22)
[2021-06-07] MEDS ORDERED: Morphine 2 MG/ML SYRINGE IV PRN (12:54)
[2021-06-07] MEDS ORDERED: Ondansetron 4 mg VIAL 2 MG/ML 2 ml VIAL IV PRN ×2 (12:55→18:22)
[2021-06-07 12:57] LABS: Rapid COVID-19 Molecular Undetected (Undetected)
[2021-06-07] MEDS ORDERED: NS 0.9% 1000 ml BAG 1,000 ML IV SCH (13:00)
[2021-06-07] MEDS ORDERED: Clindamycin 900 MG/D5W BAG 900 MG/50 ML BAG IVPB ONE (15:52)
[2021-06-07] MEDS ORDERED: Famotidine IV 10 MG/ML 2 ml VIAL (20 mg) ONE (16:52)
[2021-06-07] MEDS ORDERED: fentaNYL 100 mcg/2 ml 50 MCG/ML VIAL ONE (17:04)
[2021-06-07] MEDS ORDERED: Ketamine HCL 50 mg/ml 10 ml VIAL (500 MG) ONE (17:04)
[2021-06-07] MEDS ORDERED: Midazolam 2 mg/2 ml VIAL 1 mg/ml 2 ml VIAL (2 mg) ONE (17:04)
[2021-06-07] MEDS ORDERED: Bupivacaine 0.5% SDV PF 30ML VIAL ONE (17:06)
[2021-06-07] MEDS ORDERED: Propofol 10 MG/ML 20 ML BTL ONE (17:06)
[2021-06-07] MEDS ORDERED: Phenylephrine IV 10 MG/ML 1 ml VIAL ONE ×2 (17:06→17:10)
[2021-06-07] MEDS ORDERED: Famotidine IV 10 MG/ML 2 ml VIAL (20 mg) IV SLOW PU ONE (17:37)
[2021-06-07] MEDS ORDERED: DiMENhydriNATE IV 50 mg/ml 1 ml VIAL IV PUSH PRN (18:22)
[2021-06-07] MEDS ORDERED: HYDROmorphone 1 MG/1 ML SYRINGE IV PRN (18:22)
[2021-06-07] MEDS ORDERED: fentaNYL 100 mcg/2 ml 50 MCG/ML VIAL IV PRN (18:22)
[2021-06-07] MEDS ORDERED: Naloxone 0.4 mg VIAL 0.4 mg/ml 1 ml VIAL IV PRN (18:22)
[2021-06-08] MEDS: Clindamycin 600 MG/D5W BAG IV SCH ×3 (01:53→17:38)
[2021-06-08 06:14] LABS: ABS Eosinophils 0.1 10^3/ul (0-0.6); ABS Lymphocytes 0.8 10^3/ul (1.0-4.8); ABS Monocytes 0.6 10^3/ul (0-0.8); Eosinophil % 0.7 %; Hematocrit 28 % (35-47); Hemoglobin 9.2 g/dL (12.0-16.0); Lymphocyte % 6.6 %; Mean Corpuscular HGB Conc 33 g/dL (31-36); Mean Corpuscular Hemoglobin 27 pg (27-31); Mean Corpuscular Volume 83 fL (80-97); Mean Platelet Volume 7.9 fL (7.4-10.4); Platelet Count 352 10^3/uL (150-450); Red Blood Count 3.39 10^6 /uL (3.70-4.87); Red Cell Distribution Width 17 % (10-15); White Blood Count 11.5 10^3/uL (3.5-10.8)
[2021-06-08 06:30] LABS: Calcium 8.8 mg/dL (8.6-10.3); EGFR African American 108.9 (>60); Potassium 4.2 mmol/L (3.5-5.0)
[2021-06-08] MEDS ORDERED: Enoxaparin 40 MG/0.4 ML SYR SUBCUT SCH (09:00)
[2021-06-08] MEDS ORDERED: Aspirin EC 81 mg TAB.EC (enteric coated) PO SCH (09:00)
[2021-06-08] MEDS ORDERED: Fluticasone NASAL SPRAY 50MCG 16 gm SPRAY BTL BOTH NARES SCH (09:00)
[2021-06-08] MEDS ORDERED: Dextrose 50% Syringe 50 ml 25 GM/50 ML SYRINGE IV PUSH PRN (09:43)
[2021-06-09] MEDS: Clindamycin 600 MG/D5W BAG IV SCH (01:45)
[2021-06-09 05:54] LABS: ABS Eosinophils 0.3 10^3/ul (0-0.6); ABS Lymphocytes 1.3 10^3/ul (1.0-4.8); ABS Monocytes 0.6 10^3/ul (0-0.8); ABS Neutrophils 5.8 10^3/ul (1.5-7.7); Eosinophil % 3.4 %; Hematocrit 22 % (35-47); Hemoglobin 7.5 g/dL (12.0-16.0); Lymphocyte % 15.8 %; Mean Corpuscular HGB Conc 34 g/dL (31-36); Mean Corpuscular Hemoglobin 28 pg (27-31); Mean Corpuscular Volume 83 fL (80-97); Mean Platelet Volume 7.5 fL (7.4-10.4); Platelet Count 280 10^3/uL (150-450); Red Blood Count 2.69 10^6 /uL (3.70-4.87); Red Cell Distribution Width 17 % (10-15); White Blood Count 7.9 10^3/uL (3.5-10.8)
[2021-06-09 06:25] LABS: Calcium 8.6 mg/dL (8.6-10.3); EGFR African American 85.4 (>60); EGFR Non-African American 70.6 (>60); Potassium 4.4 mmol/L (3.5-5.0)
[2021-06-09] MEDS ORDERED: Furosemide 40 mg/4 ml IV VIAL IV ONE (07:23)
[2021-06-09 07:33] VITALS: BP 136/40
== END 2021-06-09 07:28 | DRG 522 ==
LOC: ED 08:59 → SSU 20:05 → SUATTDRO 20:05
PROVIDERS: ADMIT Student in an Organized Health Care Education/Training Program; ATTEND Hospitalist

== ENCOUNTER 2021-06-09 09:23 | Inpatient (IN) ==
[2021-06-09] MEDS ORDERED: Dextrose 50% Syringe 50 ml 25 GM/50 ML SYRINGE IV PUSH PRN (12:49)
[2021-06-09] MEDS ORDERED: Enoxaparin 40 MG/0.4 ML SYR SUBCUT SCH (13:00)
[2021-06-09 17:31] LABS: Glucose Confirmatory 461 mg/dL (70-100)
[2021-06-10 07:02] LABS: ABS Eosinophils 0.3 10^3/ul (0-0.6); ABS Lymphocytes 1.8 10^3/ul (1.0-4.8); ABS Monocytes 0.6 10^3/ul (0-0.8); ABS Neutrophils 6.3 10^3/ul (1.5-7.7); Eosinophil % 3.5 %; Hematocrit 20 % (35-47); Lymphocyte % 19.6 %; Mean Corpuscular HGB Conc 34 g/dL (31-36); Mean Corpuscular Hemoglobin 28 pg (27-31); Mean Corpuscular Volume 82 fL (80-97); Mean Platelet Volume 7.5 fL (7.4-10.4); Platelet Count 271 10^3/uL (150-450); Red Blood Count 2.48 10^6 /uL (3.70-4.87); Red Cell Distribution Width 17 % (10-15)
[2021-06-10 07:16] LABS: Albumin 3.3 g/dL (3.2-5.2); Albumin/Globulin Ratio 1.2 (1-3); Calcium 8.7 mg/dL (8.6-10.3); EGFR African American 98.2 (>60); EGFR Non-African American 81.1 (>60); Globulin 2.7 g/dL (2-4); Potassium 4.4 mmol/L (3.5-5.0); Total Bilirubin 0.5 mg/dL (0.2-1.0)
[2021-06-10] MEDS: Aspirin EC 81 mg TAB.EC (enteric coated) PO SCH (08:50)
[2021-06-10] MEDS: Fluticasone NASAL SPRAY 50MCG 16 gm SPRAY BTL BOTH NARES SCH (08:55)
[2021-06-10] MEDS ORDERED: Flu vaccine *QUAD* 2021-22* 0.5 ML SYRINGE IM ONE (09:00)
[2021-06-10] MEDS ORDERED: Enoxaparin 40 MG/0.4 ML SYR SUBCUT SCH (10:00)
[2021-06-10] MEDS: Senna TAB 8.6 mg TAB PO PRN (20:50)
[2021-06-11] MEDS: HYDROcodone/ACETAMIN 5/325 mg TAB PO PRN ×3 (01:48→16:35)
[2021-06-11] MEDS: Aspirin EC 81 mg TAB.EC (enteric coated) PO SCH (08:35)
[2021-06-11] MEDS: Fluticasone NASAL SPRAY 50MCG 16 gm SPRAY BTL BOTH NARES SCH (08:36)
[2021-06-11 08:50] LABS: ABS Eosinophils 0.4 10^3/ul (0-0.6); ABS Lymphocytes 1.7 10^3/ul (1.0-4.8); ABS Monocytes 0.7 10^3/ul (0-0.8); ABS Neutrophils 6.1 10^3/ul (1.5-7.7); Eosinophil % 4.1 %; Hematocrit 28 % (35-47); Hemoglobin 9.6 g/dL (12.0-16.0); Mean Corpuscular HGB Conc 34 g/dL (31-36); Mean Corpuscular Hemoglobin 28 pg (27-31); Mean Corpuscular Volume 83 fL (80-97); Mean Platelet Volume 7.3 fL (7.4-10.4); Platelet Count 324 10^3/uL (150-450); Red Blood Count 3.41 10^6 /uL (3.70-4.87); Red Cell Distribution Width 15 % (10-15); White Blood Count 8.9 10^3/uL (3.5-10.8)
[2021-06-11] MEDS ORDERED: Polyethylene Glycol 3350 17 GM PACKET PO PRN (11:06)
[2021-06-11 11:35] LABS: Urine Appearance Clear; Urine Bilirubin Negative (Negative); Urine Blood Negative (Negative); Urine Color Yellow; Urine Glucose 3+(>=500 mg/dL) (Negative); Urine Ketones Negative (Negative); Urine Nitrite Negative (Negative); Urine Protein Negative (Negative); Urine Specific Gravity 1.003 (1.002-1.030); Urine Urobilinogen Negative (Negative)
[2021-06-11 11:37] LABS: Urine Bacteria Absent (Absent); Urine Red Blood Cell Trace(0-2/hpf) (Absent); Urine Squamous Epithelial Cell Present (Absent); Urine White Blood Cell Trace(0-5/hpf) (Absent)
[2021-06-11] MEDS: Enoxaparin 40 MG/0.4 ML SYR SUBCUT SCH (13:00)
[2021-06-11] MEDS: Magnesium Hydroxide LIQ 30 ML UDC PO PRN (16:34)
[2021-06-11] MEDS: Senna TAB 8.6 mg TAB PO PRN (20:45)
[2021-06-12] MEDS: HYDROcodone/ACETAMIN 5/325 mg TAB PO PRN ×2 (03:42→21:13)
[2021-06-12] MEDS: Aspirin EC 81 mg TAB.EC (enteric coated) PO SCH (08:49)
[2021-06-12] MEDS: Fluticasone NASAL SPRAY 50MCG 16 gm SPRAY BTL BOTH NARES SCH (08:49)
[2021-06-12] MEDS: Enoxaparin 40 MG/0.4 ML SYR SUBCUT SCH (12:57)
[2021-06-12] MEDS: Senna TAB 8.6 mg TAB PO PRN (21:12)
[2021-06-13] MEDS: HYDROcodone/ACETAMIN 5/325 mg TAB PO PRN ×2 (05:46→22:15)
[2021-06-13 06:36] LABS: ABS Eosinophils 0.3 10^3/ul (0-0.6); ABS Lymphocytes 2.2 10^3/ul (1.0-4.8); ABS Monocytes 0.9 10^3/ul (0-0.8); ABS Neutrophils 6.1 10^3/ul (1.5-7.7); Eosinophil % 2.9 %; Hematocrit 26 % (35-47); Hemoglobin 8.8 g/dL (12.0-16.0); Lymphocyte % 23.2 %; Mean Corpuscular HGB Conc 34 g/dL (31-36); Mean Corpuscular Hemoglobin 28 pg (27-31); Mean Corpuscular Volume 84 fL (80-97); Mean Platelet Volume 7.5 fL (7.4-10.4); Platelet Count 379 10^3/uL (150-450); Red Blood Count 3.09 10^6 /uL (3.70-4.87); Red Cell Distribution Width 16 % (10-15); White Blood Count 9.5 10^3/uL (3.5-10.8)
[2021-06-13] MEDS: Aspirin EC 81 mg TAB.EC (enteric coated) PO SCH (10:04)
[2021-06-13] MEDS: Fluticasone NASAL SPRAY 50MCG 16 gm SPRAY BTL BOTH NARES SCH (10:05)
[2021-06-13] MEDS: Enoxaparin 40 MG/0.4 ML SYR SUBCUT SCH (13:05)
[2021-06-14] MEDS: Ondansetron ODT 4 mg TAB 4 MG TAB PO PRN (03:02)
[2021-06-14] MEDS: Aspirin EC 81 mg TAB.EC (enteric coated) PO SCH (09:17)
[2021-06-14] MEDS: Fluticasone NASAL SPRAY 50MCG 16 gm SPRAY BTL BOTH NARES SCH (09:18)
[2021-06-14] MEDS: Enoxaparin 40 MG/0.4 ML SYR SUBCUT SCH (13:06)
[2021-06-14] MEDS: Senna TAB 8.6 mg TAB PO PRN (21:47)
[2021-06-14] MEDS: HYDROcodone/ACETAMIN 5/325 mg TAB PO PRN (21:48)
[2021-06-15] MEDS: HYDROcodone/ACETAMIN 5/325 mg TAB PO PRN ×2 (03:06→22:48)
[2021-06-15 06:56] LABS: ABS Eosinophils 0.4 10^3/ul (0-0.6); ABS Lymphocytes 1.6 10^3/ul (1.0-4.8); ABS Monocytes 0.7 10^3/ul (0-0.8); ABS Neutrophils 6.5 10^3/ul (1.5-7.7); Eosinophil % 4.8 %; Hematocrit 29 % (35-47); Hemoglobin 10.1 g/dL (12.0-16.0); Lymphocyte % 17.4 %; Mean Corpuscular HGB Conc 35 g/dL (31-36); Mean Corpuscular Hemoglobin 29 pg (27-31); Mean Corpuscular Volume 84 fL (80-97); Mean Platelet Volume 7.3 fL (7.4-10.4); Nucleated Red Blood Cells % 0.1; Platelet Count 474 10^3/uL (150-450); Red Blood Count 3.47 10^6 /uL (3.70-4.87); Red Cell Distribution Width 15 % (10-15); White Blood Count 9.3 10^3/uL (3.5-10.8)
[2021-06-15] MEDS: Aspirin EC 81 mg TAB.EC (enteric coated) PO SCH (08:43)
[2021-06-15] MEDS: Fluticasone NASAL SPRAY 50MCG 16 gm SPRAY BTL BOTH NARES SCH (08:46)
[2021-06-15] MEDS: Enoxaparin 40 MG/0.4 ML SYR SUBCUT SCH (12:50)
[2021-06-15] MEDS: Senna TAB 8.6 mg TAB PO PRN (20:22)
[2021-06-15 21:00] LABS: Urine Appearance Cloudy; Urine Bilirubin Negative (Negative); Urine Blood 1+ (Negative); Urine Color Yellow; Urine Glucose Negative (Negative); Urine Ketones Negative (Negative); Urine Nitrite Positive (Negative); Urine Protein Negative (Negative); Urine Specific Gravity 1.004 (1.002-1.030); Urine Urobilinogen Negative (Negative)
[2021-06-15 21:16] LABS: Urine Bacteria 1+ (Absent); Urine Red Blood Cell Trace(0-2/hpf) (Absent); Urine Squamous Epithelial Cell Present (Absent); Urine White Blood Cell 3+(>20/hpf) (Absent)
[2021-06-15] MEDS ORDERED: Amoxicillin/Clavul 500/125 TAB (Augmentin 500 mg tab) PO ONE (23:05)
[2021-06-16] MEDS: Amoxicillin/Clavul 500/125 TAB (Augmentin 500 mg tab) PO SCH ×2 (08:23→21:22)
[2021-06-16] MEDS: HYDROcodone/ACETAMIN 5/325 mg TAB PO PRN ×2 (08:24→19:34)
[2021-06-16] MEDS: Aspirin EC 81 mg TAB.EC (enteric coated) PO SCH (08:24)
[2021-06-16] MEDS: Fluticasone NASAL SPRAY 50MCG 16 gm SPRAY BTL BOTH NARES SCH (08:25)
[2021-06-16] MEDS: Enoxaparin 40 MG/0.4 ML SYR SUBCUT SCH (12:15)
[2021-06-16] MEDS: Senna TAB 8.6 mg TAB PO PRN (21:22)
[2021-06-17 06:16] LABS: ABS Eosinophils 0.5 10^3/ul (0-0.6); ABS Lymphocytes 1.1 10^3/ul (1.0-4.8); ABS Monocytes 0.6 10^3/ul (0-0.8); ABS Neutrophils 5.5 10^3/ul (1.5-7.7); Hematocrit 26 % (35-47); Hemoglobin 8.9 g/dL (12.0-16.0); Lymphocyte % 14.8 %; Mean Corpuscular HGB Conc 35 g/dL (31-36); Mean Corpuscular Hemoglobin 30 pg (27-31); Mean Corpuscular Volume 85 fL (80-97); Mean Platelet Volume 7.1 fL (7.4-10.4); Platelet Count 478 10^3/uL (150-450); Red Blood Count 3.03 10^6 /uL (3.70-4.87); Red Cell Distribution Width 16 % (10-15); White Blood Count 7.7 10^3/uL (3.5-10.8)
[2021-06-17] MEDS: HYDROcodone/ACETAMIN 5/325 mg TAB PO PRN (08:50)
[2021-06-17] MEDS: Aspirin EC 81 mg TAB.EC (enteric coated) PO SCH (08:50)
[2021-06-17] MEDS: Amoxicillin/Clavul 500/125 TAB (Augmentin 500 mg tab) PO SCH ×2 (08:51→21:02)
[2021-06-17] MEDS: Fluticasone NASAL SPRAY 50MCG 16 gm SPRAY BTL BOTH NARES SCH ×2 (08:52→22:08)
[2021-06-17 09:41] LABS: Albumin 3.3 g/dL (3.2-5.2); Albumin/Globulin Ratio 1.3 (1-3); Calcium 8.7 mg/dL (8.6-10.3); Globulin 2.6 g/dL (2-4); Potassium 4.6 mmol/L (3.5-5.0); Total Bilirubin 0.7 mg/dL (0.2-1.0); Total Protein 5.9 g/dL (6.4-8.9)
[2021-06-17] MEDS: Enoxaparin 40 MG/0.4 ML SYR SUBCUT SCH (12:44)
[2021-06-18] MEDS: HYDROcodone/ACETAMIN 5/325 mg TAB PO PRN ×2 (08:33→22:19)
[2021-06-18] MEDS: Amoxicillin/Clavul 500/125 TAB (Augmentin 500 mg tab) PO SCH ×2 (09:14→20:43)
[2021-06-18] MEDS: Aspirin EC 81 mg TAB.EC (enteric coated) PO SCH (09:14)
[2021-06-18] MEDS: Fluticasone NASAL SPRAY 50MCG 16 gm SPRAY BTL BOTH NARES SCH ×2 (09:15→20:48)
[2021-06-18] MEDS: Enoxaparin 40 MG/0.4 ML SYR SUBCUT SCH (12:31)
[2021-06-19] MEDS: HYDROcodone/ACETAMIN 5/325 mg TAB PO PRN ×2 (04:14→17:39)
[2021-06-19 06:06] LABS: Calcium 8.8 mg/dL (8.6-10.3); Potassium 4.4 mmol/L (3.5-5.0)
[2021-06-19] MEDS: Amoxicillin/Clavul 500/125 TAB (Augmentin 500 mg tab) PO SCH ×2 (11:06→21:01)
[2021-06-19] MEDS: Aspirin EC 81 mg TAB.EC (enteric coated) PO SCH (11:06)
[2021-06-19] MEDS: Fluticasone NASAL SPRAY 50MCG 16 gm SPRAY BTL BOTH NARES SCH ×2 (11:16→21:06)
[2021-06-19] MEDS: Enoxaparin 40 MG/0.4 ML SYR SUBCUT SCH (13:38)
[2021-06-20] MEDS: HYDROcodone/ACETAMIN 5/325 mg TAB PO PRN ×4 (01:02→23:51)
[2021-06-20] MEDS: Ondansetron ODT 4 mg TAB 4 MG TAB PO PRN (01:05)
[2021-06-20] MEDS: Aspirin EC 81 mg TAB.EC (enteric coated) PO SCH (09:46)
[2021-06-20] MEDS: Fluticasone NASAL SPRAY 50MCG 16 gm SPRAY BTL BOTH NARES SCH ×2 (09:46→20:46)
[2021-06-20] MEDS: Amoxicillin/Clavul 500/125 TAB (Augmentin 500 mg tab) PO SCH ×2 (09:46→20:47)
[2021-06-20] MEDS: Enoxaparin 40 MG/0.4 ML SYR SUBCUT SCH (13:27)
[2021-06-21] MEDS: HYDROcodone/ACETAMIN 5/325 mg TAB PO PRN ×3 (06:18→21:49)
[2021-06-21] MEDS ORDERED: Enoxaparin 40 MG/0.4 ML SYR SUBCUT SCH (09:00)
[2021-06-21] MEDS: Aspirin EC 81 mg TAB.EC (enteric coated) PO SCH (09:08)
[2021-06-21] MEDS: Amoxicillin/Clavul 500/125 TAB (Augmentin 500 mg tab) PO SCH ×2 (09:08→21:51)
[2021-06-21] MEDS: Fluticasone NASAL SPRAY 50MCG 16 gm SPRAY BTL BOTH NARES SCH ×2 (09:15→21:50)
[2021-06-21] MEDS: Ondansetron ODT 4 mg TAB 4 MG TAB PO PRN (20:22)
[2021-06-21] MEDS: Senna TAB 8.6 mg TAB PO PRN (21:47)
[2021-06-21] MEDS: guaiFENesin 100 mg/5 ml LIQ unit dose cup PO PRN (21:51)
[2021-06-21] MEDS: Magnesium Hydroxide LIQ 30 ML UDC PO PRN (22:02)
[2021-06-22 06:50] LABS: ABS Basophils 0.1 10^3/ul (0-0.2); ABS Eosinophils 0.5 10^3/ul (0-0.6); ABS Lymphocytes 1.2 10^3/ul (1.0-4.8); ABS Monocytes 0.8 10^3/ul (0-0.8); ABS Neutrophils 10.2 10^3/ul (1.5-7.7); Eosinophil % 4.2 %; Hematocrit 20 % (35-47); Hemoglobin 7.1 g/dL (12.0-16.0); Lymphocyte % 9.5 %; Mean Corpuscular HGB Conc 35 g/dL (31-36); Mean Corpuscular Hemoglobin 30 pg (27-31); Mean Corpuscular Volume 85 fL (80-97); Mean Platelet Volume 6.9 fL (7.4-10.4); Platelet Count 563 10^3/uL (150-450); Red Blood Count 2.38 10^6 /uL (3.70-4.87); Red Cell Distribution Width 17 % (10-15); White Blood Count 12.8 10^3/uL (3.5-10.8)
[2021-06-22 07:07] LABS: ALT 12 U/L (7-52); AST 14 U/L (13-39); Albumin 3.4 g/dL (3.2-5.2); Albumin/Globulin Ratio 1.4 (1-3); Alkaline Phosphatase 79 U/L (35-149); Blood Urea Nitrogen 16 mg/dL (6-24); CO2 Carbon Dioxide 29 mmol/L (22-32); Calcium 8.5 mg/dL (8.6-10.3); Chloride 81 mmol/L (101-111); Cholesterol 134 mg/dL; Creatine Kinase 67 U/L (10-223); Globulin 2.5 g/dL (2-4); Glucose 154 mg/dL (70-100); HDL Cholesterol 54.9 mg/dL; LDL Cholesterol 56 mg/dL; Potassium 4.5 mmol/L (3.5-5.0); Total Protein 5.9 g/dL (6.4-8.9); Triglycerides 114 mg/dL
[2021-06-22 07:12] LABS: Troponin I 0.03 ng/mL (<0.03)
[2021-06-22 07:18] LABS: Anion Gap 4 mmol/L (2-11); Sodium 114 mmol/L (135-145)
[2021-06-22 08:12] LABS: % Iron Saturation 18 % (15-55); Iron 67 ug/dL (50-212); Total Iron Binding Capacity 378 mcg/dL (250-450); Transferrin 270 mg/dL (203-362); Unsaturated Iron Binding < 363 ug/dL
[2021-06-22 08:32] LABS: Ferritin 192.3 ng/mL (11-307)
[2021-06-22] MEDS: guaiFENesin 100 mg/5 ml LIQ unit dose cup PO PRN (08:57)
[2021-06-22] MEDS: Amoxicillin/Clavul 500/125 TAB (Augmentin 500 mg tab) PO SCH (08:57)
[2021-06-22] MEDS: Aspirin EC 81 mg TAB.EC (enteric coated) PO SCH (08:57)
[2021-06-22] MEDS: Fluticasone NASAL SPRAY 50MCG 16 gm SPRAY BTL BOTH NARES SCH (09:02)
[2021-06-22 11:13] LABS: Hematocrit 20 % (35-47); Mean Corpuscular HGB Conc 35 g/dL (31-36); Mean Corpuscular Hemoglobin 30 pg (27-31); Mean Corpuscular Volume 84 fL (80-97); Mean Platelet Volume 6.5 fL (7.4-10.4); Platelet Count 537 10^3/uL (150-450); Red Blood Count 2.37 10^6 /uL (3.70-4.87); Red Cell Distribution Width 17 % (10-15); White Blood Count 13.6 10^3/uL (3.5-10.8)
[2021-06-22 11:32] LABS: Blood Urea Nitrogen 14 mg/dL (6-24); CO2 Carbon Dioxide 29 mmol/L (22-32); Calcium 8.4 mg/dL (8.6-10.3); Chloride 79 mmol/L (101-111); Glucose 134 mg/dL (70-100); Potassium 4.9 mmol/L (3.5-5.0)
[2021-06-22 11:38] LABS: Anion Gap 3 mmol/L (2-11); Sodium 111 mmol/L (135-145); Troponin I 0.04 ng/mL (<0.03)
[2021-06-22 13:15] LABS: ABS Basophils 0.1 10^3/ul (0-0.2); ABS Eosinophils 0.6 10^3/ul (0-0.6); ABS Lymphocytes 1.2 10^3/ul (1.0-4.8); ABS Neutrophils 10.8 10^3/ul (1.5-7.7); Eosinophil % 4.4 %; Lymphocyte % 9.1 %
[2021-06-22] MEDS ORDERED: NS 0.9% 1000 ml BAG 1,000 ML IV SCH (15:30)
[2021-06-22 15:39] VITALS: BP 101/42
== END 2021-06-22 14:51 | disposition short-term general hospital (02) | DRG 560 ==
LOC: PMRU 09:23
PROVIDERS: ADMIT Physical Medicine & Rehabilitation; ATTEND Physical Medicine & Rehabilitation

== ENCOUNTER 2021-06-22 16:06 | Inpatient (IN) ==
[2021-06-22] MEDS ORDERED: NS 0.9% 1000 ml BAG 1,000 ML IV SCH ×2 (16:30→23:15)
[2021-06-22] MEDS ORDERED: Ondansetron 4 mg VIAL 2 MG/ML 2 ml VIAL IV PRN (16:56)
[2021-06-22] MEDS ORDERED: Dextrose 50% Syringe 50 ml 25 GM/50 ML SYRINGE IV PUSH PRN (16:57)
[2021-06-22 17:30] LABS: Sodium 118 mmol/L (135-145)
[2021-06-22 17:41] LABS: Troponin I 0.12 ng/mL (<0.03)
[2021-06-22] MEDS ORDERED: Nitroglycerin 0.3 mg TAB SL ONE (17:48)
[2021-06-22 18:15] LABS: Glucose 97 mg/dL (70-100)
[2021-06-22] MEDS: Enoxaparin 40 MG/0.4 ML SYR SUBCUT SCH (19:39)
[2021-06-22 22:21] LABS: Troponin I 0.05 ng/mL (<0.03)
[2021-06-22 22:45] LABS: Sodium 110 mmol/L (135-145)
[2021-06-23 03:15] LABS: Hematocrit 20 % (35-47); Hemoglobin 6.8 g/dL (12.0-16.0); Mean Corpuscular HGB Conc 33 g/dL (31-36); Mean Corpuscular Hemoglobin 29 pg (27-31); Mean Corpuscular Volume 87 fL (80-97); Mean Platelet Volume 7.8 fL (7.4-10.4); Platelet Count 578 10^3/uL (150-450); Red Blood Count 2.35 10^6 /uL (3.70-4.87); Red Cell Distribution Width 17 % (10-15); White Blood Count 15.5 10^3/uL (3.5-10.8)
[2021-06-23 03:23] LABS: ABS Eosinophils 0.3 10^3/ul (0-0.6); ABS Lymphocytes 1.2 10^3/ul (1.0-4.8); ABS Monocytes 0.8 10^3/ul (0-0.8); ABS Neutrophils 13.2 10^3/ul (1.5-7.7); Eosinophil % 1.8 %; Nucleated Red Blood Cells % 0.1
[2021-06-23 03:25] LABS: Blood Urea Nitrogen 23 mg/dL (6-24); CO2 Carbon Dioxide 22 mmol/L (22-32); Calcium 8.1 mg/dL (8.6-10.3); Chloride 79 mmol/L (101-111); Glucose 145 mg/dL (70-100); INR 1.2 (0.86-1.15); Phosphorus 4.3 mg/dL (2.5-5.0)
[2021-06-23 03:26] LABS: Anion Gap 8 mmol/L (2-11); Potassium 6.1 mmol/L (3.5-5.0); Sodium 109 mmol/L (135-145)
[2021-06-23] MEDS ORDERED: Sodium Polystyrene ORAL.SUSP 15 GM/60 ML BTL PO ONE (03:47)
[2021-06-23] MEDS ORDERED: Dextrose 50% Syringe 50 ml 25 GM/50 ML SYRINGE IV PUSH ONE ×2 (03:56→13:38)
[2021-06-23] MEDS ORDERED: Dextrose 50% Syringe 50 ml 25 GM/50 ML SYRINGE IV PUSH SCH (04:00)
[2021-06-23 04:32] LABS: C Reactive Protein 61.16 mg/L (<8.01)
[2021-06-23 05:27] LABS: LDH 2337 U/L (140-271)
[2021-06-23 07:46] LABS: Troponin I 0.07 ng/mL (<0.03)
[2021-06-23 08:27] LABS: Calcium 7.8 mg/dL (8.6-10.3)
[2021-06-23 08:33] LABS: Potassium 5.4 mmol/L (3.5-5.0)
[2021-06-23 12:13] LABS: Calcium 7.8 mg/dL (8.6-10.3)
[2021-06-23 12:15] LABS: Potassium 5.4 mmol/L (3.5-5.0)
[2021-06-23] MEDS ORDERED: SODIUM ZIRCONIUM CYCLOSILICATE 5 GM PACKET PO ONE (13:39)
[2021-06-23 17:12] LABS: Potassium 4.8 mmol/L (3.5-5.0)
[2021-06-23] MEDS: Enoxaparin 40 MG/0.4 ML SYR SUBCUT SCH (19:54)
[2021-06-23] MEDS: Timolol 0.25% OPHTH.SOLN BTL BOTH EYES SCH (19:54)
[2021-06-23] MEDS ORDERED: hydrALAZINE 20 mg/ml 1 ML Vial IV IV SLOW PU PRN (22:20)
[2021-06-24 03:00] LABS: ABS Eosinophils 0.6 10^3/ul (0-0.6); ABS Lymphocytes 1.1 10^3/ul (1.0-4.8); ABS Monocytes 0.4 10^3/ul (0-0.8); ABS Neutrophils 10.8 10^3/ul (1.5-7.7); Eosinophil % 4.9 %; Hematocrit 19 % (35-47); Hemoglobin 6.6 g/dL (12.0-16.0); Lymphocyte % 8.4 %; Mean Corpuscular HGB Conc 34 g/dL (31-36); Mean Corpuscular Hemoglobin 29 pg (27-31); Mean Corpuscular Volume 86 fL (80-97); Mean Platelet Volume 7.5 fL (7.4-10.4); Nucleated Red Blood Cells % 0.2; Platelet Count 530 10^3/uL (150-450); Red Blood Count 2.24 10^6 /uL (3.70-4.87); Red Cell Distribution Width 17 % (10-15)
[2021-06-24 03:54] LABS: Albumin 3.3 g/dL (3.2-5.2); Albumin/Globulin Ratio 1.4 (1-3); Alkaline Phosphatase 99 U/L (35-149); Blood Urea Nitrogen 20 mg/dL (6-24); CO2 Carbon Dioxide 23 mmol/L (22-32); Calcium 7.9 mg/dL (8.6-10.3); Chloride 85 mmol/L (101-111); Globulin 2.3 g/dL (2-4); Glucose 117 mg/dL (70-100); Magnesium 1.9 mg/dL (1.9-2.7); Total Protein 5.6 g/dL (6.4-8.9)
[2021-06-24 03:57] LABS: Sodium 115 mmol/L (135-145)
[2021-06-24 03:58] LABS: Anion Gap 7 mmol/L (2-11)
[2021-06-24 04:11] LABS: ALT 1646 U/L (7-52)
[2021-06-24 04:20] LABS: Potassium Redraw 4.3 mmol/L (3.5-5.0)
[2021-06-24 04:25] LABS: Phosphorus 2.5 mg/dL (2.5-5.0)
[2021-06-24 05:14] LABS: Urine Appearance Cloudy; Urine Bilirubin Negative (Negative); Urine Blood 1+ (Negative); Urine Color Yellow; Urine Glucose 1+(50 mg/dL) (Negative); Urine Ketones Negative (Negative); Urine Nitrite Negative (Negative); Urine Protein Negative (Negative); Urine Specific Gravity 1.011 (1.002-1.030); Urine Urobilinogen Negative (Negative)
[2021-06-24 05:18] LABS: Urine Bacteria Absent (Absent); Urine Red Blood Cell 3+(>10/hpf) (Absent); Urine Squamous Epithelial Cell Present (Absent); Urine White Blood Cell Trace(0-5/hpf) (Absent); Urine Yeast Present (Absent)
[2021-06-24] MEDS: Aspirin EC 81 mg TAB.EC (enteric coated) PO SCH (08:26)
[2021-06-24] MEDS: Fluticasone NASAL SPRAY 50MCG 16 gm SPRAY BTL BOTH NARES SCH (08:27)
[2021-06-24] MEDS: Timolol 0.25% OPHTH.SOLN BTL BOTH EYES SCH ×2 (08:28→23:32)
[2021-06-24] MEDS: FERROUS FUMARATE PO SCH (08:58)
[2021-06-24] MEDS ORDERED: [UNRECOGNIZED DRUG - REMARK] SUBCUT ONE (09:00)
[2021-06-24] MEDS ORDERED: Hyaluronidase 15 units/mL for Extravasation Intradermal Use INTRADERM ONE (09:00)
[2021-06-24 12:19] LABS: Hepatitis B Surface Antigen Nonreactive (Nonreactive)
[2021-06-24 12:24] LABS: Hepatitis A Ab IgM Negative (Negative); Hepatitis B Core IgM Nonreactive (Nonreactive)
[2021-06-24 12:36] LABS: Hepatitis C Antibody Negative (Negative)
[2021-06-24] MEDS ORDERED: Metoprolol Tartrate 5 mg VIAL 5 ml VIAL (1 mg/ml) IV PRN (16:37)
[2021-06-24] MEDS: Enoxaparin 40 MG/0.4 ML SYR SUBCUT SCH (20:30)
[2021-06-25 05:06] LABS: Hematocrit 20 % (35-47); Mean Corpuscular HGB Conc 35 g/dL (31-36); Mean Corpuscular Hemoglobin 30 pg (27-31); Mean Corpuscular Volume 87 fL (80-97); Mean Platelet Volume 6.7 fL (7.4-10.4); Platelet Count 537 10^3/uL (150-450); Red Blood Count 2.33 10^6 /uL (3.70-4.87); Red Cell Distribution Width 18 % (10-15)
[2021-06-25 05:25] LABS: Albumin/Globulin Ratio 1.4 (1-3); Globulin 2.2 g/dL (2-4); Magnesium 1.7 mg/dL (1.9-2.7); Phosphorus 1.9 mg/dL (2.5-5.0); Potassium 3.9 mmol/L (3.5-5.0); Total Bilirubin 1.1 mg/dL (0.2-1.0); Total Protein 5.2 g/dL (6.4-8.9)
[2021-06-25] MEDS ORDERED: Sodium Phosphate IV 30 MMOLE in NS 0.9% 250 ml 250 ML IV ONE (09:30)
[2021-06-25] MEDS: Aspirin EC 81 mg TAB.EC (enteric coated) PO SCH (10:01)
[2021-06-25] MEDS: Fluticasone NASAL SPRAY 50MCG 16 gm SPRAY BTL BOTH NARES SCH (10:01)
[2021-06-25] MEDS: FERROUS FUMARATE PO SCH (10:01)
[2021-06-25] MEDS: Magnesium Sulfate IV 3 GM in NS 0.9% 100 ml BAG 100 ML IVPB ONE ×2 (10:24→21:00)
[2021-06-25] MEDS: Timolol 0.25% OPHTH.SOLN BTL BOTH EYES SCH ×2 (11:44→19:58)
[2021-06-25 12:11] LABS: TSH Ultra Thyroid Stim Horm 2.17 mcIU/mL (0.34-5.60)
[2021-06-25 12:13] LABS: C Reactive Protein 80.01 mg/L (<8.01)
[2021-06-25 12:17] LABS: Ferritin 763.4 ng/mL (11-307)
[2021-06-25] MEDS ORDERED: Potassium & Sodium Phos 250 mg = 1 PACKET PO ONE (15:00)
[2021-06-25] MEDS: Enoxaparin 40 MG/0.4 ML SYR SUBCUT SCH (19:57)
[2021-06-26 06:52] LABS: Hematocrit 23 % (35-47); Hemoglobin 8.1 g/dL (12.0-16.0); Mean Corpuscular HGB Conc 35 g/dL (31-36); Mean Corpuscular Hemoglobin 31 pg (27-31); Mean Corpuscular Volume 89 fL (80-97); Mean Platelet Volume 6.6 fL (7.4-10.4); Platelet Count 548 10^3/uL (150-450); Red Blood Count 2.61 10^6 /uL (3.70-4.87); Red Cell Distribution Width 19 % (10-15); White Blood Count 9.1 10^3/uL (3.5-10.8)
[2021-06-26 07:09] LABS: Albumin 3.2 g/dL (3.2-5.2); Albumin/Globulin Ratio 1.4 (1-3); Calcium 8.6 mg/dL (8.6-10.3); Globulin 2.3 g/dL (2-4); Magnesium 1.7 mg/dL (1.9-2.7); Phosphorus 2.5 mg/dL (2.5-5.0); Potassium 4.2 mmol/L (3.5-5.0); Total Bilirubin 1.2 mg/dL (0.2-1.0); Total Protein 5.5 g/dL (6.4-8.9)
[2021-06-26] MEDS ORDERED: Magnesium Sulfate IV 3 GM in NS 0.9% 100 ml BAG 100 ML IVPB ONE (09:37)
[2021-06-26] MEDS: Fluticasone NASAL SPRAY 50MCG 16 gm SPRAY BTL BOTH NARES SCH (10:30)
[2021-06-26] MEDS: Aspirin EC 81 mg TAB.EC (enteric coated) PO SCH (10:31)
[2021-06-26] MEDS: FERROUS FUMARATE PO SCH (10:31)
[2021-06-26] MEDS: Timolol 0.25% OPHTH.SOLN BTL BOTH EYES SCH ×2 (19:58→21:58)
[2021-06-26] MEDS: Enoxaparin 40 MG/0.4 ML SYR SUBCUT SCH (21:58)
[2021-06-27 05:14] LABS: Hematocrit 25 % (35-47); Hemoglobin 8.1 g/dL (12.0-16.0); Mean Corpuscular HGB Conc 32 g/dL (31-36); Mean Corpuscular Hemoglobin 29 pg (27-31); Mean Corpuscular Volume 89 fL (80-97); Mean Platelet Volume 6.6 fL (7.4-10.4); Platelet Count 575 10^3/uL (150-450); Red Blood Count 2.78 10^6 /uL (3.70-4.87); Red Cell Distribution Width 20 % (10-15); White Blood Count 11.7 10^3/uL (3.5-10.8)
[2021-06-27 05:33] LABS: Albumin 3.4 g/dL (3.2-5.2); Albumin/Globulin Ratio 1.5 (1-3); Calcium 8.8 mg/dL (8.6-10.3); Globulin 2.3 g/dL (2-4); Magnesium 1.8 mg/dL (1.9-2.7); Phosphorus 2.9 mg/dL (2.5-5.0); Potassium 4.2 mmol/L (3.5-5.0); Total Bilirubin 1.1 mg/dL (0.2-1.0); Total Protein 5.7 g/dL (6.4-8.9)
[2021-06-27] MEDS: Timolol 0.25% OPHTH.SOLN BTL BOTH EYES SCH ×2 (08:20→20:10)
[2021-06-27] MEDS: Aspirin EC 81 mg TAB.EC (enteric coated) PO SCH (08:20)
[2021-06-27] MEDS: FERROUS FUMARATE PO SCH (08:21)
[2021-06-27] MEDS: Fluticasone NASAL SPRAY 50MCG 16 gm SPRAY BTL BOTH NARES SCH (08:21)
[2021-06-27 09:50] LABS: Alpha 1 Antitrypsin A1A 248 mg/dL (100 - 190)
[2021-06-27] MEDS ORDERED: Magnesium Sulfate 2 gm BAG 2 GM/50 ML BAG IVPB ONE (13:31)
[2021-06-27] MEDS ORDERED: guaiFENesin 100 mg/5 ml LIQ unit dose cup PO PRN (13:54)
[2021-06-27] MEDS: Enoxaparin 40 MG/0.4 ML SYR SUBCUT SCH (20:10)
[2021-06-27] MEDS ORDERED: Senna TAB 8.6 mg TAB PO PRN (20:22)
[2021-06-28 07:15] LABS: Calcium 8.7 mg/dL (8.6-10.3)
[2021-06-28] MEDS: FERROUS FUMARATE PO SCH (08:11)
[2021-06-28] MEDS: Aspirin EC 81 mg TAB.EC (enteric coated) PO SCH (08:19)
[2021-06-28] MEDS: Fluticasone NASAL SPRAY 50MCG 16 gm SPRAY BTL BOTH NARES SCH (08:21)
[2021-06-28] MEDS: Timolol 0.25% OPHTH.SOLN BTL BOTH EYES SCH ×2 (08:22→23:07)
[2021-06-28 08:29] LABS: Magnesium 1.9 mg/dL (1.9-2.7)
[2021-06-28] MEDS: Magnesium Hydroxide LIQ 30 ML UDC PO PRN (10:30)
[2021-06-28 15:47] LABS: Ceruloplasmin 37.5 mg/dL
[2021-06-28] MEDS: Enoxaparin 40 MG/0.4 ML SYR SUBCUT SCH (23:07)
[2021-06-29] MEDS: FERROUS FUMARATE PO SCH (08:59)
[2021-06-29] MEDS: Aspirin EC 81 mg TAB.EC (enteric coated) PO SCH (09:01)
[2021-06-29] MEDS: Fluticasone NASAL SPRAY 50MCG 16 gm SPRAY BTL BOTH NARES SCH (09:02)
[2021-06-29] MEDS: Magnesium Hydroxide LIQ 30 ML UDC PO PRN (09:02)
[2021-06-29] MEDS: Timolol 0.25% OPHTH.SOLN BTL BOTH EYES SCH (09:02)
[2021-06-29 12:53] VITALS: BP 129/65
== END 2021-06-29 12:00 | DRG 641 ==
LOC: SUATTDRO 16:06 → ICU 16:06 → MEDTELE 06-25 18:33 → PMRU 06-29 13:20
PROVIDERS: ADMIT Surgery Surgical Critical Care; ATTEND Hospitalist

== ENCOUNTER 2021-06-29 07:14 | Inpatient (IN) ==
[2021-06-29] MEDS ORDERED: Dextrose 50% Syringe 50 ml 25 GM/50 ML SYRINGE IV PUSH PRN (13:04)
[2021-06-29] MEDS: Enoxaparin 40 MG/0.4 ML SYR SUBCUT SCH (21:08)
[2021-06-29] MEDS: Timolol 0.25% OPHTH.SOLN BTL BOTH EYES SCH (21:32)
[2021-06-30] MEDS: Aspirin EC 81 mg TAB.EC (enteric coated) PO SCH (08:13)
[2021-06-30] MEDS: Timolol 0.25% OPHTH.SOLN BTL BOTH EYES SCH ×2 (08:13→21:56)
[2021-06-30] MEDS: Fluticasone NASAL SPRAY 50MCG 16 gm SPRAY BTL BOTH NARES SCH (10:37)
[2021-06-30 20:23] LABS: Urine Appearance Turbid; Urine Bilirubin Negative (Negative); Urine Blood 1+ (Negative); Urine Color Amber; Urine Glucose 1+(50 mg/dL) (Negative); Urine Ketones Negative (Negative); Urine Nitrite Negative (Negative); Urine Protein 2+(100 mg/dL) (Negative); Urine Specific Gravity 1.016 (1.002-1.030); Urine Urobilinogen Negative (Negative)
[2021-06-30 20:28] LABS: Urine Bacteria 1+ (Absent); Urine Red Blood Cell 3+(>10/hpf) (Absent); Urine Squamous Epithelial Cell Present (Absent); Urine White Blood Cell 3+(>20/hpf) (Absent)
[2021-06-30] MEDS: Enoxaparin 40 MG/0.4 ML SYR SUBCUT SCH (21:55)
[2021-06-30] MEDS: Senna TAB 8.6 mg TAB PO PRN (21:58)
[2021-06-30] MEDS ORDERED: Ondansetron ODT 4 mg TAB 4 MG TAB PO PRN (22:44)
[2021-07-01 07:35] LABS: ABS Basophils 0.1 10^3/ul (0-0.2); ABS Eosinophils 0.5 10^3/ul (0-0.6); ABS Lymphocytes 2.5 10^3/ul (1.0-4.8); ABS Monocytes 0.6 10^3/ul (0-0.8); ABS Neutrophils 4.6 10^3/ul (1.5-7.7); Hematocrit 23 % (35-47); Hemoglobin 7.8 g/dL (12.0-16.0); Lymphocyte % 30.2 %; Mean Corpuscular HGB Conc 34 g/dL (31-36); Mean Corpuscular Hemoglobin 31 pg (27-31); Mean Corpuscular Volume 91 fL (80-97); Mean Platelet Volume 6.7 fL (7.4-10.4); Platelet Count 376 10^3/uL (150-450); Red Blood Count 2.55 10^6 /uL (3.70-4.87); Red Cell Distribution Width 21 % (10-15); White Blood Count 8.2 10^3/uL (3.5-10.8)
[2021-07-01 07:55] LABS: Albumin 3.5 g/dL (3.2-5.2); Albumin/Globulin Ratio 1.6 (1-3); Globulin 2.2 g/dL (2-4); Potassium 4.5 mmol/L (3.5-5.0); Total Bilirubin 0.7 mg/dL (0.2-1.0); Total Protein 5.7 g/dL (6.4-8.9)
[2021-07-01] MEDS: Fluticasone NASAL SPRAY 50MCG 16 gm SPRAY BTL BOTH NARES SCH (10:44)
[2021-07-01] MEDS: Aspirin EC 81 mg TAB.EC (enteric coated) PO SCH (10:44)
[2021-07-01] MEDS: Timolol 0.25% OPHTH.SOLN BTL BOTH EYES SCH ×2 (10:44→21:00)
[2021-07-01] MEDS: Magnesium Hydroxide LIQ 30 ML UDC PO PRN (16:23)
[2021-07-01] MEDS: Enoxaparin 40 MG/0.4 ML SYR SUBCUT SCH (21:00)
[2021-07-02 07:02] LABS: ABS Basophils 0.1 10^3/ul (0-0.2); ABS Eosinophils 0.3 10^3/ul (0-0.6); ABS Lymphocytes 2.3 10^3/ul (1.0-4.8); ABS Monocytes 0.8 10^3/ul (0-0.8); ABS Neutrophils 4.8 10^3/ul (1.5-7.7); Eosinophil % 4.1 %; Hematocrit 24 % (35-47); Hemoglobin 8.1 g/dL (12.0-16.0); Lymphocyte % 27.7 %; Mean Corpuscular HGB Conc 33 g/dL (31-36); Mean Corpuscular Hemoglobin 31 pg (27-31); Mean Corpuscular Volume 92 fL (80-97); Platelet Count 357 10^3/uL (150-450); Red Blood Count 2.65 10^6 /uL (3.70-4.87); Red Cell Distribution Width 21 % (10-15); White Blood Count 8.2 10^3/uL (3.5-10.8)
[2021-07-02 07:17] LABS: Calcium 9.1 mg/dL (8.6-10.3)
[2021-07-02 07:19] LABS: Potassium 5.4 mmol/L (3.5-5.0)
[2021-07-02] MEDS ORDERED: Sodium Polystyrene ORAL.SUSP 15 GM/60 ML BTL PO ONE ×3 (08:37→20:29)
[2021-07-02] MEDS: Aspirin EC 81 mg TAB.EC (enteric coated) PO SCH (10:31)
[2021-07-02] MEDS: Fluticasone NASAL SPRAY 50MCG 16 gm SPRAY BTL BOTH NARES SCH (10:31)
[2021-07-02] MEDS: Timolol 0.25% OPHTH.SOLN BTL BOTH EYES SCH ×2 (10:32→21:48)
[2021-07-02 17:05] LABS: Potassium 5.4 mmol/L (3.5-5.0)
[2021-07-02] MEDS: Enoxaparin 40 MG/0.4 ML SYR SUBCUT SCH (21:48)
[2021-07-03 00:19] LABS: Potassium 4.4 mmol/L (3.5-5.0)
[2021-07-03 07:52] LABS: Calcium 8.6 mg/dL (8.6-10.3); Potassium 4.4 mmol/L (3.5-5.0)
[2021-07-03] MEDS: Fluticasone NASAL SPRAY 50MCG 16 gm SPRAY BTL BOTH NARES SCH (07:57)
[2021-07-03] MEDS: Aspirin EC 81 mg TAB.EC (enteric coated) PO SCH (07:58)
[2021-07-03] MEDS: Timolol 0.25% OPHTH.SOLN BTL BOTH EYES SCH ×2 (08:38→21:56)
[2021-07-03] MEDS: Magnesium Hydroxide LIQ 30 ML UDC PO PRN (14:28)
[2021-07-03] MEDS: Senna TAB 8.6 mg TAB PO PRN (21:52)
[2021-07-03] MEDS: Enoxaparin 40 MG/0.4 ML SYR SUBCUT SCH (21:53)
[2021-07-04 07:12] LABS: Calcium 8.6 mg/dL (8.6-10.3); Potassium 4.2 mmol/L (3.5-5.0)
[2021-07-04] MEDS: Aspirin EC 81 mg TAB.EC (enteric coated) PO SCH (08:40)
[2021-07-04] MEDS: Timolol 0.25% OPHTH.SOLN BTL BOTH EYES SCH ×2 (08:42→21:29)
[2021-07-04] MEDS: Fluticasone NASAL SPRAY 50MCG 16 gm SPRAY BTL BOTH NARES SCH (08:42)
[2021-07-04] MEDS: Enoxaparin 40 MG/0.4 ML SYR SUBCUT SCH (21:29)
[2021-07-04] MEDS: Senna TAB 8.6 mg TAB PO PRN (21:30)
[2021-07-05] MEDS: Aspirin EC 81 mg TAB.EC (enteric coated) PO SCH (08:05)
[2021-07-05] MEDS: Timolol 0.25% OPHTH.SOLN BTL BOTH EYES SCH ×2 (08:08→21:40)
[2021-07-05] MEDS: Fluticasone NASAL SPRAY 50MCG 16 gm SPRAY BTL BOTH NARES SCH (08:54)
[2021-07-05] MEDS: Enoxaparin 40 MG/0.4 ML SYR SUBCUT SCH (21:41)
[2021-07-06 06:17] LABS: ABS Basophils 0.1 10^3/ul (0-0.2); ABS Eosinophils 0.4 10^3/ul (0-0.6); ABS Lymphocytes 1.8 10^3/ul (1.0-4.8); ABS Monocytes 0.5 10^3/ul (0-0.8); ABS Neutrophils 3.1 10^3/ul (1.5-7.7); Hematocrit 28 % (35-47); Hemoglobin 9.4 g/dL (12.0-16.0); Lymphocyte % 30.9 %; Mean Corpuscular HGB Conc 33 g/dL (31-36); Mean Corpuscular Hemoglobin 31 pg (27-31); Mean Corpuscular Volume 93 fL (80-97); Mean Platelet Volume 6.7 fL (7.4-10.4); Platelet Count 405 10^3/uL (150-450); Red Blood Count 3.07 10^6 /uL (3.70-4.87); Red Cell Distribution Width 20 % (10-15); White Blood Count 5.8 10^3/uL (3.5-10.8)
[2021-07-06 06:33] LABS: Calcium 8.7 mg/dL (8.6-10.3)
[2021-07-06] MEDS: Fluticasone NASAL SPRAY 50MCG 16 gm SPRAY BTL BOTH NARES SCH (08:15)
[2021-07-06] MEDS: Aspirin EC 81 mg TAB.EC (enteric coated) PO SCH (08:16)
[2021-07-06] MEDS: Timolol 0.25% OPHTH.SOLN BTL BOTH EYES SCH ×2 (08:18→21:29)
[2021-07-06] MEDS: Magnesium Hydroxide LIQ 30 ML UDC PO PRN (16:12)
[2021-07-06] MEDS: Enoxaparin 40 MG/0.4 ML SYR SUBCUT SCH (21:27)
[2021-07-06] MEDS: Senna TAB 8.6 mg TAB PO PRN (21:29)
[2021-07-07 06:32] VITALS: BP 148/75
[2021-07-07] MEDS: Aspirin EC 81 mg TAB.EC (enteric coated) PO SCH (09:18)
[2021-07-07] MEDS: Fluticasone NASAL SPRAY 50MCG 16 gm SPRAY BTL BOTH NARES SCH (09:19)
[2021-07-07] MEDS: Timolol 0.25% OPHTH.SOLN BTL BOTH EYES SCH (09:21)
== END 2021-07-07 14:53 | disposition home or self-care (01) | DRG 560 ==
LOC: PMRU 12:00
PROVIDERS: ADMIT Physical Medicine & Rehabilitation; ATTEND Physical Medicine & Rehabilitation

== ENCOUNTER 2023-09-14 17:02 | Inpatient (IN) ==
[2023-09-14 18:05] LABS: ABS Lymphocytes 0.9 10^3/uL (1.0-4.8); ABS Monocytes 0.4 10^3/uL (0.0-0.9); ABS Neutrophils 13.5 10^3/uL (1.5-7.6); ABS Nucleated RBC 0.01 10^3/ul; Eosinophil % 0.1 %; Hematocrit 36.7 % (35-45); Hemoglobin 12.1 g/dL (11.5-14.3); Lymphocyte % 6.1 %; Mean Corpuscular Hemoglobin 29.1 pg (27-33); Mean Corpuscular Hgb Conc 33.1 g/dL (31-36); Mean Corpuscular Volume 88.1 fL (80-97); Mean Platelet Volume 8.2 fL (7.5-11.2); Platelet Count 316 10^3/uL (150-450); Red Blood Count 4.17 10^6/uL (3.63-4.92); White Blood Count 14.9 10^3/uL (3.8-11.8)
[2023-09-14 18:24] LABS: Albumin 4.8 g/dL (3.2-5.2); Albumin/Globulin Ratio 1.3 (1-3); Calcium 10.3 mg/dL (8.6-10.3); Creatinine, Serum 1.03 mg/dL (0.51-0.95); Globulin 3.6 g/dL (2-4); Indirect Bilirubin 0.6 mg/dL (0.3-1.0); Potassium 4.4 mmol/L (3.5-5.0); Total Bilirubin 0.6 mg/dL (0.2-1.0); Total Protein 8.4 g/dL (6.4-8.9)
[2023-09-14 18:39] LABS: Activated Partial Thrombo Time 35.6 seconds (26.0-38.0); INR 1.01 (0.83-1.13)
[2023-09-14] MEDS ORDERED: Ondansetron 4 mg VIAL 2 MG/ML 2 ml VIAL IV ONE (19:14)
[2023-09-14] MEDS ORDERED: Lactated Ringers 1000 ml BAG 1,000 ML IV ONE (19:14)
[2023-09-14 19:22] LABS: C Reactive Protein 35.19 mg/L (<8.01)
[2023-09-14 19:38] LABS: High Sensitivity Troponin 1 Hr 465 pg/mL (<15)
[2023-09-14] MEDS ORDERED: cefTRIAXone 2 gm/50 mL D5W 2 GM/50 ML BAG IV ONE (22:16)
[2023-09-15 00:25] LABS: Urine Appearance Turbid; Urine Bilirubin Negative (Negative); Urine Blood 2+ (Negative); Urine Color Yellow; Urine Glucose 3+(>=500 mg/dL) (Negative); Urine Ketones 1+ (Negative); Urine Nitrite Negative (Negative); Urine Protein 3+(>=500 mg/dL) (Negative); Urine Specific Gravity 1.011 (1.002-1.030); Urine Urobilinogen Negative (Negative)
[2023-09-15 00:44] LABS: TSH Ultra Thyroid Stim Horm 1.91 mcIU/mL (0.34-5.60)
[2023-09-15 00:54] LABS: Urine Bacteria 1+ (Absent); Urine Red Blood Cell 2+(6-10/hpf) (Absent); Urine White Blood Cell 1+(6-10/hpf) (Absent)
[2023-09-15 00:55] LABS: Folate 13.31 ng/mL (5.90-24.80)
[2023-09-15] MEDS ORDERED: Dextrose 50% Syringe 50 ml 25 GM/50 ML SYRINGE IV PUSH PRN (05:25)
[2023-09-15] MEDS ORDERED: Enoxaparin 40 MG/0.4 ML SYR SUBCUT SCH (06:00)
[2023-09-15 06:57] LABS: ABS Basophils 0.1 10^3/uL (0.0-0.1); ABS Lymphocytes 1.4 10^3/uL (1.0-4.8); ABS Neutrophils 13.7 10^3/uL (1.5-7.6); Hematocrit 32.9 % (35-45); Lymphocyte % 8.5 %; Mean Corpuscular Hgb Conc 33.5 g/dL (31-36); Mean Corpuscular Volume 86.6 fL (80-97); Mean Platelet Volume 8.1 fL (7.5-11.2); Platelet Count 314 10^3/uL (150-450); Red Cell Distribution Width 14.9 % (12-17); White Blood Count 16.2 10^3/uL (3.8-11.8)
[2023-09-15] MEDS ORDERED: Lactated Ringers 1000 ml BAG 1,000 ML IV SCH (07:00)
[2023-09-15 07:15] LABS: Potassium 4.3 mmol/L (3.5-5.0)
[2023-09-15 07:16] LABS: Calcium 9.2 mg/dL (8.6-10.3); Creatinine, Serum 1.17 mg/dL (0.51-0.95); Magnesium 1.4 mg/dL (1.9-2.7); eGFR CKD-EPI 47.2 (>60)
[2023-09-15 07:24] LABS: PCO2 Arterial 41 mmHg (35-45); PO2 Arterial 99 mmHg (80-100)
[2023-09-15] MEDS ORDERED: Magnesium Sulfate 2 gm BAG 2 GM/50 ML BAG IVPB ONE (08:59)
[2023-09-15] MEDS ORDERED: Aspirin EC 81 mg TAB.EC (enteric coated) PO SCH (09:00)
[2023-09-15] MEDS ORDERED: Vancomycin 1,000 MG in NS 0.9% 250 ml 250 ML IVPB ONE (09:19)
[2023-09-15] MEDS ORDERED: Lactated Ringers 1000 ml BAG 1,000 ML IV ONE (09:22)
[2023-09-15] MEDS ORDERED: LORazepam 2 mg VIAL 1 ml IV PUSH ONE (09:33)
[2023-09-15] MEDS ORDERED: Lorazepam PYXIS KEY PRN (09:34)
[2023-09-15] MEDS ORDERED: Vancomycin per Pharmacy 1 EA NOTE FOLLOW UP SCH (10:00)
[2023-09-15] MEDS ORDERED: diazePAM INJ CARPUJECT 5 MG/ML SYRINGE IV ONE (10:30)
[2023-09-15] MEDS ORDERED: NS 0.9% IVPB SCH (11:00)
[2023-09-15] MEDS ORDERED: CEFTRIAXONE ADVAN IVPB SCH (11:00)
[2023-09-15] MEDS: Lactated Ringers 1000 ml BAG 1,000 ML IV SCH (13:51)
[2023-09-15] MEDS ORDERED: methylPREDNISolone SOD SUCC 40 mg/ml 1 ml VIAL IM SCH (14:00)
[2023-09-15] MEDS: cefTRIAXone 2 gm/50 mL D5W 2 GM/50 ML BAG IV SCH ×2 (14:58→21:13)
[2023-09-15] MEDS: Acyclovir IV 550 MG in NS 0.9% 100 ml BAG 100 ML IVPB SCH ×2 (16:09→21:08)
[2023-09-15] MEDS: Ampicillin ADVAN 2 GM in NS 0.9% 100 ml BAG 100 ML IVPB SCH ×3 (16:09→23:21)
[2023-09-15] MEDS ORDERED: methylPREDNISolone SOD SUCC 40 mg/ml 1 ml VIAL IV SCH (17:23)
[2023-09-15 18:08] LABS: Calcium 8.7 mg/dL (8.6-10.3); Creatinine, Serum 1.14 mg/dL (0.51-0.95); Magnesium 2.2 mg/dL (1.9-2.7); Potassium 3.7 mmol/L (3.5-5.0); eGFR CKD-EPI 48.7 (>60)
[2023-09-15] MEDS: methylPREDNISolone SOD SUCC 40 mg/ml 1 ml VIAL IV SCH (20:52)
[2023-09-15] MEDS ORDERED: cefTRIAXone ADVAN VIAL 1 GM in NS 0.9% 50 ML 50 ML IVPB SCH (23:00)
[2023-09-16] MEDS: Lactated Ringers 1000 ml BAG 1,000 ML IV SCH (00:40)
[2023-09-16] MEDS: methylPREDNISolone SOD SUCC 40 mg/ml 1 ml VIAL IV SCH (02:30)
[2023-09-16] MEDS: Ampicillin ADVAN 2 GM in NS 0.9% 100 ml BAG 100 ML IVPB SCH ×2 (06:16→11:24)
[2023-09-16 06:18] LABS: Hematocrit 35.5 % (35-45); Hemoglobin 11.4 g/dL (11.5-14.3); Mean Corpuscular Hemoglobin 29.1 pg (27-33); Mean Platelet Volume 8.4 fL (7.5-11.2); Platelet Count 251 10^3/uL (150-450); White Blood Count 14.5 10^3/uL (3.8-11.8)
[2023-09-16 06:19] LABS: ABS Lymphocytes 0.6 10^3/uL (1.0-4.8); ABS Monocytes 0.3 10^3/uL (0.0-0.9); ABS Neutrophils 13.5 10^3/uL (1.5-7.6); ABS Nucleated RBC 0.01 10^3/ul; Lymphocyte % 4.4 %
[2023-09-16] MEDS: Acyclovir IV 550 MG in NS 0.9% 100 ml BAG 100 ML IVPB SCH (08:59)
[2023-09-16] MEDS: cefTRIAXone 2 gm/50 mL D5W 2 GM/50 ML BAG IV SCH ×2 (09:03→21:03)
[2023-09-16] MEDS ORDERED: Lorazepam PYXIS KEY PRN (11:23)
[2023-09-16] MEDS ORDERED: LORazepam 2 mg VIAL 1 ml IV PUSH ONE (11:23)
[2023-09-16] MEDS ORDERED: diazePAM INJ CARPUJECT 5 MG/ML SYRINGE IV ONE ×3 (11:45→16:31)
[2023-09-16] MEDS ORDERED: NS 0.9% 1000 ml BAG 1,000 ML IV SCH (12:00)
[2023-09-16] MEDS ORDERED: Vancomycin 1000 MG in NS 0.9% 250 ML IVPB SCH (14:00)
[2023-09-16] MEDS ORDERED: Morphine 2 MG/ML SYRINGE IV PRN (15:29)
[2023-09-16] MEDS: Acetaminophen IV 1 GM/100ML 1,000 MG/100 ML BAG IV SCH ×2 (15:50→22:54)
[2023-09-16] MEDS: Enoxaparin 40 MG/0.4 ML SYR SUBCUT SCH (19:42)
[2023-09-17 06:56] LABS: ALT 13 U/L (7-52); Albumin/Globulin Ratio 1.3 (1-3); Alkaline Phosphatase 72 U/L (35-149); Anion Gap 17 mmol/L (2-16); Blood Urea Nitrogen 34 mg/dL (6-24); CO2 Carbon Dioxide 22 mmol/L (22-32); Calcium 8.2 mg/dL (8.6-10.3); Chloride 100 mmol/L (101-111); Creatinine, Serum 1.16 mg/dL (0.51-0.95); Glucose 149 mg/dL (70-100); Magnesium 2.2 mg/dL (1.9-2.7); Sodium 139 mmol/L (135-145); Total Bilirubin 0.2 mg/dL (0.2-1.0); eGFR CKD-EPI 47.7 (>60)
[2023-09-17] MEDS: cefTRIAXone 2 gm/50 mL D5W 2 GM/50 ML BAG IV SCH ×2 (10:09→20:53)
[2023-09-17] MEDS: Acetaminophen IV 1 GM/100ML 1,000 MG/100 ML BAG IV SCH ×2 (11:46→15:25)
[2023-09-17] MEDS ORDERED: Sulfur Hexaflouride MICROSPHR 25 MG VIAL ONE (13:28)
[2023-09-17] MEDS: Enoxaparin 40 MG/0.4 ML SYR SUBCUT SCH (19:37)
[2023-09-17 23:48] LABS: Anaplasma phagocytophilum Negative (Negative); B. miyamotoi PCR, B Negative (Negative); Babesia divergens/MO-1 Negative (Negative); Babesia ducani Negative (Negative); Ehrlichia chaffeensis Negative (Negative); Ehrlichia ewingii/canis Negative (Negative); Ehrlichia muris eauclairensis Negative (Negative)
[2023-09-18] MEDS: Acetaminophen IV 1 GM/100ML 1,000 MG/100 ML BAG IV SCH ×4 (02:50→23:21)
[2023-09-18 06:19] LABS: ABS Eosinophils 0.4 10^3/uL (0.0-0.5); ABS Lymphocytes 1.4 10^3/uL (1.0-4.8); ABS Monocytes 0.4 10^3/uL (0.0-0.9); ABS Neutrophils 4.7 10^3/uL (1.5-7.6); Eosinophil % 6.2 %; Hematocrit 32.7 % (35-45); Hemoglobin 11.2 g/dL (11.5-14.3); Lymphocyte % 19.9 %; Mean Corpuscular Hemoglobin 29.7 pg (27-33); Mean Corpuscular Hgb Conc 34.3 g/dL (31-36); Mean Corpuscular Volume 86.6 fL (80-97); Mean Platelet Volume 8.4 fL (7.5-11.2); Nucleated Red Blood Cells % 0.1 %/100WBC (0.0-0.8); Platelet Count 238 10^3/uL (150-450); Red Blood Count 3.78 10^6/uL (3.63-4.92); White Blood Count 6.9 10^3/uL (3.8-11.8)
[2023-09-18 06:37] LABS: Creatinine, Serum 1.08 mg/dL (0.51-0.95); Potassium 2.8 mmol/L (3.5-5.0); eGFR CKD-EPI 51.9 (>60)
[2023-09-18] MEDS: KCL 20 MEQ/100 ML IVPREMIX 20 MEQ/100 ML BAG IV SCH ×4 (08:26→17:02)
[2023-09-18] MEDS: cefTRIAXone 2 gm/50 mL D5W 2 GM/50 ML BAG IV SCH ×3 (09:01→22:48)
[2023-09-18] MEDS ORDERED: Vancomycin Trough Check NOTE FOLLOW UP ONE (13:30)
[2023-09-18] MEDS: Enoxaparin 40 MG/0.4 ML SYR SUBCUT SCH (20:57)
[2023-09-19 06:39] LABS: Magnesium 1.8 mg/dL (1.9-2.7)
[2023-09-19] MEDS ORDERED: Magnesium Sulfate IV 1GM/100ML 1 GM/100 ML BAG IV ONE (07:24)
[2023-09-19 07:51] LABS: Calcium 8.3 mg/dL (8.6-10.3); Creatinine, Serum 0.98 mg/dL (0.51-0.95); eGFR CKD-EPI 58.3 (>60)
[2023-09-19] MEDS: Acetaminophen IV 1 GM/100ML 1,000 MG/100 ML BAG IV SCH (09:00)
[2023-09-19] MEDS: cefTRIAXone 2 gm/50 mL D5W 2 GM/50 ML BAG IV SCH (09:36)
[2023-09-19 12:44] VITALS: BP 155/93
== END 2023-09-19 10:52 | DRG 64 ==
LOC: ED 17:02 → SUATTDRO 23:28 → EDHOLD 23:28 → MEDTELE 09-15 00:04
PROVIDERS: ADMIT Internal Medicine; ATTEND Hospitalist

== ENCOUNTER 2023-09-19 07:32 | Inpatient (IN) ==
[2023-09-19] MEDS ORDERED: Magnesium Hydroxide LIQ 30 ML UDC PO PRN (16:27)
[2023-09-19] MEDS ORDERED: Senna TAB 8.6 mg TAB PO PRN (16:27)
[2023-09-19] MEDS ORDERED: Dextrose 50% Syringe 50 ml 25 GM/50 ML SYRINGE IV PUSH PRN (16:33)
[2023-09-19] MEDS: Enoxaparin 40 MG/0.4 ML SYR SUBCUT SCH (20:30)
[2023-09-20] MEDS: Aspirin EC 81 mg TAB.EC (enteric coated) PO SCH (08:58)
[2023-09-20] MEDS: Enoxaparin 40 MG/0.4 ML SYR SUBCUT SCH (20:28)
[2023-09-21 07:03] LABS: ABS Basophils 0.1 10^3/uL (0.0-0.1); ABS Eosinophils 0.5 10^3/uL (0.0-0.5); ABS Lymphocytes 2.9 10^3/uL (1.0-4.8); ABS Monocytes 0.5 10^3/uL (0.0-0.9); ABS Neutrophils 4.7 10^3/uL (1.5-7.6); ABS Nucleated RBC 0.01 10^3/ul; Eosinophil % 5.8 %; Hematocrit 34.9 % (35-45); Hemoglobin 11.7 g/dL (11.5-14.3); Lymphocyte % 33.2 %; Mean Corpuscular Hemoglobin 29.5 pg (27-33); Mean Corpuscular Hgb Conc 33.5 g/dL (31-36); Mean Corpuscular Volume 87.9 fL (80-97); Mean Platelet Volume 8.2 fL (7.5-11.2); Nucleated Red Blood Cells % 0.1 %/100WBC (0.0-0.8); Platelet Count 286 10^3/uL (150-450); Red Blood Count 3.97 10^6/uL (3.63-4.92); White Blood Count 8.7 10^3/uL (3.8-11.8)
[2023-09-21 07:20] LABS: Albumin 3.8 g/dL (3.2-5.2); Albumin/Globulin Ratio 1.5 (1-3); Calcium 9.8 mg/dL (8.6-10.3); Creatinine, Serum 1.11 mg/dL (0.51-0.95); Globulin 2.6 g/dL (2-4); Total Bilirubin 0.4 mg/dL (0.2-1.0); Total Protein 6.4 g/dL (6.4-8.9); eGFR CKD-EPI 50.2 (>60)
[2023-09-21] MEDS: Aspirin EC 81 mg TAB.EC (enteric coated) PO SCH (09:20)
[2023-09-21] MEDS: Enoxaparin 40 MG/0.4 ML SYR SUBCUT SCH (20:01)
[2023-09-22] MEDS: Aspirin EC 81 mg TAB.EC (enteric coated) PO SCH (09:47)
[2023-09-22] MEDS: Enoxaparin 40 MG/0.4 ML SYR SUBCUT SCH (22:53)
[2023-09-23] MEDS: Aspirin EC 81 mg TAB.EC (enteric coated) PO SCH (09:56)
[2023-09-23] MEDS: Enoxaparin 40 MG/0.4 ML SYR SUBCUT SCH (20:36)
[2023-09-24] MEDS: Aspirin EC 81 mg TAB.EC (enteric coated) PO SCH (09:22)
[2023-09-24] MEDS: Enoxaparin 40 MG/0.4 ML SYR SUBCUT SCH (20:37)
[2023-09-25] MEDS: Aspirin EC 81 mg TAB.EC (enteric coated) PO SCH (08:04)
[2023-09-25] MEDS: Enoxaparin 40 MG/0.4 ML SYR SUBCUT SCH (21:23)
[2023-09-25] MEDS: Nystatin TOP POWDER 15 GM BTL TOPICAL SCH (21:55)
[2023-09-26] MEDS: Nystatin TOP POWDER 15 GM BTL TOPICAL SCH ×2 (09:32→22:28)
[2023-09-26] MEDS: Aspirin EC 81 mg TAB.EC (enteric coated) PO SCH (09:35)
[2023-09-26] MEDS: Enoxaparin 40 MG/0.4 ML SYR SUBCUT SCH (22:21)
[2023-09-27] MEDS: Aspirin EC 81 mg TAB.EC (enteric coated) PO SCH (07:59)
[2023-09-27] MEDS: Nystatin TOP POWDER 15 GM BTL TOPICAL SCH ×2 (11:18→21:29)
[2023-09-27] MEDS: Enoxaparin 40 MG/0.4 ML SYR SUBCUT SCH (21:32)
[2023-09-28 07:18] LABS: ABS Basophils 0.1 10^3/uL (0.0-0.1); ABS Eosinophils 0.3 10^3/uL (0.0-0.5); ABS Lymphocytes 1.7 10^3/uL (1.0-4.8); ABS Monocytes 0.6 10^3/uL (0.0-0.9); ABS Neutrophils 4.6 10^3/uL (1.5-7.6); Eosinophil % 4.2 %; Hematocrit 28.6 % (35-45); Hemoglobin 9.7 g/dL (11.5-14.3); Lymphocyte % 23.6 %; Mean Corpuscular Hemoglobin 29.9 pg (27-33); Mean Corpuscular Hgb Conc 33.9 g/dL (31-36); Mean Corpuscular Volume 88.2 fL (80-97); Mean Platelet Volume 8.2 fL (7.5-11.2); Platelet Count 308 10^3/uL (150-450); Red Blood Count 3.25 10^6/uL (3.63-4.92); Red Cell Distribution Width 14.7 % (12-17); White Blood Count 7.2 10^3/uL (3.8-11.8)
[2023-09-28 07:34] LABS: Albumin 3.6 g/dL (3.2-5.2); Albumin/Globulin Ratio 1.3 (1-3); Calcium 9.1 mg/dL (8.6-10.3); Creatinine, Serum 1.09 mg/dL (0.51-0.95); Globulin 2.7 g/dL (2-4); Potassium 4.2 mmol/L (3.5-5.0); Total Bilirubin 0.4 mg/dL (0.2-1.0); Total Protein 6.3 g/dL (6.4-8.9); eGFR CKD-EPI 51.4 (>60)
[2023-09-28] MEDS: Aspirin EC 81 mg TAB.EC (enteric coated) PO SCH (08:22)
[2023-09-28 10:48] LABS: Ferritin 198.6 ng/mL (11-307)
[2023-09-28 10:52] LABS: Folate 14.03 ng/mL (5.90-24.80)
[2023-09-28] MEDS: Nystatin TOP POWDER 15 GM BTL TOPICAL SCH ×2 (12:29→21:00)
[2023-09-28] MEDS: Enoxaparin 40 MG/0.4 ML SYR SUBCUT SCH (20:45)
[2023-09-29] MEDS: Aspirin EC 81 mg TAB.EC (enteric coated) PO SCH (10:03)
[2023-09-29] MEDS: Nystatin TOP POWDER 15 GM BTL TOPICAL SCH ×2 (10:10→21:26)
[2023-09-29] MEDS: Enoxaparin 40 MG/0.4 ML SYR SUBCUT SCH (21:25)
[2023-09-30] MEDS: Aspirin EC 81 mg TAB.EC (enteric coated) PO SCH (08:40)
[2023-09-30] MEDS: Nystatin TOP POWDER 15 GM BTL TOPICAL SCH ×2 (08:46→20:13)
[2023-09-30 10:41] LABS: ABS Basophils 0.2 10^3/uL (0.0-0.1); ABS Eosinophils 0.3 10^3/uL (0.0-0.5); ABS Lymphocytes 1.6 10^3/uL (1.0-4.8); ABS Monocytes 0.5 10^3/uL (0.0-0.9); ABS Neutrophils 5.6 10^3/uL (1.5-7.6); Eosinophil % 3.5 %; Hematocrit 30.8 % (35-45); Hemoglobin 10.4 g/dL (11.5-14.3); Lymphocyte % 19.6 %; Mean Corpuscular Hemoglobin 29.8 pg (27-33); Mean Corpuscular Hgb Conc 33.8 g/dL (31-36); Mean Corpuscular Volume 88.3 fL (80-97); Mean Platelet Volume 8.4 fL (7.5-11.2); Platelet Count 359 10^3/uL (150-450); Red Blood Count 3.49 10^6/uL (3.63-4.92); Red Cell Distribution Width 15.1 % (12-17); White Blood Count 8.1 10^3/uL (3.8-11.8)
[2023-09-30] MEDS: Enoxaparin 40 MG/0.4 ML SYR SUBCUT SCH (20:10)
[2023-10-01] MEDS: Aspirin EC 81 mg TAB.EC (enteric coated) PO SCH (08:37)
[2023-10-01] MEDS: Nystatin TOP POWDER 15 GM BTL TOPICAL SCH ×2 (12:33→21:32)
[2023-10-01] MEDS: Enoxaparin 40 MG/0.4 ML SYR SUBCUT SCH (21:24)
[2023-10-02] MEDS: Aspirin EC 81 mg TAB.EC (enteric coated) PO SCH (08:29)
[2023-10-02] MEDS: Nystatin TOP POWDER 15 GM BTL TOPICAL SCH ×2 (08:35→21:23)
[2023-10-02] MEDS: Enoxaparin 40 MG/0.4 ML SYR SUBCUT SCH (21:23)
[2023-10-03] MEDS: Aspirin EC 81 mg TAB.EC (enteric coated) PO SCH (10:54)
[2023-10-03] MEDS: Nystatin TOP POWDER 15 GM BTL TOPICAL SCH ×2 (10:55→21:57)
[2023-10-03] MEDS: Enoxaparin 40 MG/0.4 ML SYR SUBCUT SCH (21:54)
[2023-10-04] MEDS: Aspirin EC 81 mg TAB.EC (enteric coated) PO SCH (08:11)
[2023-10-04] MEDS: Nystatin TOP POWDER 15 GM BTL TOPICAL SCH ×2 (08:18→20:27)
[2023-10-04] MEDS: Enoxaparin 40 MG/0.4 ML SYR SUBCUT SCH (20:24)
[2023-10-05 07:02] LABS: ABS Basophils 0.1 10^3/uL (0.0-0.1); ABS Eosinophils 0.4 10^3/uL (0.0-0.5); ABS Monocytes 0.4 10^3/uL (0.0-0.9); ABS Neutrophils 2.9 10^3/uL (1.5-7.6); ABS Nucleated RBC 0.01 10^3/ul; Eosinophil % 6.6 %; Hematocrit 28.7 % (35-45); Hemoglobin 9.7 g/dL (11.5-14.3); Lymphocyte % 34.9 %; Mean Corpuscular Hemoglobin 30.2 pg (27-33); Mean Corpuscular Hgb Conc 33.9 g/dL (31-36); Mean Corpuscular Volume 88.9 fL (80-97); Mean Platelet Volume 8.2 fL (7.5-11.2); Nucleated Red Blood Cells % 0.2 %/100WBC (0.0-0.8); Platelet Count 363 10^3/uL (150-450); Red Blood Count 3.23 10^6/uL (3.63-4.92); White Blood Count 5.7 10^3/uL (3.8-11.8)
[2023-10-05 07:20] LABS: Albumin 3.8 g/dL (3.2-5.2); Albumin/Globulin Ratio 1.5 (1-3); Calcium 9.4 mg/dL (8.6-10.3); Creatinine, Serum 1.08 mg/dL (0.51-0.95); Globulin 2.5 g/dL (2-4); Potassium 4.3 mmol/L (3.5-5.0); Total Bilirubin 0.4 mg/dL (0.2-1.0); Total Protein 6.3 g/dL (6.4-8.9); eGFR CKD-EPI 51.9 (>60)
[2023-10-05] MEDS: Aspirin EC 81 mg TAB.EC (enteric coated) PO SCH (08:37)
[2023-10-05] MEDS: Nystatin TOP POWDER 15 GM BTL TOPICAL SCH ×2 (08:51→19:32)
[2023-10-05] MEDS: Enoxaparin 40 MG/0.4 ML SYR SUBCUT SCH (19:33)
[2023-10-06] MEDS: Aspirin EC 81 mg TAB.EC (enteric coated) PO SCH (09:19)
[2023-10-06] MEDS: Nystatin TOP POWDER 15 GM BTL TOPICAL SCH ×2 (09:38→20:17)
[2023-10-06] MEDS: Enoxaparin 40 MG/0.4 ML SYR SUBCUT SCH (20:17)
[2023-10-07] MEDS: Aspirin EC 81 mg TAB.EC (enteric coated) PO SCH (09:19)
[2023-10-07] MEDS: Nystatin TOP POWDER 15 GM BTL TOPICAL SCH ×2 (09:24→20:15)
[2023-10-07] MEDS: Bacitracin OINTMENT TUBE TOPICAL SCH ×2 (11:25→20:16)
[2023-10-07] MEDS: Enoxaparin 40 MG/0.4 ML SYR SUBCUT SCH (20:15)
[2023-10-08] MEDS: Bacitracin OINTMENT TUBE TOPICAL SCH ×2 (09:38→20:34)
[2023-10-08] MEDS: Aspirin EC 81 mg TAB.EC (enteric coated) PO SCH (09:38)
[2023-10-08] MEDS: Nystatin TOP POWDER 15 GM BTL TOPICAL SCH ×2 (09:40→20:34)
[2023-10-08] MEDS: Enoxaparin 40 MG/0.4 ML SYR SUBCUT SCH (20:34)
[2023-10-09] MEDS: Bacitracin OINTMENT TUBE TOPICAL SCH ×2 (09:07→20:06)
[2023-10-09] MEDS: Nystatin TOP POWDER 15 GM BTL TOPICAL SCH ×2 (09:08→20:20)
[2023-10-09] MEDS: Enoxaparin 40 MG/0.4 ML SYR SUBCUT SCH (20:06)
[2023-10-10] MEDS: Nystatin TOP POWDER 15 GM BTL TOPICAL SCH ×3 (00:32→20:57)
[2023-10-10] MEDS: Bacitracin OINTMENT TUBE TOPICAL SCH ×2 (12:44→20:59)
[2023-10-10] MEDS: Enoxaparin 40 MG/0.4 ML SYR SUBCUT SCH (20:56)
[2023-10-11] MEDS: Nystatin TOP POWDER 15 GM BTL TOPICAL SCH ×2 (07:23→20:00)
[2023-10-11] MEDS: Bacitracin OINTMENT TUBE TOPICAL SCH ×2 (10:41→20:03)
[2023-10-11] MEDS: Enoxaparin 40 MG/0.4 ML SYR SUBCUT SCH (20:07)
[2023-10-12 06:26] VITALS: BP 189/66
[2023-10-12 06:56] LABS: ABS Eosinophils 0.4 10^3/uL (0.0-0.5); ABS Lymphocytes 1.7 10^3/uL (1.0-4.8); ABS Monocytes 0.5 10^3/uL (0.0-0.9); ABS Neutrophils 3.2 10^3/uL (1.5-7.6); Eosinophil % 7.2 %; Hematocrit 31.5 % (35-45); Hemoglobin 10.6 g/dL (11.5-14.3); Lymphocyte % 29.3 %; Mean Corpuscular Hgb Conc 33.8 g/dL (31-36); Mean Corpuscular Volume 88.8 fL (80-97); Nucleated Red Blood Cells % 0.1 %/100WBC (0.0-0.8); Platelet Count 354 10^3/uL (150-450); Red Blood Count 3.55 10^6/uL (3.63-4.92); Red Cell Distribution Width 14.4 % (12-17); White Blood Count 5.8 10^3/uL (3.8-11.8)
[2023-10-12 07:11] LABS: Albumin/Globulin Ratio 1.5 (1-3); Calcium 9.4 mg/dL (8.6-10.3); Creatinine, Serum 1.05 mg/dL (0.51-0.95); Globulin 2.6 g/dL (2-4); Potassium 4.2 mmol/L (3.5-5.0); Total Bilirubin 0.3 mg/dL (0.2-1.0); Total Protein 6.6 g/dL (6.4-8.9); eGFR CKD-EPI 53.7 (>60)
[2023-10-12] MEDS: Nystatin TOP POWDER 15 GM BTL TOPICAL SCH (11:18)
[2023-10-12] MEDS: Bacitracin OINTMENT TUBE TOPICAL SCH (11:18)
== END 2023-10-12 14:21 | disposition home or self-care (01) | DRG 64 ==
LOC: PMRU 11:40
PROVIDERS: ADMIT Physical Medicine & Rehabilitation; ATTEND Physical Medicine & Rehabilitation

== ENCOUNTER 2024-01-31 19:43 | Observation (INO) ==
[2024-01-31 20:48] LABS: ABS Basophils 0.1 10^3/uL (0.0-0.1); ABS Eosinophils 0.3 10^3/uL (0.0-0.5); ABS Lymphocytes 1.3 10^3/uL (1.0-4.8); ABS Monocytes 0.6 10^3/uL (0.0-0.9); ABS Neutrophils 8.4 10^3/uL (1.5-7.6); ABS Nucleated RBC 0.01 10^3/ul; Eosinophil % 2.4 %; Hematocrit 36.9 % (35-45); Hemoglobin 12.3 g/dL (11.5-14.3); Lymphocyte % 12.5 %; Mean Corpuscular Hemoglobin 29.4 pg (27-33); Mean Corpuscular Hgb Conc 33.4 g/dL (31-36); Mean Platelet Volume 8.6 fL (7.5-11.2); Platelet Count 293 10^3/uL (150-450); Red Blood Count 4.19 10^6/uL (3.63-4.92); Red Cell Distribution Width 14.8 % (12-17); White Blood Count 10.6 10^3/uL (3.8-11.8)
[2024-01-31 21:24] LABS: Albumin 4.4 g/dL (3.2-5.2); Albumin/Globulin Ratio 1.8 (1-3); Creatinine, Serum 1.6 mg/dL (0.51-0.95); Globulin 2.4 g/dL (2-4); Magnesium 1.7 mg/dL (1.9-2.7); Potassium 5.7 mmol/L (3.5-5.0); Total Bilirubin 0.3 mg/dL (0.2-1.0); Total Protein 6.8 g/dL (6.4-8.9); eGFR CKD-EPI 32.4 (>60)
[2024-01-31 22:04] LABS: Urine Appearance Turbid; Urine Bilirubin Negative (Negative); Urine Blood 2+ (Negative); Urine Color Yellow; Urine Glucose Trace (Negative); Urine Ketones Negative (Negative); Urine Nitrite Negative (Negative); Urine Protein 2+ (>=100 mg/dL) (Negative); Urine Specific Gravity 1.019 (1.002-1.030); Urine Urobilinogen Negative (Negative); Urine pH 5.5 (5.0-8.0)
[2024-01-31 22:18] LABS: High Sensitivity Troponin 1 Hr 13 pg/mL (<15)
[2024-01-31 22:30] LABS: Urine Bacteria Absent /HPF (Absent); Urine Red Blood Cell 3+(>10/hpf) /HPF (0-Trace); Urine Squamous Epithelial Cell Present /HPF (Absent); Urine White Blood Cell 3+(>20/hpf) /HPF (0-Trace)
[2024-01-31] MEDS: cefTRIAXone 1 gm/50 mL D5W 1 GM/50 ML BAG IV ONE (23:36)
[2024-01-31] MEDS ORDERED: Fluticasone NASAL SPRAY 50MCG 16 gm SPRAY BTL BOTH NARES PRN (23:58)
[2024-01-31] MEDS ORDERED: Latanoprost 0.005% 2.5 ml BTL BOTH EYES PRN (23:58)
[2024-02-01 00:17] LABS: C Reactive Protein 1.63 mg/L (<8.01)
[2024-02-01] MEDS: Lactated Ringers 1000 ml BAG 1,000 ML IV ONE (00:39)
[2024-02-01] MEDS: SODIUM ZIRCONIUM CYCLOSILICATE 10 GM PACKET PO ONE (01:00)
[2024-02-01 06:17] LABS: ABS Eosinophils 0.4 10^3/uL (0.0-0.5); ABS Lymphocytes 1.9 10^3/uL (1.0-4.8); ABS Monocytes 0.7 10^3/uL (0.0-0.9); ABS Neutrophils 6.4 10^3/uL (1.5-7.6); Eosinophil % 3.8 %; Hematocrit 35.8 % (35-45); Hemoglobin 12.2 g/dL (11.5-14.3); Lymphocyte % 20.4 %; Mean Corpuscular Hemoglobin 29.5 pg (27-33); Mean Corpuscular Volume 86.9 fL (80-97); Mean Platelet Volume 8.2 fL (7.5-11.2); Platelet Count 272 10^3/uL (150-450); Red Blood Count 4.12 10^6/uL (3.63-4.92); Red Cell Distribution Width 14.8 % (12-17); White Blood Count 9.3 10^3/uL (3.8-11.8)
[2024-02-01 06:41] LABS: Calcium 9.7 mg/dL (8.6-10.3); Creatinine, Serum 1.15 mg/dL (0.51-0.95); Potassium 4.5 mmol/L (3.5-5.0); eGFR CKD-EPI 48.2 (>60)
[2024-02-01] MEDS: hydrALAZINE 20 mg/ml 1 ML Vial IV IV SLOW PU PRN (06:52)
[2024-02-01] MEDS ORDERED: Senna/Docusate 8.6/50 mg (NF) TAB PO SCH (09:00)
[2024-02-01] MEDS: Senna TAB 8.6 mg TAB PO SCH (09:22)
[2024-02-01] MEDS: CMCS: Mirabegron 25 mg ER TAB (NF) PO SCH (09:22)
[2024-02-01] MEDS: Cholecalciferol (VIT D3) 400 units TAB PO SCH (09:22)
[2024-02-01] MEDS: CMCS: Solifenacin 5 mg TAB (NF) PO SCH (09:23)
[2024-02-01] MEDS: Docusate LIQ 100 MG/10 ML UDC PO SCH (09:25)
[2024-02-01] MEDS: Heparin 5000 UNITS/ML 1 mL VIAL SUBCUT SCH (09:29)
[2024-02-01] MEDS: NF: Estradiol VAG CM (NF) 1 APPLIC TUBE VAGINAL SCH (09:32)
[2024-02-01] MEDS: IRON VITAMIN C PO SCH (09:33)
[2024-02-01] MEDS: MOMETASONE BOTH NARES SCH (09:33)
[2024-02-01] MEDS: Magnesium Sulfate IV 1GM/100ML 1 GM/100 ML BAG IV ONE (12:09)
[2024-02-01 14:04] VITALS: BP 110/55
[2024-02-01] MEDS ORDERED: cefTRIAXone 1 gm/50 mL D5W 1 GM/50 ML BAG IV SCH ×2 (23:00)
== END 2024-02-01 14:40 | disposition home or self-care (01) ==
LOC: EDHOLD 19:43 → ED 19:43 → MEDTELE 02-01 03:36
PROVIDERS: ADMIT Student in an Organized Health Care Education/Training Program; ATTEND Internal Medicine

== ENCOUNTER 2024-06-09 18:18 | Inpatient (IN) ==
[2024-06-09] MEDS ORDERED: Ondansetron 4 mg VIAL 2 MG/ML 2 ml VIAL ONE (18:52)
[2024-06-09] MEDS ORDERED: Iodixanol (CONTRAST) 320 MG/ML 100 ML SDV IV ONE (19:06)
[2024-06-09 19:21] LABS: ABS Basophils 0.1 10^3/uL (0.0-0.1); ABS Eosinophils 0.1 10^3/uL (0.0-0.5); ABS Lymphocytes 1.2 10^3/uL (1.0-4.8); ABS Monocytes 0.9 10^3/uL (0.0-0.9); ABS Neutrophils 11.5 10^3/uL (1.5-7.6); ABS Nucleated RBC 0.01 10^3/ul; Eosinophil % 0.7 %; Hematocrit 31.3 % (35-45); Hemoglobin 10.3 g/dL (11.5-14.3); Lymphocyte % 8.6 %; Mean Corpuscular Hemoglobin 28.4 pg (27-33); Mean Corpuscular Hgb Conc 32.8 g/dL (31-36); Mean Corpuscular Volume 86.4 fL (80-97); Mean Platelet Volume 8.2 fL (7.5-11.2); Nucleated Red Blood Cells % 0.1 %/100WBC (0.0-0.8); Platelet Count 359 10^3/uL (150-450); Red Blood Count 3.62 10^6/uL (3.63-4.92); Red Cell Distribution Width 14.2 % (12-17); White Blood Count 13.8 10^3/uL (3.8-11.8)
[2024-06-09 19:25] LABS: Activated Partial Thrombo Time 33.4 seconds (26.0-38.0); INR 1.01 (0.85-1.14)
[2024-06-09 19:41] LABS: ALT 12 U/L (7-52); AST 14 U/L (13-39); Albumin 3.8 g/dL (3.2-5.2); Albumin/Globulin Ratio 1.5 (1-3); Alkaline Phosphatase 95 U/L (35-149); Anion Gap 11 mmol/L (2-16); Blood Urea Nitrogen 48 mg/dL (6-24); CO2 Carbon Dioxide 27 mmol/L (22-32); Calcium 9.5 mg/dL (8.6-10.3); Chloride 95 mmol/L (101-111); Cholesterol 127 mg/dL; Creatinine, Serum 1.03 mg/dL (0.51-0.95); Globulin 2.5 g/dL (2-4); Glucose 132 mg/dL (70-100); HDL Cholesterol 62.3 mg/dL; Indirect Bilirubin 0.4 mg/dL (0.3-1.0); LDL Cholesterol 46 mg/dL; Potassium 4.7 mmol/L (3.5-5.0); Sodium 133 mmol/L (135-145); Total Bilirubin 0.4 mg/dL (0.2-1.0); Total Protein 6.3 g/dL (6.4-8.9); Triglycerides 95 mg/dL
[2024-06-09] MEDS ORDERED: Sulfur Hexaflouride MICROSPHR 25 MG VIAL IV PRN (20:31)
[2024-06-09] MEDS: Lactated Ringers 1000 ml BAG IV.FLUID IV ONE (20:59)
[2024-06-09 22:03] LABS: Alcohol, S < 13 mg/dL (<13)
[2024-06-09 22:18] LABS: TSH Ultra Thyroid Stim Horm 2.93 mcIU/mL (0.34-5.60)
[2024-06-09 22:30] LABS: Vitamin B12 315 pg/mL (180-914)
[2024-06-09] MEDS ORDERED: Dextrose 50% Syringe 50 ml 25 GM/50 ML SYRINGE IV PUSH PRN (23:04)
[2024-06-09 23:18] LABS: Urine Appearance Clear; Urine Bilirubin Negative (Negative); Urine Blood Trace (Negative); Urine Color Colorless; Urine Glucose 3+ (>=300 mg/dL) (Negative); Urine Ketones 1+ (Negative); Urine Nitrite Negative (Negative); Urine Protein Trace (Negative); Urine Specific Gravity 1.042 (1.002-1.030); Urine Urobilinogen Negative (Negative)
[2024-06-10] MEDS ORDERED: guaiFENesin 100 mg/5 ml LIQ unit dose cup PO PRN (05:47)
[2024-06-10 07:06] LABS: ABS Eosinophils 0.1 10^3/uL (0.0-0.5); ABS Lymphocytes 1.2 10^3/uL (1.0-4.8); ABS Monocytes 0.6 10^3/uL (0.0-0.9); ABS Neutrophils 5.8 10^3/uL (1.5-7.6); ABS Nucleated RBC 0.01 10^3/ul; Eosinophil % 1.2 %; Hematocrit 29.5 % (35-45); Hemoglobin 10.2 g/dL (11.5-14.3); Mean Corpuscular Hemoglobin 29.7 pg (27-33); Mean Corpuscular Hgb Conc 34.7 g/dL (31-36); Mean Corpuscular Volume 85.6 fL (80-97); Mean Platelet Volume 8.3 fL (7.5-11.2); Nucleated Red Blood Cells % 0.1 %/100WBC (0.0-0.8); Platelet Count 305 10^3/uL (150-450); Red Blood Count 3.45 10^6/uL (3.63-4.92); Red Cell Distribution Width 14.1 % (12-17); White Blood Count 7.7 10^3/uL (3.8-11.8)
[2024-06-10 07:22] LABS: Albumin 3.6 g/dL (3.2-5.2); Albumin/Globulin Ratio 1.6 (1-3); Creatinine, Serum 0.89 mg/dL (0.51-0.95); Globulin 2.3 g/dL (2-4); Magnesium 1.7 mg/dL (1.9-2.7); Phosphorus 3.3 mg/dL (2.5-5.0); Potassium 4.3 mmol/L (3.5-5.0); Total Bilirubin 0.3 mg/dL (0.2-1.0); Total Protein 5.9 g/dL (6.4-8.9); eGFR CKD-EPI 65.5 (>60)
[2024-06-10] MEDS: Enoxaparin 40 MG/0.4 ML SYR SUBCUT SCH (07:25)
[2024-06-10] MEDS: Magnesium Sulfate 2 gm BAG 2 GM/50 ML BAG IVPB ONE (10:11)
[2024-06-10] MEDS ORDERED: Ondansetron 4 mg VIAL 2 MG/ML 2 ml VIAL IV PRN (12:15)
[2024-06-10] MEDS ORDERED: Acetaminophen IV 1 GM/100ML 1,000 MG/100 ML BAG IV PRN (12:16)
[2024-06-11 06:20] LABS: ABS Eosinophils 0.2 10^3/uL (0.0-0.5); ABS Lymphocytes 1.2 10^3/uL (1.0-4.8); ABS Monocytes 0.7 10^3/uL (0.0-0.9); ABS Nucleated RBC 0.01 10^3/ul; Eosinophil % 2.2 %; Hematocrit 33.4 % (35-45); Lymphocyte % 12.3 %; Mean Corpuscular Hemoglobin 28.3 pg (27-33); Mean Corpuscular Hgb Conc 32.9 g/dL (31-36); Mean Corpuscular Volume 86.2 fL (80-97); Mean Platelet Volume 8.4 fL (7.5-11.2); Nucleated Red Blood Cells % 0.1 %/100WBC (0.0-0.8); Platelet Count 387 10^3/uL (150-450); Red Blood Count 3.88 10^6/uL (3.63-4.92); Red Cell Distribution Width 13.9 % (12-17); White Blood Count 10.1 10^3/uL (3.8-11.8)
[2024-06-11 07:07] LABS: Calcium 9.1 mg/dL (8.6-10.3); Creatinine, Serum 0.86 mg/dL (0.51-0.95); Magnesium 2.1 mg/dL (1.9-2.7); Potassium 4.2 mmol/L (3.5-5.0); eGFR CKD-EPI 68.3 (>60)
[2024-06-11] MEDS ORDERED: Dextrose 50% Syringe 50 ml 25 GM/50 ML SYRINGE IV PUSH PRN (15:50)
[2024-06-11] MEDS ORDERED: Ondansetron ODT 4 mg TAB 4 MG TAB SL PRN (20:39)
[2024-06-13] MEDS ORDERED: Polyethylene Glycol 3350 17 GM PACKET PO PRN (04:45)
[2024-06-13 05:34] VITALS: BP 118/67
== END 2024-06-13 08:57 | DRG 65 ==
LOC: EDHOLD 18:18 → ED 18:18 → SUATTDRO 20:37 → MEDTELE 06-10 03:52
PROVIDERS: ADMIT Internal Medicine; ATTEND Student in an Organized Health Care Education/Training Program

== ENCOUNTER 2024-06-13 07:09 | Inpatient (IN) ==
[2024-06-13] MEDS ORDERED: Senna TAB 8.6 mg TAB PO PRN (10:57)
[2024-06-13] MEDS ORDERED: Polyethylene Glycol 3350 17 GM PACKET PO PRN (11:12)
[2024-06-13] MEDS ORDERED: Ondansetron ODT 4 mg TAB 4 MG TAB SL PRN (11:13)
[2024-06-13] MEDS: Enoxaparin 40 MG/0.4 ML SYR SUBCUT SCH (20:17)
[2024-06-13] MEDS: Nystatin TOP POWDER 15 GM BTL TOPICAL SCH (20:17)
[2024-06-14 05:53] LABS: ABS Eosinophils 0.4 10^3/uL (0.0-0.5); ABS Lymphocytes 1.8 10^3/uL (1.0-4.8); ABS Monocytes 0.6 10^3/uL (0.0-0.9); ABS Neutrophils 5.2 10^3/uL (1.5-7.6); Eosinophil % 5.2 %; Hematocrit 30.8 % (35-45); Hemoglobin 10.4 g/dL (11.5-14.3); Mean Corpuscular Hemoglobin 28.9 pg (27-33); Mean Corpuscular Hgb Conc 33.8 g/dL (31-36); Mean Corpuscular Volume 85.7 fL (80-97); Platelet Count 354 10^3/uL (150-450); Red Cell Distribution Width 13.9 % (12-17)
[2024-06-14 08:03] LABS: Albumin 3.6 g/dL (3.2-5.2); Albumin/Globulin Ratio 1.6 (1-3); Calcium 8.6 mg/dL (8.6-10.3); Creatinine, Serum 1.09 mg/dL (0.51-0.95); Globulin 2.3 g/dL (2-4); Potassium 4.5 mmol/L (3.5-5.0); Total Bilirubin 0.3 mg/dL (0.2-1.0); Total Protein 5.9 g/dL (6.4-8.9); eGFR CKD-EPI 51.4 (>60)
[2024-06-14] MEDS: Dextran 70/Hypromellose Tears Eye Drops 15 ml BTL (for Artificials Tears) BOTH EYES SCH (11:44)
[2024-06-14] MEDS: Latanoprost 0.005% 2.5 ml BTL BOTH EYES SCH (19:58)
[2024-06-18 07:28] LABS: ABS Eosinophils 0.3 10^3/uL (0.0-0.5); ABS Lymphocytes 1.7 10^3/uL (1.0-4.8); ABS Monocytes 0.5 10^3/uL (0.0-0.9); ABS Neutrophils 4.7 10^3/uL (1.5-7.6); Eosinophil % 4.7 %; Hemoglobin 9.9 g/dL (11.5-14.3); Lymphocyte % 23.3 %; Mean Corpuscular Hemoglobin 29.2 pg (27-33); Mean Corpuscular Hgb Conc 34.1 g/dL (31-36); Mean Corpuscular Volume 85.6 fL (80-97); Mean Platelet Volume 7.9 fL (7.5-11.2); Platelet Count 368 10^3/uL (150-450); Red Blood Count 3.39 10^6/uL (3.63-4.92); White Blood Count 7.3 10^3/uL (3.8-11.8)
[2024-06-18 07:41] LABS: Albumin 3.6 g/dL (3.2-5.2); Albumin/Globulin Ratio 1.8 (1-3); Calcium 8.9 mg/dL (8.6-10.3); Potassium 4.6 mmol/L (3.5-5.0); Total Bilirubin 0.3 mg/dL (0.2-1.0); Total Protein 5.6 g/dL (6.4-8.9)
[2024-06-24 19:41] LABS: Urine Appearance Clear; Urine Bilirubin Negative (Negative); Urine Blood Negative (Negative); Urine Color Colorless; Urine Glucose 3+ (>=300 mg/dL) (Negative); Urine Ketones Negative (Negative); Urine Nitrite Negative (Negative); Urine Protein Negative (Negative); Urine Specific Gravity 1.006 (1.002-1.030); Urine Urobilinogen Negative (Negative); Urine pH 6.5 (5.0-8.0)
[2024-06-24 19:49] LABS: Urine Bacteria 1+ /HPF (Absent); Urine Red Blood Cell Absent /HPF (0-Trace); Urine Squamous Epithelial Cell Present /HPF (Absent); Urine White Blood Cell 3+(>20/hpf) /HPF (0-Trace)
[2024-06-25 07:08] LABS: ABS Basophils 0.1 10^3/uL (0.0-0.1); ABS Eosinophils 0.2 10^3/uL (0.0-0.5); ABS Lymphocytes 1.6 10^3/uL (1.0-4.8); ABS Monocytes 0.5 10^3/uL (0.0-0.9); ABS Neutrophils 4.6 10^3/uL (1.5-7.6); Eosinophil % 3.2 %; Hematocrit 28.7 % (35-45); Hemoglobin 9.7 g/dL (11.5-14.3); Lymphocyte % 23.3 %; Mean Corpuscular Hemoglobin 28.9 pg (27-33); Mean Corpuscular Hgb Conc 33.7 g/dL (31-36); Mean Corpuscular Volume 85.7 fL (80-97); Mean Platelet Volume 7.6 fL (7.5-11.2); Platelet Count 332 10^3/uL (150-450); Red Blood Count 3.35 10^6/uL (3.63-4.92); Red Cell Distribution Width 14.8 % (12-17)
[2024-06-25 07:27] LABS: Albumin 3.7 g/dL (3.2-5.2); Albumin/Globulin Ratio 1.9 (1-3); Calcium 8.9 mg/dL (8.6-10.3); Creatinine, Serum 0.94 mg/dL (0.51-0.95); Globulin 1.9 g/dL (2-4); Potassium 4.4 mmol/L (3.5-5.0); Total Bilirubin 0.3 mg/dL (0.2-1.0); Total Protein 5.6 g/dL (6.4-8.9); eGFR CKD-EPI 61.3 (>60)
[2024-06-26] MEDS: Nitrofurantoin (monohydrate/macrocrystals) 100 mg CAP PO SCH (21:59)
[2024-07-01 06:34] VITALS: BP 140/68
== END 2024-07-01 14:10 | disposition home or self-care (01) | DRG 65 ==
LOC: PMRU 10:43
PROVIDERS: ADMIT Physical Medicine & Rehabilitation; ATTEND Physical Medicine & Rehabilitation

== ENCOUNTER 2024-07-13 11:20 | Inpatient (IN) ==
[2024-07-13 12:22] LABS: ABS Eosinophils 0.2 10^3/uL (0.0-0.5); ABS Lymphocytes 0.7 10^3/uL (1.0-4.8); ABS Monocytes 0.4 10^3/uL (0.0-0.9); ABS Neutrophils 6.5 10^3/uL (1.5-7.6); Eosinophil % 3.1 %; Hematocrit 38.5 % (35-45); Hemoglobin 12.9 g/dL (11.5-14.3); Lymphocyte % 8.3 %; Mean Corpuscular Hemoglobin 29.1 pg (27-33); Mean Corpuscular Hgb Conc 33.4 g/dL (31-36); Mean Corpuscular Volume 87.3 fL (80-97); Mean Platelet Volume 7.6 fL (7.5-11.2); Platelet Count 318 10^3/uL (150-450); Red Blood Count 4.41 10^6/uL (3.63-4.92); Red Cell Distribution Width 15.8 % (12-17); White Blood Count 7.9 10^3/uL (3.8-11.8)
[2024-07-13 12:48] LABS: High Sens Troponin Baseline 96 pg/mL (<15)
[2024-07-13 12:59] LABS: ALT 20 U/L (7-52); Albumin 4.7 g/dL (3.2-5.2); Albumin/Globulin Ratio 1.7 (1-3); Alkaline Phosphatase 94 U/L (35-149); Anion Gap 13 mmol/L (2-16); Blood Urea Nitrogen 20 mg/dL (6-24); C Reactive Protein 37.19 mg/L (<8.01); CO2 Carbon Dioxide 25 mmol/L (22-32); Calcium 9.8 mg/dL (8.6-10.3); Chloride 96 mmol/L (101-111); Creatinine, Serum 0.91 mg/dL (0.51-0.95); Globulin 2.7 g/dL (2-4); Glucose 100 mg/dL (70-100); Sodium 134 mmol/L (135-145); Total Bilirubin 0.5 mg/dL (0.2-1.0); Total Protein 7.4 g/dL (6.4-8.9); eGFR CKD-EPI 63.8 (>60)
[2024-07-13 14:08] LABS: Potassium Redraw 4.1 mmol/L (3.5-5.0)
[2024-07-13 16:25] LABS: Urine Appearance Clear; Urine Bilirubin Negative (Negative); Urine Blood Trace (Negative); Urine Color Light-Yellow; Urine Glucose Negative (Negative); Urine Ketones 1+ (Negative); Urine Nitrite Negative (Negative); Urine Protein 1+ (>=30 mg/dL) (Negative); Urine Specific Gravity 1.016 (1.002-1.030); Urine Urobilinogen Negative (Negative); Urine pH 6.5 (5.0-8.0)
[2024-07-13] MEDS ORDERED: cefTRIAXone 1 gm/50 mL D5W 1 GM/50 ML BAG IV ONE (16:38)
[2024-07-13] MEDS: cefTRIAXone 1 gm/50 mL D5W 1 GM/50 ML BAG IV SCH (16:45)
[2024-07-13] MEDS: NS 0.9% 1000 ml BAG 1,000 ML IV SCH ×2 (16:46→18:54)
[2024-07-13 16:49] LABS: Urine Bacteria Absent /HPF (Absent); Urine Red Blood Cell 1+(3-5/hpf) /HPF (0-Trace); Urine Squamous Epithelial Cell Present /HPF (Absent); Urine White Blood Cell Absent /HPF (0-Trace)
[2024-07-13] MEDS ORDERED: Dextrose 50% Syringe 50 ml 25 GM/50 ML SYRINGE IV PUSH PRN (16:52)
[2024-07-13 17:47] LABS: INR 0.94 (0.85-1.14)
[2024-07-13] MEDS: Remdesivir 100 mg Vial 200 MG in NS 0.9% 250 ml 210 ML IV ONE (18:03)
[2024-07-13] MEDS: Latanoprost 0.005% 2.5 ml BTL BOTH EYES SCH (23:05)
[2024-07-14] MEDS: Ondansetron 4 mg VIAL 2 MG/ML 2 ml VIAL IV ONE (03:35)
[2024-07-14 07:01] LABS: ABS Lymphocytes 0.8 10^3/uL (1.0-4.8); ABS Monocytes 0.4 10^3/uL (0.0-0.9); ABS Nucleated RBC 0.01 10^3/ul; Eosinophil % 0.4 %; Hematocrit 36.3 % (35-45); Lymphocyte % 9.7 %; Mean Corpuscular Hemoglobin 28.8 pg (27-33); Mean Corpuscular Volume 87.2 fL (80-97); Nucleated Red Blood Cells % 0.2 %/100WBC (0.0-0.8); Platelet Count 329 10^3/uL (150-450); Red Blood Count 4.17 10^6/uL (3.63-4.92); Red Cell Distribution Width 15.5 % (12-17); White Blood Count 8.3 10^3/uL (3.8-11.8)
[2024-07-14 07:03] LABS: INR 1.01 (0.85-1.14)
[2024-07-14 07:19] LABS: Albumin 4.1 g/dL (3.2-5.2); Albumin/Globulin Ratio 1.7 (1-3); Calcium 8.8 mg/dL (8.6-10.3); Creatinine, Serum 0.79 mg/dL (0.51-0.95); Globulin 2.4 g/dL (2-4); Potassium 4.2 mmol/L (3.5-5.0); Total Bilirubin 0.3 mg/dL (0.2-1.0); Total Protein 6.5 g/dL (6.4-8.9); eGFR CKD-EPI 75.6 (>60)
[2024-07-14] MEDS: Enoxaparin 40 MG/0.4 ML SYR SUBCUT SCH (17:57)
[2024-07-14] MEDS ORDERED: Remdesivir 100 mg Vial 100 MG in NS 0.9% 250 ml 230 ML IV SCH (21:00)
[2024-07-15 07:17] LABS: INR 1.05 (0.85-1.14)
[2024-07-15 07:19] LABS: Albumin 3.9 g/dL (3.2-5.2); Albumin/Globulin Ratio 1.8 (1-3); Calcium 8.7 mg/dL (8.6-10.3); Creatinine, Serum 0.88 mg/dL (0.51-0.95); Globulin 2.2 g/dL (2-4); Potassium 3.5 mmol/L (3.5-5.0); Total Bilirubin 0.3 mg/dL (0.2-1.0); Total Protein 6.1 g/dL (6.4-8.9); eGFR CKD-EPI 66.4 (>60)
[2024-07-16 07:05] LABS: INR 1.02 (0.85-1.14)
[2024-07-16 07:29] LABS: Albumin 3.9 g/dL (3.2-5.2); Albumin/Globulin Ratio 1.7 (1-3); Calcium 8.8 mg/dL (8.6-10.3); Creatinine, Serum 1.08 mg/dL (0.51-0.95); Globulin 2.3 g/dL (2-4); Potassium 3.7 mmol/L (3.5-5.0); Total Bilirubin 0.3 mg/dL (0.2-1.0); Total Protein 6.2 g/dL (6.4-8.9); eGFR CKD-EPI 51.9 (>60)
[2024-07-17 07:40] LABS: INR 1.01 (0.85-1.14)
[2024-07-17 07:46] LABS: Albumin 3.9 g/dL (3.2-5.2); Albumin/Globulin Ratio 1.9 (1-3); Calcium 8.9 mg/dL (8.6-10.3); Creatinine, Serum 0.92 mg/dL (0.51-0.95); Globulin 2.1 g/dL (2-4); Potassium 3.8 mmol/L (3.5-5.0); Total Bilirubin 0.3 mg/dL (0.2-1.0); eGFR CKD-EPI 62.9 (>60)
[2024-07-17 12:59] LABS: Glucose Confirmatory 462 mg/dL (70-100)
[2024-07-17] MEDS: Ondansetron 4 mg VIAL 2 MG/ML 2 ml VIAL IV PRN (14:52)
[2024-07-17] MEDS: KCL 20 MEQ/100 ML IVPREMIX 20 MEQ/100 ML BAG IV ONE (14:53)
[2024-07-18 07:51] LABS: Hematocrit 30.2 % (35-45); Hemoglobin 10.3 g/dL (11.5-14.3); Mean Corpuscular Hemoglobin 29.1 pg (27-33); Mean Corpuscular Hgb Conc 34.1 g/dL (31-36); Mean Corpuscular Volume 85.5 fL (80-97); Mean Platelet Volume 7.9 fL (7.5-11.2); Platelet Count 379 10^3/uL (150-450); Red Blood Count 3.53 10^6/uL (3.63-4.92); Red Cell Distribution Width 15.6 % (12-17); White Blood Count 9.4 10^3/uL (3.8-11.8)
[2024-07-18 08:05] LABS: Calcium 8.9 mg/dL (8.6-10.3); Creatinine, Serum 0.87 mg/dL (0.51-0.95); Potassium 4.1 mmol/L (3.5-5.0); eGFR CKD-EPI 67.3 (>60)
[2024-07-18] MEDS: Insulin GLARGINE 100 un/ml 10 ml VIAL SUBCUT SCH (20:31)
[2024-07-19] MEDS ORDERED: Dextran 70/Hypromellose Tears Eye Drops 15 ml BTL (for Artificials Tears) BOTH EYES PRN (10:40)
[2024-07-19] MEDS: Polyethylene Glycol 3350 17 GM PACKET PO SCH (11:45)
[2024-07-19 15:52] LABS: Magnesium 1.9 mg/dL (1.9-2.7)
[2024-07-19] MEDS: Insulin GLARGINE 100 un/ml 10 ml VIAL SUBCUT SCH (22:09)
[2024-07-20 09:51] LABS: Hematocrit 32.3 % (35-45); Hemoglobin 10.9 g/dL (11.5-14.3); Mean Corpuscular Hemoglobin 28.8 pg (27-33); Mean Corpuscular Hgb Conc 33.8 g/dL (31-36); Mean Platelet Volume 7.6 fL (7.5-11.2); Platelet Count 432 10^3/uL (150-450); Red Cell Distribution Width 15.4 % (12-17); White Blood Count 8.1 10^3/uL (3.8-11.8)
[2024-07-20 10:26] LABS: Calcium 9.1 mg/dL (8.6-10.3); Creatinine, Serum 0.89 mg/dL (0.51-0.95); Magnesium 1.9 mg/dL (1.9-2.7); Potassium 4.3 mmol/L (3.5-5.0); eGFR CKD-EPI 65.5 (>60)
[2024-07-20] MEDS: Dextran 70/Hypromellose Tears Eye Drops 15 ml BTL (for Artificials Tears) BOTH EYES SCH (11:56)
[2024-07-20] MEDS: Senna TAB 8.6 mg TAB PO PRN (21:29)
[2024-07-21 05:51] VITALS: BP 165/66
[2024-07-21] MEDS: Glycerin ADULT 2.4 gm SUPP PR ONE (09:26)
== END 2024-07-21 10:45 | DRG 177 ==
LOC: ED 11:20 → EDHOLD 11:20 → MED 19:41 → SUATTDRO 07-15 15:00
PROVIDERS: ADMIT Internal Medicine; ATTEND Student in an Organized Health Care Education/Training Program

== ENCOUNTER 2024-09-17 14:38 | Observation (INO) ==
[2024-09-17 16:12] LABS: Urine Appearance Turbid; Urine Bilirubin Negative (Negative); Urine Blood Negative (Negative); Urine Color Light-Yellow; Urine Glucose Negative (Negative); Urine Ketones Negative (Negative); Urine Nitrite 2+ (Negative); Urine Protein Trace (Negative); Urine Specific Gravity 1.016 (1.002-1.030); Urine Urobilinogen Negative (Negative); Urine pH 5.5 (5.0-8.0)
[2024-09-17 16:49] LABS: Urine Amorphous Crystals Present /HPF (Absent); Urine Bacteria 1+ /HPF (Absent); Urine Red Blood Cell 1+(3-5/hpf) /HPF (0-Trace); Urine Squamous Epithelial Cell Present /HPF (Absent); Urine White Blood Cell 3+(>20/hpf) /HPF (0-Trace)
[2024-09-17 17:26] LABS: ABS Basophils 0.1 10^3/uL (0.0-0.1); ABS Eosinophils 0.4 10^3/uL (0.0-0.5); ABS Lymphocytes 1.6 10^3/uL (1.0-4.8); ABS Monocytes 0.6 10^3/uL (0.0-0.9); ABS Neutrophils 11.3 10^3/uL (1.5-7.6); ABS Nucleated RBC 0.01 10^3/ul; Eosinophil % 2.9 %; Hematocrit 36.4 % (35-45); Hemoglobin 11.9 g/dL (11.5-14.3); Lymphocyte % 11.3 %; Mean Corpuscular Hemoglobin 27.6 pg (27-33); Mean Corpuscular Hgb Conc 32.6 g/dL (31-36); Mean Corpuscular Volume 84.8 fL (80-97); Mean Platelet Volume 8.2 fL (7.5-11.2); Platelet Count 446 10^3/uL (150-450); Red Blood Count 4.29 10^6/uL (3.63-4.92); Red Cell Distribution Width 15.5 % (12-17)
[2024-09-17 17:38] LABS: Activated Partial Thrombo Time 34.4 seconds (26.0-38.0); INR 0.95 (0.85-1.14)
[2024-09-17 17:57] LABS: Albumin 4.8 g/dL (3.5-5.7); Albumin/Globulin Ratio 1.8 (1-3); C Reactive Protein 9.47 mg/L (<8.01); Calcium 10.4 mg/dL (8.6-10.3); Creatinine, Serum 1.11 mg/dL (0.51-0.95); Globulin 2.6 g/dL (2-4); Potassium 4.8 mmol/L (3.5-5.0); Total Bilirubin 0.3 mg/dL (0.2-1.0); Total Protein 7.4 g/dL (6.4-8.9); eGFR CKD-EPI 49.9 (>60)
[2024-09-17] MEDS: Lactated Ringers 1000 ml BAG 1,000 ML IV ONE (20:08)
[2024-09-17 20:21] LABS: High Sensitivity Troponin 1 Hr 18 pg/mL (<15)
[2024-09-17] MEDS: cefTRIAXone 1 gm/50 mL D5W 1 GM/50 ML BAG IV ONE (20:23)
[2024-09-17] MEDS ORDERED: Dextrose 50% Syringe 50 ml 25 GM/50 ML SYRINGE IV PUSH PRN (23:46)
[2024-09-17] MEDS: NS 0.9% 1000 ml BAG 1,000 ML IV SCH (23:52)
[2024-09-18] MEDS: NS 0.9% 1000 ml BAG 1,000 ML IV SCH (02:18)
[2024-09-18] MEDS ORDERED: Fluticasone NASAL SPRAY 50MCG 16 gm SPRAY BTL BOTH NARES PRN (02:28)
[2024-09-18] MEDS ORDERED: Polyethylene Glycol 3350 17 GM PACKET PO PRN (02:28)
[2024-09-18] MEDS ORDERED: Dextran 70/Hypromellose Tears Eye Drops 15 ml BTL (for Artificials Tears) BOTH EYES PRN (02:28)
[2024-09-18] MEDS ORDERED: Senna TAB 8.6 mg TAB PO PRN (02:45)
[2024-09-18 06:15] LABS: ABS Basophils 0.1 10^3/uL (0.0-0.1); ABS Eosinophils 0.4 10^3/uL (0.0-0.5); ABS Monocytes 0.7 10^3/uL (0.0-0.9); Eosinophil % 4.6 %; Hematocrit 31.5 % (35-45); Hemoglobin 10.7 g/dL (11.5-14.3); Lymphocyte % 22.1 %; Mean Corpuscular Hemoglobin 29.1 pg (27-33); Mean Corpuscular Hgb Conc 34.1 g/dL (31-36); Mean Corpuscular Volume 85.2 fL (80-97); Mean Platelet Volume 7.9 fL (7.5-11.2); Platelet Count 340 10^3/uL (150-450); Red Blood Count 3.69 10^6/uL (3.63-4.92); Red Cell Distribution Width 15.4 % (12-17); White Blood Count 9.2 10^3/uL (3.8-11.8)
[2024-09-18 07:12] LABS: Anion Gap 8 mmol/L (2-16); Blood Urea Nitrogen 14 mg/dL (6-24); CO2 Carbon Dioxide 28 mmol/L (22-32); Calcium 8.4 mg/dL (8.6-10.3); Chloride 103 mmol/L (101-111); Glucose 148 mg/dL (70-100); Magnesium 1.6 mg/dL (1.9-2.7); Sodium 139 mmol/L (135-145); eGFR CKD-EPI 86.8 (>60)
[2024-09-18] MEDS: Heparin 5000 UNITS/ML 1 mL VIAL SUBCUT SCH (08:21)
[2024-09-18] MEDS: Calcium Polycarbophil 625mg TB PO SCH (08:22)
[2024-09-18] MEDS: Magnesium Sulfate 2 gm BAG 2 GM/50 ML BAG IVPB ONE ×2 (08:26→19:13)
[2024-09-18] MEDS: NS 0.9% 1000 ml BAG 1,000 ML IV ONE ×2 (08:26→11:02)
[2024-09-18] MEDS: MOMETASONE BOTH NARES SCH (08:32)
[2024-09-18 09:12] LABS: Potassium, Whole Blood 4.4 mmol/L (3.4-4.5)
[2024-09-18] MEDS: Lactated Ringers 1000 ml BAG 1,000 ML IV ONE (11:03)
[2024-09-18] MEDS: Latanoprost 0.005% 2.5 ml BTL BOTH EYES SCH (20:22)
[2024-09-18] MEDS: cefTRIAXone 1 gm/50 mL D5W 1 GM/50 ML BAG IV SCH (21:55)
[2024-09-18] MEDS ORDERED: cefTRIAXone 1 gm/50 mL D5W 1 GM/50 ML BAG IV SCH (22:00)
[2024-09-19 07:30] LABS: ABS Basophils 0.1 10^3/uL (0.0-0.1); ABS Eosinophils 0.7 10^3/uL (0.0-0.5); ABS Monocytes 0.6 10^3/uL (0.0-0.9); ABS Neutrophils 5.4 10^3/uL (1.5-7.6); ABS Nucleated RBC 0.01 10^3/ul; Eosinophil % 8.1 %; Hematocrit 32.8 % (35-45); Lymphocyte % 22.7 %; Mean Corpuscular Hemoglobin 28.5 pg (27-33); Mean Corpuscular Hgb Conc 33.5 g/dL (31-36); Mean Corpuscular Volume 85.2 fL (80-97); Mean Platelet Volume 7.9 fL (7.5-11.2); Nucleated Red Blood Cells % 0.1 %/100WBC (0.0-0.8); Platelet Count 387 10^3/uL (150-450); Red Blood Count 3.86 10^6/uL (3.63-4.92); Red Cell Distribution Width 15.7 % (12-17); White Blood Count 8.8 10^3/uL (3.8-11.8)
[2024-09-19 07:51] LABS: Calcium 8.9 mg/dL (8.6-10.3); Creatinine, Serum 0.78 mg/dL (0.51-0.95); Magnesium 2.7 mg/dL (1.9-2.7); Potassium 3.8 mmol/L (3.5-5.0); eGFR CKD-EPI 76.3 (>60)
[2024-09-19] MEDS: Potassium Chloride LIQUID 20 MEQ/15 ML LIQUID PO ONE (14:41)
[2024-09-19 15:05] LABS: TSH Ultra Thyroid Stim Horm 2.48 mcIU/mL (0.34-5.60)
[2024-09-20 10:03] VITALS: BP 103/54
== END 2024-09-20 14:15 | disposition home or self-care (01) ==
LOC: ED 14:38 → EDHOLD 14:38 → SUATTDRO 23:32 → MED 09-18 13:20
PROVIDERS: ADMIT Internal Medicine; ATTEND Student in an Organized Health Care Education/Training Program

== ENCOUNTER 2024-10-03 14:22 | Inpatient (IN) ==
[2024-10-03] MEDS: Lactated Ringers 1000 ml BAG IV.FLUID IV ONE (15:44)
[2024-10-03 15:50] LABS: ABS Basophils 0.1 10^3/uL (0.0-0.1); ABS Eosinophils 0.4 10^3/uL (0.0-0.5); ABS Lymphocytes 1.7 10^3/uL (1.0-4.8); ABS Monocytes 0.7 10^3/uL (0.0-0.9); ABS Neutrophils 9.4 10^3/uL (1.5-7.6); Eosinophil % 3.5 %; Hematocrit 36.3 % (35-45); Hemoglobin 11.8 g/dL (11.5-14.3); Lymphocyte % 13.7 %; Mean Corpuscular Hgb Conc 32.5 g/dL (31-36); Mean Corpuscular Volume 86.3 fL (80-97); Mean Platelet Volume 8.4 fL (7.5-11.2); Platelet Count 346 10^3/uL (150-450); Red Cell Distribution Width 15.6 % (12-17); White Blood Count 12.3 10^3/uL (3.8-11.8)
[2024-10-03 16:52] LABS: Albumin 4.4 g/dL (3.5-5.7); C Reactive Protein 5.61 mg/L (<8.01); Creatinine, Serum 1.04 mg/dL (0.51-0.95); Globulin 2.2 g/dL (2-4); Magnesium 1.7 mg/dL (1.9-2.7); Potassium 5.6 mmol/L (3.5-5.0); Total Bilirubin 0.3 mg/dL (0.2-1.0); Total Protein 6.6 g/dL (6.4-8.9)
[2024-10-03 17:33] LABS: High Sensitivity Troponin 1 Hr 14 pg/mL (<15)
[2024-10-03] MEDS: Magnesium Sulfate 2 gm BAG 2 GM/50 ML BAG IVPB ONE (17:56)
[2024-10-03 18:03] LABS: Urine Appearance Clear; Urine Bilirubin Negative (Negative); Urine Blood Negative (Negative); Urine Color Colorless; Urine Glucose Trace (Negative); Urine Ketones Negative (Negative); Urine Nitrite Negative (Negative); Urine Protein Negative (Negative); Urine Specific Gravity 1.004 (1.002-1.030); Urine Urobilinogen Negative (Negative)
[2024-10-03 18:15] LABS: Urine Bacteria 1+ /HPF (Absent); Urine Red Blood Cell Trace(0-2/hpf) /HPF (0-Trace); Urine Squamous Epithelial Cell Present /HPF (Absent); Urine White Blood Cell 1+(6-10/hpf) /HPF (0-Trace)
[2024-10-03] MEDS: cefTRIAXone 1 gm/50 mL D5W 1 GM/50 ML BAG IV ONE (19:40)
[2024-10-03] MEDS: methylPREDNISolone SOD SUCC 40 mg/ml 1 ml VIAL IV ONE (19:40)
[2024-10-04] MEDS: Enoxaparin 40 MG/0.4 ML SYR SUBCUT SCH (00:29)
[2024-10-04] MEDS ORDERED: Fluticasone NASAL SPRAY 50MCG 16 gm SPRAY BTL BOTH NARES PRN (01:32)
[2024-10-04] MEDS ORDERED: Senna/Docusate 8.6/50 mg (NF) TAB PO PRN (01:32)
[2024-10-04] MEDS ORDERED: Dextran 70/Hypromellose Tears Eye Drops 15 ml BTL (for Artificials Tears) BOTH EYES PRN (01:32)
[2024-10-04] MEDS ORDERED: Polyethylene Glycol 3350 17 GM PACKET PO PRN (01:32)
[2024-10-04] MEDS ORDERED: Senna TAB 8.6 mg TAB PO PRN (01:56)
[2024-10-04] MEDS ORDERED: Docusate LIQ 100 MG/10 ML UDC PO PRN (01:57)
[2024-10-04] MEDS ORDERED: Dextrose 50% Syringe 50 ml 25 GM/50 ML SYRINGE IV PUSH PRN (02:32)
[2024-10-04 03:23] LABS: ABS Monocytes 0.2 10^3/uL (0.0-0.9); ABS Neutrophils 9.3 10^3/uL (1.5-7.6); Eosinophil % 0.2 %; Hematocrit 34.1 % (35-45); Hemoglobin 11.6 g/dL (11.5-14.3); Lymphocyte % 9.2 %; Mean Corpuscular Volume 85.1 fL (80-97); Mean Platelet Volume 8.7 fL (7.5-11.2); Platelet Count 351 10^3/uL (150-450); Red Blood Count 4.01 10^6/uL (3.63-4.92); Red Cell Distribution Width 15.5 % (12-17); White Blood Count 10.5 10^3/uL (3.8-11.8)
[2024-10-04 03:27] LABS: Calcium 9.3 mg/dL (8.6-10.3); Creatinine, Serum 0.94 mg/dL (0.51-0.95); Potassium 4.5 mmol/L (3.5-5.0)
[2024-10-04 06:01] LABS: Calcium 9.1 mg/dL (8.6-10.3); Creatinine, Serum 0.96 mg/dL (0.51-0.95); Magnesium 2.1 mg/dL (1.9-2.7); Potassium 4.3 mmol/L (3.5-5.0); eGFR CKD-EPI 59.4 (>60)
[2024-10-04] MEDS: Iodixanol 320 (CONTRAST) 100 ML SDV IV ONE (07:11)
[2024-10-04] MEDS: Latanoprost 0.005% 2.5 ml BTL BOTH EYES SCH (20:14)
[2024-10-04] MEDS: cefTRIAXone 1 gm/50 mL D5W 1 GM/50 ML BAG IV SCH (20:31)
[2024-10-06 06:42] LABS: ABS Eosinophils 0.7 10^3/uL (0.0-0.5); ABS Lymphocytes 0.5 10^3/uL (1.0-4.8); ABS Monocytes 0.5 10^3/uL (0.0-0.9); ABS Neutrophils 10.2 10^3/uL (1.5-7.6); ABS Nucleated RBC 0.01 10^3/ul; Eosinophil % 5.6 %; Hematocrit 35.2 % (35-45); Hemoglobin 11.7 g/dL (11.5-14.3); Lymphocyte % 4.4 %; Mean Corpuscular Hemoglobin 28.6 pg (27-33); Mean Corpuscular Hgb Conc 33.3 g/dL (31-36); Mean Corpuscular Volume 85.7 fL (80-97); Mean Platelet Volume 8.5 fL (7.5-11.2); Platelet Count 304 10^3/uL (150-450); Red Blood Count 4.11 10^6/uL (3.63-4.92); Red Cell Distribution Width 15.4 % (12-17); White Blood Count 11.9 10^3/uL (3.8-11.8)
[2024-10-06 06:57] LABS: Calcium 9.1 mg/dL (8.6-10.3); Creatinine, Serum 0.91 mg/dL (0.51-0.95); Potassium 4.7 mmol/L (3.5-5.0); eGFR CKD-EPI 63.4 (>60)
[2024-10-06] MEDS: [UNRECOGNIZED DRUG - OTHER] SUBCUT SCH (10:32)
[2024-10-06] MEDS: SEMAGLUTIDE SUBCUT SCH (10:32)
[2024-10-08 08:52] LABS: Rapid COVID-19 Molecular Undetected (Undetected)
[2024-10-08 09:33] VITALS: BP 149/68
== END 2024-10-08 11:40 | disposition home health service (06) | DRG 71 ==
LOC: EDHOLD 14:22 → ED 14:22 → SUATTDRO 23:53 → OBSVTOIN 23:53 → MEDTELE 10-04 01:00
PROVIDERS: ADMIT Student in an Organized Health Care Education/Training Program; ATTEND Hospitalist